=== PATIENT | male | born 1950 | race Caucasian/White ===

== ENCOUNTER 2021-08-22 14:20 | Outpatient (CLI) | payer MEDICARE, SELFPAY ==
--- NOTE | ~2021-08-22 | XR_ITS ---
EXAMINATION: XR shoulder RT min 2V INDICATION: Right shoulder pain TECHNIQUE: Two views of the right shoulder are submitted. COMPARISON: 11/28/2018 FINDINGS: Normal alignment. No fracture. There is advanced osteoarthritis of the glenohumeral and acr omioclavicular joints with interval worsening. Median sternotomy wires and mediastinal surgical clips are seen, likely from prior coronary artery bypass grafting. IMPRESSION: 1. Advanced osteoarthritis of the glenohumeral and acromioclavicular joints with interval worsening. Reviewed, dictated and finalized at location A. IMPRESSION: 1. Advanced osteoarthritis of the glenohumeral and acromioclavicular joints wit h interval worsening.
--- NOTE | ~2021-08-22 | XR_ITS ---
EXAMINATION: XR shoulder LT min 2V INDICATION: Left shoulder pain TECHNIQUE: Two views of the left shoulder are submitted. COMPARISON: 11/28/2018 FINDINGS: Normal alignment. No fracture. There is advanced osteoarthritis of the glenohumeral and acr omioclavicular joints with interval worsening. Soft tissues are unremarkable. IMPRESSION: 1. Advanced osteoarthritis of the glenohumeral and acromioclavicular joints with interval worsening. Reviewed, dictated and finalized at location A. IMPRESSION: 1. Advanced osteoarthritis of the glenohumeral and acromioclavicular joints wit h interval worsening.
== END 2021-08-22 14:21 | disposition home or self-care (01) ==
LOC: ANHIMG 14:31
PROVIDERS: PCP Nurse Practitioner Family; Visit Provider Internal Medicine Rheumatology
DX: M19.012 Primary osteoarthritis, left shoulder (principal)
CPT/HCPCS: 73030

== ENCOUNTER 2021-10-25 16:14 | Inpatient (IN) | payer MEDICARE, SELFPAY ==
--- NOTE | ~2021-10-25 | XR_ITS ---
EXAMINATION: XR chest 1V portable DATE: 10/25/2021 17:34 INDICATION: Chest pain. TECHNIQUE: A single frontal view of the chest was obtained. COMPARISON: Chest 2 views 12/09/2018 FINDINGS: There are interstitial opacities and hazy airspace opacities throughout the lungs bilateral ly. No pleural effusion or pneumothorax. The heart size is normal. Median sternotomy wires are noted. IMPRESSION: 1. Diffuse lung disease, consistent with mild pulmonary edema versus atypical pneumonia. Reviewed, dictated and finalized at location A. OPERATOR IMPRESSION: 1. Diffuse lung disease, consistent with mild pulmonary edema versus atypical p neumonia.
--- NOTE | ~2021-10-25 | CT_ITS ---
EXAMINATION:CT diagnostic chest wo con DATE: 10/25/2021 19:35 INDICATION: Shortness of breath. TECHNIQUE: Computed tomography (CT) of the chest was performed without intravenous contrast. Automate d exposure control and iterative reconstruction technique were employed. The dose-length product (DLP ) was 803.94 mGy-cm. COMPARISON: Chest single view 10/25/2021 FINDINGS: There are groundglass opacities throughout the lungs bilaterally. There is septal thickenin g in the mid and lower lung zones bilaterally. There are airspace opacities in lingula, medial segmen t right middle lobe, and anterobasal segment right lower lobe. There are a few nodules in left lower lobe measuring up to 8 mm. There is a 5 mm nodule in right upper lobe. No pleural effusion. The heart size is normal. There are coronary artery calcifications. No pericardial effusion. There are changes of coronary artery bypass grafting. There are gallstones in the gallbladder which is normal in size. There is a 4.1 cm fusiform infrarenal aortic aneurysm. There is severe osteoarthritis of the glenohu meral joints. There is mild thoracic spondylosis. IMPRESSION: 1. Diffuse lung disease, consistent with pulmonary edema versus atypical pneumonia. 2. Pulmonary nodules measuring up to 8 mm, which may be granulomatous disease or less likely malignan cy. Noncontrast low-dose chest CT is recommended in 3 months. 2. Partially visualized 4.1 cm fusiform infrarenal aortic aneurysm. Reviewed, dictated and finalized at location A. TY NET MAKER IMPRESSION: 1. Diffuse lung disease, consistent with pulmonary edema versus atypical pneumo kya. 2. Pulmonary nodules measuring up to 8 mm, which may be granulomatous disease o r less likely malignancy. Noncontrast low-dose chest CT is recommended in 3 mon ths. 2. Partially visualized 4.1 cm fusiform infrarenal aortic aneurysm.
[2021-10-25 16:20] VITALS: BP 140/77; PULSE 89; TEMP 37; O2SAT 87
--- NOTE | 2021-10-25 16:21 | ECG_ITS ---
Measurements Intervals [place] Rate: 71 P: 25 LA: 175 QRS: -20 QRSD: 109 T: 29 QT: 361 QTc: 395 Interpretive Statements SINUS RHYTHM FREQUENT ATRIAL PREMATURE COMPLEXES DELAYED PRECORDIAL R/S TRANSITION VOLTAGE CRITERIA FOR LVH BASELINE ARTIFACT- II, III, AVF, V3-V6 ABNORMAL ECG Electronically Signed On 10-25-2021 20:11:53 COST AND RISK ANALYSIS MANAGER by Alcides Gant D.O.
[2021-10-25 16:29] VITALS: O2SAT 91
--- NOTE | 2021-10-25 16:29 | PC.NURSE ---
Pt placed on 2L, 91%
[2021-10-25 16:40] VITALS: BP 142/84; PULSE 78; RESP 21; O2SAT 94
--- NOTE | 2021-10-25 16:47 | ED.ARRPALP ---
HPI - Arrhythmia/Palpitations General Chief Complaint: Arrhythmia/Palpitations Stated Complaint: AFib problems Time Seen by Provider: 10/25/21 16:38 Source: patient Mode of arrival: ambulatory Limitations: no limitations History of Present Illness HPI narrative: Patient is a 70-year-old male complaining of flutter, I know it is my a fib accompanied by weakness, decreased energy for the past 2 days. Patient states that he has a history of A. fib and on Xarelto for it. Patient also states that when he has A. fib or flutter his oxygen saturation usually drops. Patient denies any chest pain, shortness of breath, abdominal pain, nausea, vomiting, diaphoresis, fever or chills. Related Data Home Medications Medication Instructions Recorded Confirmed cholecalciferol (vitamin D3) 25 1,000 unit PO BID cap 10/26/19 06/02/21 mcg (1,000 unit) capsule clopidogrel 75 mg tablet 75 mg PO DAILY 10/26/19 06/02/21 folic acid 1 mg tablet 1 mg PO DAILY 10/26/19 06/02/21 leflunomide 20 mg tablet 20 mg PO DAILY 10/26/19 06/02/21 meloxicam 15 mg tablet 15 mg PO DAILY PRN 10/26/19 06/02/21 methotrexate sodium 2.5 mg tablet 2.5 mg PO .COMPLEX 10/26/19 06/02/21 metoprolol tartrate 50 mg tablet 50 mg PO DAILY 10/26/19 06/02/21 rivaroxaban 20 mg tablet 20 mg PO DAILY 10/26/19 06/02/21 rosuvastatin 5 mg tablet 5 mg PO DAILY 10/26/19 06/02/21 potassium chloride 10 mEq 10 meq PO BID tablet 06/02/21 06/02/21 tablet,extended release Allergies Allergy/AdvReac Type Severity Reaction Status Date / Time No Known Allergies Allergy Verified 06/02/21 08:45 Review of Systems Review of Systems: All systems reviewed & are unremarkable except as noted in HPI and below Constitutional: Constitutional: Denies body ache(s), Denies chills, Denies excessive sweating, Denies fatigue, Denies fever(s), Denies headache(s), Denies lethargy, Denies malaise, Denies weakness and Denies weight loss Eyes: Eyes: Denies blurry vision, Denies change in vision and Denies loss of vision ENT: Denies dizziness, Denies ear discharge, Denies headache(s), Denies lip swelling, Denies epistaxis, Denies nasal congestion, Denies neck pain, Denies throat swelling and Denies tongue swelling Cardiovascular: Cardiovascular: Denies chest pain, Denies chest pain at rest, Denies chest pain with activity, Denies diaphoresis, Denies edema, Denies irregular heart rhythm, Denies lightheadedness, Denies dyspnea and Denies dyspnea on exertion Respiratory: Respiratory: Denies chest congestion, Denies cough, Denies hemoptysis, Denies dyspnea and Denies dyspnea on exertion Gastrointestinal: Gastrointestinal: Denies abdominal pain, Denies melena, Denies hematochezia, Denies diarrhea, Denies nausea, Denies vomiting and Denies hematemesis Musculoskeletal: Musculoskeletal: Denies abnormal gait, Denies deformity, Denies joint swelling, Denies limited range of motion, Denies neck pain and Denies numbness Neurologic: Denies Abnormal speech present, Denies abnormal gait, Denies confusion, Denies dizziness, Denies headache(s), Denies focal weakness, Denies loss of vision, Denies numbness, Denies Other visual disturbances, Denies Sensory deficit (Neuro) and Denies weakness Psychiatric: Psychiatric: Denies confusion, Denies depression, Denies auditory hallucinations, Denies homicidal ideation and Denies suicidal ideation Endocrine: Endocrine: Denies cold intolerance, Denies excessive sweating, Denies fatigue, Denies heat intolerance and Denies palpitations Hematologic/Lymphatic: Hematologic/Lymphatic: Denies easy bleeding and Denies easy bruising Allergic/Immunologic: Allergic/Immunologic: Denies lip swelling, Denies throat swelling and Denies tongue swelling PMFSH Past Medical History Medical History Atrial fibrillation CAD (coronary artery disease) Essential (primary) hypertension Hyperlipidemia Hypothyroid Prediabetes Rheumatoid arthritis Surgical His
[2021-10-25 16:57] LABS: Basophils Absolute Auto 0.1 K/mm3 (0.0-0.1); Basophils Percent Auto 0.8 % (0.2-1.2); Eosinophils Percent Auto 0.2 % (0-4.4); Hematocrit 32.8 % (42.0-52.0); Hemoglobin 11.1 g/dL (14.0-18.0); Immature Granulocyte Absolute 0.09 K/mm3 (0.00-0.031); Lymphocytes Absolute Auto 2.33 K/mm3 (0.9-3.2); Lymphocytes Percent Auto 26.1 % (18.3-44.2); Mean Corpuscular HGB Conc 33.8 g/dl (32-36); Mean Corpuscular Hemoglobin 32.3 pg (26-34); Mean Corpuscular Volume 95.3 fl (80-100); Mean Platelet Volume 9.7 fl (7.4-10.4); Monocytes Absolute Auto 0.5 K/mm3 (0.1-0.6); Monocytes Percent Auto 5.8 % (2.6-8.5); Neutrophils Absolute Auto 5.9 K/mm3 (1.3-6.7); Neutrophils Percent Auto 66.1 % (45.5-73.1); Platelet Count Result 257 k/mm3 (150-375); Red Blood Count 3.44 M/mm3 (4.6-6.20); Red Cell Distribution Width 15.2 % (11.5-14.5); White Blood Count 8.9 K/mm3 (4.5-10.0)
[2021-10-25 17:04] LABS: Prothrombin Time 13.5 Seconds (11.1-14.7)
[2021-10-25 17:07] LABS: Alanine Aminotransferase 19 U/L (4-50); Albumin Level 3.9 g/dL (3.5-5.1); Alkaline Phosphatase 66 U/L (38-126); Anion Gap 10 mmol/L (8-16); Aspartate Amino Transferase 44 U/L (17-59); Bilirubin,Total 0.7 mg/dL (0.2-1.3); Blood Urea Nitrogen 41 mg/dL (9-20); Calcium 9.3 mg/dL (8.4-10.2); Carbon Dioxide 23 mmol/L (22-30); Chloride 98 mmol/L (98-107); Estimated CRCL calculation 49 ml/min; Estimated Glomerular Filt Rate 50; Glucose 109 mg/dL (65-110); Sodium 131 mmol/L (137-145)
[2021-10-25 17:21] LABS: NT Pro B Type Natriuretic Pept 754 pg/mL (5-100); Troponin I 0.087 ng/mL (0.000-0.034)
[2021-10-25] MEDS: ASPIRIN 81 MG CHEWABLE TABLET 324 MG PO (18:08)
[2021-10-25 18:10] VITALS: BP 144/68; PULSE 78; RESP 16; O2SAT 98
--- NOTE | 2021-10-25 20:38 | PM.IMHP ---
H&P: HPI History of Present Illness Date/Time: 10/25/21 20:38 Chief Complaint: Palpitation Narrative: The patient is a 70-year-old male who presents to the ED with feeling of palpitations in the past couple of weeks. It was intermittent in the beginning but within the past 3 days it has been more persistent and hence came to the ED for evaluation. He also reports increasing shortness of breath and also decreased energy and weakness with a past 3 days. He thinks that he had atrial fibrillation but he did not check his rate at home as he had similar symptoms in the past whenever she had problems with atrial fibrillation. He denies any chest pain or abdominal pain or nausea vomiting or fever chills. He has been feeling a little more congested over the past few weeks and has been noted increasing shortness of breath with exertion. He denies any leg swelling and in fact has been noticed the leg swelling has been much better. He is using compression stockings of very released yesterday at home. In the ER he was noted to be in sinus rhythm with nonspecific ST-T changes. He remains sinus rhythm on telemetry. Chest x-ray noted diffuse lung disease consistent with mild pulmonary edema versus atypical pneumonia. CT scan of the chest was also done which showed diffuse lung disease consistent with pulmonary edema versus atypical pneumonia along with pulmonary nodules measuring up to 8 mm which may be granulomatous disease or less likely malignancy. Noncontrast low-dose CT chest is recommended in 3 months. Partially visualized 4.1 cm fusiform infrarenal aortic aneurysm. Laboratory evaluation revealed normal WBC count mildly anemia normal platelet count mild hyponatremia and renal insufficiency with creatinine of 1.4. His baseline creatinine is noted to be at 0.9 at least from 2019. He also was noted to have troponin elevation 0.087 and a BNP of 754. He has been given of 40 mg of IV Lasix in the ER and was placed on oxygen as his oxygen level was low at 84 86% on room air on arrival. He is vaccinated for COVID. He also received a dose of dexamethasone 10 mg IV x1 he is getting tested for COVID and getting admitted for further evaluation and management. Review of Systems Review of Systems: - CONSTITUTIONAL: Denies weight loss, fever and chills. - HEENT: Denies changes in vision and hearing - RESPIRATORY: Reports SOB and cough. - CV: Reports palpitations and denies CP. - GI: Denies abdominal pain, nausea, vomiting and diarrhea. - : Denies dysuria and urinary frequency. - MSK: Denies myalgia and joint pain. - SKIN: Denies rash and pruritus. - NEUROLOGICAL: Denies headache and syncope. - PSYCHIATRIC: Denies recent changes in mood. Denies anxiety and depression. All systems reviewed & are unremarkable except as noted in HPI and below Constitutional: Constitutional: Reports fatigue and Reports weakness Neurologic: Reports weakness Endocrine: Endocrine: Reports fatigue PMFSH Past Medical History Medical History Atrial fibrillation CAD (coronary artery disease) Essential (primary) hypertension Hyperlipidemia Hypothyroid Prediabetes Rheumatoid arthritis Surgical History Surgical History Hx of heart artery stent 11/2018 Family History Family History Father Family history of thyroid disease Family history of lung cancer Grandparent Carcinoma of colon Family history of heart disease in male family member before age 55 Mother Family history of primary malignant neoplasm of liver Other Family history of malignant neoplasm Social History Social History Smoking status: Former smoker Smoking end date: 11/25/98 Alcohol intake: current Meds Home Medications and Allergies Home Medications
[2021-10-25 20:50] LABS: Alveolar/Arterial O2 Gradient 173.7 mmHg; Base Excess ABG 0.2 mEq/l (+/-2.0); Carboxyhemoglobin 1.4 % THb (0-2.0); Fractional Inspired Oxygen 40 %; HCO3 ABG 23.5 mEq/l (22.0-26.0); Methemoglobin ABG 0.3 %THb (0-1.5); Oxygen Content ABG 14.7 %vol (16.0-22.0); Oxygen Saturation ABG 95.6 % (95.0-100.0); Oxyhemoglobin 91.4 % THb (90.0-100.0); PCO2 ABG 33.5 mmHg (35.0-45.0); PO2 FiO2 Ratio Arterial Blood 1.83 %; Reduced Hemoglobin 6.9 %THb (0-5.0); Total Hemoglobin 11.4 g/dL (12.0-18.0); pH ABG 7.464 (7.350-7.450)
[2021-10-25 20:51] LABS: Device NASAL CANNULA; Modified Allen's Test Pass; Site Drawn RIGHT RADIAL
[2021-10-25] MEDS: FUROSEMIDE INJ 40 MG/4 ML VIAL IV PUSH (20:59)
[2021-10-25] MEDS: DEXAMETHASONE SOD PHOS INJ 4 MG/ML VIAL 10 MG IV PUSH (20:59)
[2021-10-25 22:06] VITALS: BP 118/55; PULSE 52; RESP 16; O2SAT 95
[2021-10-25 22:58] VITALS: BP 108/61; PULSE 65; RESP 20; O2SAT 94
[2021-10-26] VITALS (17 sets, daily range): BP systolic 105–170; BP diastolic 55–103; PULSE 45–93; RESP 11–20; O2SAT 88–99
--- NOTE | 2021-10-26 01:19 | ECG_ITS ---
Measurements Intervals [place] Rate: 47 P: 25 CO: 177 QRS: -19 QRSD: 114 T: 16 QT: 447 QTc: 397 Interpretive Statements SINUS BRADYCARDIA INTRAVENTRICULAR CONDUCTION DELAY LEFT VENTRICULAR HYPERTROPHY BASELINE ARTIFACT- I, II, AVR, AVF, V3-V6 BORDERLINE ECG Electronically Signed On 10-26-2021 6:35:45 ROLLER CHECKER by Alcides Gant D.O.
--- NOTE | 2021-10-26 07:00 | PC.NURSE ---
Pt. was on 5L via nasal cannula prior to RN arrival.
[2021-10-26] MEDS: LEVOTHYROXINE SODIUM 100 MCG TABLET 200 MCG PO (07:30)
[2021-10-26] MEDS: POTASSIUM CHLORIDE 10 MEQ TABLET.ER PO ×2 (07:30→18:14)
--- NOTE | 2021-10-26 07:55 | PC.NURSE ---
breakfast tray ordered @ 07:55
[2021-10-26 08:42] LABS: Troponin I 0.038 ng/mL (0.000-0.034)
[2021-10-26] MEDS: LEFLUNOMIDE 20 MG TABLET PO (08:43)
[2021-10-26] MEDS: CLOPIDOGREL BISULFATE 75 MG TABLET PO (08:43)
[2021-10-26] MEDS: CHOLECALCIFEROL 1,000 UNITS TABLET 1000 UNITS PO (08:43)
[2021-10-26] MEDS: FUROSEMIDE INJ 40 MG/4 ML VIAL IV PUSH ×2 (08:43→18:14)
[2021-10-26] MEDS: FOLIC ACID 1 MG TABLET PO (08:43)
[2021-10-26] MEDS: DOXYCYCLINE HYCLATE 100 MG TABLET PO ×2 (08:43→22:16)
[2021-10-26] MEDS: ROSUVASTATIN 2.5 MG TABLET PO (08:43)
--- NOTE | 2021-10-26 12:16 | PM.IMPN ---
Progress Note: A&P Assessment and Plan (1) Acute respiratory failure with hypoxemia: Code(s): J96.01 - Acute respiratory failure with hypoxia Status: Acute Assessment and Plan: Night likely secondary to pulmonary congestion in the setting of congestive heart failure. Currently patient is improving with diuresis. Monitor daily intake output, daily chemistry. Currently requiring 3 L oxygen. Chest x-ray confirms pulmonary edema. Chest CT suggestive of the same diagnosis. Continue IV diuresis while closely monitoring kidney function. Chest x-ray also suggests possible pneumonia. Patient carries a diagnosis of rheumatoid arthritis, previously on immunosuppression with leflunomide. Patient was started on p.o. doxycycline to cover for possible community-acquired pneumonia. (2) Elevated troponin: Code(s): R77.8 - Other specified abnormalities of plasma proteins Status: Acute Assessment and Plan: Patient modest elevation of troponin. Troponin are downtrending. On today's labs troponin normal at 0.03. Perform echocardiogram. (3) Prediabetes: Code(s): R73.03 - Prediabetes Status: Acute Assessment and Plan: Diet and exercise. Monitor Accu-Chek a.c. and HS. (4) Bilateral lower extremity edema: Code(s): R60.0 - Localized edema Status: Acute Assessment and Plan: Modest and well tolerated. Patient on chronic dose of Lasix at home. Low-salt diet is advised. (5) Atrial fibrillation: Qualifiers: Atrial fibrillation type: unspecified Qualified Code(s): I48.91 - Unspecified atrial fibrillation Code(s): I48.91 - Unspecified atrial fibrillation Status: Chronic Assessment and Plan: Likely paroxysmal atrial fibrillation. On latest EKG patient was in normal sinus rhythm. Currently rate/rythm controlled with some episode of bradycardia. Continue to monitor (6) Rheumatoid arthritis: Qualifiers: Rheumatoid arthritis location: multiple sites Rheumatoid factor presence: unspecified presence Qualified Code(s): M06.9 - Rheumatoid arthritis, unspecified Code(s): M06.9 - Rheumatoid arthritis, unspecified Status: Chronic Assessment and Plan: Resume home medications. (7) Hx of heart artery stent: Code(s): Z95.5 - Presence of coronary angioplasty implant and graft Status: Chronic Assessment and Plan: Currently patient is asymptomatic. No chest pain. Perform echocardiogram. (8) CAD (coronary artery disease): Qualifiers: Coronary Disease-Associated Artery/Lesion type: unspecified vessel or lesion type [place] vs. transplanted heart: [place] heart Associated angina: without angina Qualified Code(s): I25.10 - Atherosclerotic heart disease of [place] coronary artery without angina pectoris Code(s): I25.10 - Atherosclerotic heart disease of [place] coronary artery without angina pectoris Status: Chronic Assessment and Plan: Currently patient is symptomatic; home stable hemodynamically without chest pain. Troponin downtrending. Perform echocardiogram. (9) Hyperlipidemia: Qualifiers: Hyperlipidemia type: unspecified Qualified Code(s): E78.5 - Hyperlipidemia, unspecified Code(s): E78.5 - Hyperlipidemia, unspecified Status: Chronic Assessment and Plan: Resume statin (10) Hypothyroid: Qualifiers: Hypothyroidism type: acquired Qualified Code(s): E03.9 - Hypothyroidism, unspecified Code(s): E03.9 - Hypothyroidism, unspecified Status: Chronic (11) Essential (primary) hypertension: Code(s): I10 - Essential (primary) hypertension Status: Chronic Assessment and Plan: Blood pressure currently under control resume home medication. (12) Pulmonary nodule: Code(s): R91.1 - Solitary pulmonary nodule Status: Acute Assessment and Plan: Follow-up CT scan as an outpatient on a [facility]
--- NOTE | 2021-10-26 12:24 | PC.NURSE ---
lunch tray ordered @ [id number]
--- NOTE | 2021-10-26 12:44 | PC.NURSE ---
Pt. titrated down to 3L via nasal cannula. Pt. oxygen saturation is 99%.
[2021-10-26 17:37] LABS: SARS-CoV-2 RNA PCR Negative
--- NOTE | 2021-10-26 17:40 | PM.CNCAR ---
Assessment and Plan Assessment and plan (1) CHF (congestive heart failure): Code(s): I50.9 - Heart failure, unspecified Status: Acute Assessment and Plan: Presented with complaints of progressive shortness of breath over the past couple of weeks. Chest x-ray with evidence of pulmonary edema, possible pneumonia. Patient has experienced clinical improvement since receiving several doses of IV diuretic. Breathing comfortably on 2 L of oxygen. He does have chronic bilateral lower extremity edema that is well managed with consistent use of compression stockings, on 40 mg Lasix b.i.d. at home. Does not have any significant lower extremity edema on exam today. Agree with 40 mg IV furosemide for now, likely switch to oral tomorrow Close monitoring of renal function. BMP in the morning. Echocardiogram has been ordered Further recommendations to follow review of echocardiogram. (2) Atrial fibrillation: Qualifiers: Atrial fibrillation type: unspecified Qualified Code(s): I48.91 - Unspecified atrial fibrillation Code(s): I48.91 - Unspecified atrial fibrillation Status: Chronic Assessment and Plan: History of paroxysmal atrial fibrillation. Patient says that he was experiencing some palpitations earlier this morning but they have since resolved. EKG from the emergency department shows sinus bradycardia. He is in sinus rhythm at the time of exam. He is on Xarelto for anticoagulation. (3) CAD (coronary artery disease): Qualifiers: Associated angina: without angina Coronary Disease-Associated Artery/Lesion type: unspecified vessel or lesion type [place] vs. transplanted heart: [place] heart Qualified Code(s): I25.10 - Atherosclerotic heart disease of [place] coronary artery without angina pectoris Code(s): I25.10 - Atherosclerotic heart disease of [place] coronary artery without angina pectoris Status: Chronic Assessment and Plan: History of coronary artery disease with multiple stents and CABG in 2006. He is not having any chest pain. His coronary disease is stable. Continue aspirin, statin. He also has Plavix on his medication list-I do not see an indication for this as his most recent intervention was more than 1 year ago. (4) Acute respiratory failure with hypoxemia: Code(s): J96.01 - Acute respiratory failure with hypoxia Status: Acute Assessment and Plan: Presented with respiratory distress and initially had O2 saturations in the 80s. Has improved with diuresis and is now saturating well on 2 L of oxygen. Possibly secondary to acute congestive heart failure. Also possible pneumonia. He has been started on doxycycline for possible CAP. (5) Elevated troponin: Code(s): R77.8 - Other specified abnormalities of plasma proteins Status: Acute Assessment and Plan: Mild, flat elevation. Probably secondary to CHF exacerbation. He does not have any anginal symptoms. No need for further workup in this regard. History of Present Illness History of Present Illness Consult date/time: 10/26/21 17:40 Requesting physician: Black Oden MD Consult reason: congestive heart failure Reason For Visit: Acute Respiratory Failure,Atrial Fib,Elevated Trop Narrative: Mr. Lawton is a 70-year-old male with a past medical history of coronary artery disease with stenting in 1998 and 2018 and CABG x2 in 2006,and paroxysmal atrial fibrillation. This is a patient who is followed in our office by Dr. Blount. He presented to the emergency department with complaints of shortness of breath. He has been experiencing worsening shortness of breath over the past couple of weeks. He also tells me that he has been having night sweats intermittently for 2-3 weeks. He did also have a fever on Saturday night of 100.8? according to the patient. He called his primary care doctor today to tell him about the symptoms and he was advised to proceed to the e
[2021-10-26] MEDS: RIVAROXABAN 20 MG TABLET PO (18:15)
--- NOTE | 2021-10-26 23:34 | PC.NURSE ---
Pt desat to 88% on 2L, pt moved to 4L O2. O2 sat at 92% at this time.
[2021-10-27] VITALS (53 sets, daily range): BP systolic 129–157; BP diastolic 57–93; PULSE 69–130; RESP 16–33; O2SAT 86–100
--- NOTE | 2021-10-27 | ECHO_ITS ---
Patient Info Name: Augusto Lawton Age: 70 years : 1950 Gender: Male Ht: 66 in Wt: 215 lbs BSA: 2.17 m2 HR: 75 bpm BP: 143 / 63 mmHg Heart Rhythm: Sinus Rhythm Technical Quality: Fair Exam Date: 10/27/2021 10:32 AM Exam Location: [facility] Pulmonary Exam Room: ED10 Patient Status: Inpatient Admit Date: 10/26/2021 Staff Ordering Physician: Petros Alvarez MD Metal Cut Off Saw Tender: Maria Isabel Guardado RDCS Attending Provider: Ele Miles MD Exam Type: CA echo dop color flow w con Study Info Indications - CAD CABG CHF Complete two-dimensional, color flow and Doppler transthoracic echocardiogram is performed with contrast to opacify the left ventricle and to improve the deliniation of the left ventricle endocardial borders. Contrast/Agitated Saline Contrast/Ag. Saline: Definity Amount: --- ml Administered By: Madeline Trotter RN Existing IV Access: Yes Summary 1. Definity contrast used to improve visualization. 2. There is mild concentric increased left ventricular wall thickness. 3. Left ventricular systolic function is normal, estimated at 65-70%. 4. Right ventricular chamber dimension is normal. 5. Left atrial chamber dimension is moderately enlarged. 6. Mildly sclerotic aortic valve otherwise no significant valve pathology. 7. Technically difficult examination. Left Ventricle Left ventricular chamber dimension is normal. Left ventricular systolic function is normal, estimated at 65-70%. There is mild concentric increased left ventricular wall thickness. The left ventricular diastolic function is grade I diastolic dysfunction. Definity contrast used to improve visualization. Right Ventricle Right ventricular chamber dimension is normal. Left Atria Left atrial chamber dimension is moderately enlarged. Right Atria Right atrial chamber dimension is normal. Aortic Valve The aortic valve is trileaflet. There is mild aortic valve sclerosis. Pulmonic Valve The pulmonic valve is not well visualized. Mitral Valve The mitral valve has normal leaflets. Tricuspid Valve The tricuspid valve leaflets are not well visualized. Pericardium/Pleural The pericardium appears normal. Aorta The aortic root size at the sinus of Valsalva is normal. Left Ventricular Outflow Tract Name Value Normal LVOT 2D LVOT Diameter 2.14 cm LVOT Doppler LVOT Peak Gradient 6 mmHg LVOT Mean Gradient 4 mmHg LVOT VTI 19.96 cm LVOT VTI/AV VTI Ratio 1.11 LVOT Stroke Volume 71.95 ml LVOT CO 22.24 l/min LVOT CI 10.25 L/min/m2 Pulmonic Valve Name Value Normal PV Doppler PV Peak Gradient 4 mmH
--- NOTE | 2021-10-27 08:04 | PC.NURSE ---
ordered breakfast tray for pt
[2021-10-27] MEDS: POTASSIUM CHLORIDE 10 MEQ TABLET.ER PO (08:08)
[2021-10-27] MEDS: LEVOTHYROXINE SODIUM 100 MCG TABLET 200 MCG PO (08:08)
--- NOTE | 2021-10-27 08:10 | PC.NURSE ---
Pt sitting up in chair. Pt states I am leaving today, no matter what. I can't take this anymore, im so uncomfortable
[2021-10-27 08:48] LABS: Anion Gap 13 mmol/L (8-16); Blood Urea Nitrogen 33 mg/dL (9-20); Calcium 9.5 mg/dL (8.4-10.2); Carbon Dioxide 24 mmol/L (22-30); Chloride 96 mmol/L (98-107); Estimated CRCL calculation 67 ml/min; Estimated Glomerular Filt Rate > 60; Glucose 84 mg/dL (65-110); Potassium 3.8 mmol/L (3.4-5.0); Sodium 133 mmol/L (137-145)
[2021-10-27] MEDS: RIVAROXABAN 20 MG TABLET PO (09:42)
[2021-10-27] MEDS: CHOLECALCIFEROL 1,000 UNITS TABLET 1000 UNITS PO (09:43)
[2021-10-27] MEDS: LEFLUNOMIDE 20 MG TABLET PO (09:43)
[2021-10-27] MEDS: DOXYCYCLINE HYCLATE 100 MG TABLET PO (09:43)
[2021-10-27] MEDS: ROSUVASTATIN 2.5 MG TABLET PO (09:44)
[2021-10-27] MEDS: FUROSEMIDE INJ 40 MG/4 ML VIAL IV PUSH ×2 (09:44→15:49)
[2021-10-27] MEDS: FOLIC ACID 1 MG TABLET PO (09:44)
[2021-10-27] MEDS: PERFLUTREN LIPID MICROSPHERES 1.5 ML VIAL DILUTED TO 10 ML TOTAL VOLUME (11:01)
--- NOTE | 2021-10-27 11:07 | PM.IMPN ---
Progress Note: A&P Assessment and Plan (1) Acute respiratory failure with hypoxemia: Code(s): J96.01 - Acute respiratory failure with hypoxia Status: Acute Assessment and Plan: This is likely secondary to pulmonary congestion in the setting of congestive heart failure. Currently patient is improving with diuresis. Monitor daily intake output, daily chemistry. Currently requiring 3 L oxygen. Chest x-ray confirms pulmonary edema. Chest CT suggestive of the same diagnosis. Continue IV diuresis while closely monitoring kidney function. Chest x-ray also suggests possible pneumonia. Patient carries a diagnosis of rheumatoid arthritis, previously on immunosuppression with leflunomide. Patient was started on p.o. doxycycline to cover for possible community-acquired pneumonia. (2) Atypical pneumonia: Code(s): J18.9 - Pneumonia, unspecified organism Status: Acute Assessment and Plan: Based on x-ray appearance on the. No leukocytosis. No fever. Patient started on doxycycline empirically. Blood cultures are pending. Patient decided to sign out AMA. (3) Elevated troponin: Code(s): R77.8 - Other specified abnormalities of plasma proteins Status: Acute Assessment and Plan: Patient modest elevation of troponin. Troponin are downtrending. On today's labs troponin normal at 0.03. Perform echocardiogram. (4) Prediabetes: Code(s): R73.03 - Prediabetes Status: Acute Assessment and Plan: Diet and exercise. Monitor Accu-Chek a.c. and HS. (5) Bilateral lower extremity edema: Code(s): R60.0 - Localized edema Status: Acute Assessment and Plan: Modest and well tolerated. Patient on chronic dose of Lasix at home. Low-salt diet is advised. (6) Atrial fibrillation: Qualifiers: Atrial fibrillation type: unspecified Qualified Code(s): I48.91 - Unspecified atrial fibrillation Code(s): I48.91 - Unspecified atrial fibrillation Status: Chronic Assessment and Plan: Likely paroxysmal atrial fibrillation. On latest EKG patient was in normal sinus rhythm. Currently rate/rythm controlled with some episode of bradycardia. Continue to monitor (7) Rheumatoid arthritis: Qualifiers: Rheumatoid arthritis location: multiple sites Rheumatoid factor presence: unspecified presence Qualified Code(s): M06.9 - Rheumatoid arthritis, unspecified Code(s): M06.9 - Rheumatoid arthritis, unspecified Status: Chronic Assessment and Plan: Resume home medications. (8) Hx of heart artery stent: Code(s): Z95.5 - Presence of coronary angioplasty implant and graft Status: Chronic Assessment and Plan: Currently patient is asymptomatic. No chest pain. Perform echocardiogram. (9) CAD (coronary artery disease): Qualifiers: Associated angina: without angina Coronary Disease-Associated Artery/Lesion type: unspecified vessel or lesion type [place] vs. transplanted heart: [place] heart Qualified Code(s): I25.10 - Atherosclerotic heart disease of [place] coronary artery without angina pectoris Code(s): I25.10 - Atherosclerotic heart disease of [place] coronary artery without angina pectoris Status: Chronic Assessment and Plan: Currently patient is symptomatic; home stable hemodynamically without chest pain. Troponin downtrending. Perform echocardiogram. (10) Hyperlipidemia: Qualifiers: Hyperlipidemia type: unspecified Qualified Code(s): E78.5 - Hyperlipidemia, unspecified Code(s): E78.5 - Hyperlipidemia, unspecified Status: Chronic Assessment and Plan: Resume statin (11) Hypothyroid: Qualifiers: Hypothyroidism type: acquired Qualified Code(s): E03.9 - Hypothyroidism, unspecified Code(s): E03.9 - Hypothyroidism, unspecified Status: Chronic (12) Essential (primary) hypertension: Code(s): I10 - Essential (p
--- NOTE | 2021-10-27 11:30 | PC.NURSE ---
Lunch tray ordered for pt
--- NOTE | 2021-10-27 12:19 | PM.DS ---
DS: Admitting Diagnosis Discharge Date 10/27/2021 Admitting Diagnosis #Palpitation #atypical community-acquired pneumonia # PAM mild creatinine 1.4 baseline creatinine 0.9 monitor renal function with diuresis # elevated troponin EKG # acute congestive heart failure # pulmonary nodules # infrarenal abdominal aortic aneurysm 4.1 cm # atrial fibrillation currently sinus rhythm # coronary artery disease status post CABG in 2006 and stent placement 2019 # chronic lower extremity edema uses lower extremity compression stockings currently no swelling noted # hypertension # hyperlipidemia # hypothyroidism # rheumatoid arthritis # borderline diabetes monitor # DVT prophylaxis: On Xarelto which will be resumed # Full code status DS: Discharge Diagnosis Discharge Diagnosis (1) Acute respiratory failure with hypoxemia: Code(s): J96.01 - Acute respiratory failure with hypoxia Status: Acute Assessment and Plan: Acute respiratory failure presenting with tachycardia and hypoxia; likely secondary to pulmonary congestion in the setting of congestive heart failure. Echocardiogram reveals normal ejection fraction 60-65% and only grade 1 diastolic dysfunction. Currently patient is clinically improving with diuresis. Monitor daily intake output, daily chemistry. Currently requiring 3 L oxygen. Chest x-ray confirms pulmonary edema. Chest CT suggestive of the same diagnosis. Continue IV diuresis while closely monitoring kidney function. Chest x-ray also suggests possible pneumonia. Patient carries a diagnosis of rheumatoid arthritis, previously on immunosuppression with leflunomide. Patient was started on p.o. doxycycline to cover for possible community-acquired pneumonia. (2) Elevated troponin: Code(s): R77.8 - Other specified abnormalities of plasma proteins Status: Acute Assessment and Plan: Patient modest elevation of troponin. Troponin are downtrending. On today's labs troponin normal at 0.03. Perform echocardiogram. (3) Prediabetes: Code(s): R73.03 - Prediabetes Status: Acute Assessment and Plan: Diet and exercise. Monitor Accu-Chek a.c. and HS. (4) Bilateral lower extremity edema: Code(s): R60.0 - Localized edema Status: Acute Assessment and Plan: Modest and well tolerated. Patient on chronic dose of Lasix at home. Low-salt diet, daily weight measurements are advised. . (5) Atrial fibrillation: Qualifiers: Atrial fibrillation type: unspecified Qualified Code(s): I48.91 - Unspecified atrial fibrillation Code(s): I48.91 - Unspecified atrial fibrillation Status: Chronic Assessment and Plan: Likely paroxysmal atrial fibrillation. On latest EKG patient was in normal sinus rhythm. Currently rate/rythm controlled with some episode of bradycardia. Continue to monitor (6) Rheumatoid arthritis: Qualifiers: Rheumatoid arthritis location: multiple sites Rheumatoid factor presence: unspecified presence Qualified Code(s): M06.9 - Rheumatoid arthritis, unspecified Code(s): M06.9 - Rheumatoid arthritis, unspecified Status: Chronic Assessment and Plan: Resume home medications. (7) Hx of heart artery stent: Code(s): Z95.5 - Presence of coronary angioplasty implant and graft Status: Chronic Assessment and Plan: Currently patient is asymptomatic. No chest pain. Bedside echocardiogram reveals left ventricular systolic function is normal, estimated at 65-70%. Right ventricular chamber dimension is normal. Left atrial chamber dimension is moderately enlarged. Mildly sclerotic aortic valve otherwise no significant valve pathology. Technically difficult examination. . (8) CAD (coronary artery disease): Qualifiers: Associated angina: without angina Coronary Disease-Associated Artery/Lesion type: unspecified vessel or lesion type [place] vs. transplanted heart:
--- NOTE | 2021-10-27 12:42 | PC.NURSE ---
special education secretary delivered room tray to pt. pt declined stating he was not hungry and just wanted to the tea. [id number]
--- NOTE | 2021-10-27 14:51 | HOMEO2EVAL ---
Evaluation was performed at [facility] Home Oxygen Evaluation RC: Home Oxygen (O2) Evaluation Start: 10/27/21 12:18 Freq: ONCE Status: Active Protocol: RPE Activity Type Activity Date Activity User E-Sign Co-Sign Detail Recorded Client Recorded Date Recorded By Document 10/27/21 14:15 [email or web address] [email or web address] 10/27/21 14:51 SCOOBY Document 10/27/21 14:16 [email or web address] [email or web address] 10/27/21 14:51 SCOOYB Document 10/27/21 14:17 [email or web address] [email or web address] 10/27/21 14:51 SCOOBY Document 10/27/21 14:18 [email or web address] [email or web address] 10/27/21 14:51 SCOOBY Document 10/27/21 14:20 [email or web address] [email or web address] 10/27/21 14:51 SCOOBY Document 10/27/21 14:21 [email or web address] [email or web address] 10/27/21 14:51 SCOOBY Document 10/27/21 14:25 [email or web address] [email or web address] 10/27/21 14:51 SCOOBY 10/27/21 10/27/21 10/27/21 14:15 14:16 14:17 Home O2 Evaluation Test Phase Resting Resting Resting Oxygen Delivery Room Air Nasal Cannula Nasal Cannula Oxygen Flow Rate (L/min) 1 2 Pulse Oximetry (90-100 %) 87 L 87 L 87 L Pulse Rate (60-100 beats/min) 102 H Home Oxygen Evaluation Comments Treatment Charges O2 Evaluation - Inpatient 10/27/21 10/27/21 10/27/21 14:18 14:20 14:21 Home O2 Evaluation Test Phase Resting Exercise Exercise Oxygen Delivery Nasal Cannula Nasal Cannula Nasal Cannula Oxygen Flow Rate (L/min) 3 3 4 Pulse Oximetry (90-100 %) 90 87 L 91 Pulse Rate (60-100 beats/min) 125 H 126 H Home Oxygen Evaluation Comments Pt requires 3 L resting and 4 L with exertion Treatment Charges 10/27/21 14:25 Home O2 Evaluation Test Phase Resting Oxygen Delivery Nasal Cannula Oxygen Flow Rate (L/min) 3 Pulse Oximetry (90-100 %) 90 Pulse Rate (60-100 beats/min) 111 H Home Oxygen Evaluation Comments Treatment Charges
--- NOTE | 2021-10-27 14:53 | PC.NURSE ---
Pt placed in recliner for comfort
--- NOTE | 2021-10-27 15:12 | PCRCNOTE ---
Home O2 eval done, Requires 3 l rest and 4 l with exertion. Will deliver tank to room for transport home. Set up with [facility].
== END 2021-10-27 16:13 | disposition left against medical advice (07) | DRG 291 ==
LOC: ANHED 19:56 → ANHIMU 10-26 08:54 → ANH3MEDSUR 11-06 11:09
PROVIDERS: Internal Medicine; Nurse Practitioner; Admitting Provider Internal Medicine; Emergency Provider Emergency Medicine; PCP Nurse Practitioner Family; Visit Provider Internal Medicine
DX: I11.0 Hypertensive heart disease with heart failure (principal); J96.01 Acute respiratory failure with hypoxia; J18.9 Pneumonia, unspecified organism; I50.9 Heart failure, unspecified; Z20.822 Contact with and (suspected) exposure to COVID-19; I48.91 Unspecified atrial fibrillation; R77.8 Other specified abnormalities of plasma proteins; I25.10 Atherosclerotic heart disease of native coronary artery without angina pectoris; E78.5 Hyperlipidemia, unspecified; E03.9 Hypothyroidism, unspecified; M06.9 Rheumatoid arthritis, unspecified; R73.03 Prediabetes; I71.4 Abdominal aortic aneurysm, without rupture; R91.1 Solitary pulmonary nodule; Z87.891 Personal history of nicotine dependence; Z79.01 Long term (current) use of anticoagulants; Z79.899 Other long term (current) drug therapy; Z95.5 Presence of coronary angioplasty implant and graft; Z95.1 Presence of aortocoronary bypass graft
CPT/HCPCS: 36415; 36600; 71045; 71250; 80048; 80053; 82375; 82805; 83050; 83880; 84484; 85025; 85610; 85730; 93005; 94618; 96374; 96375; 99291; A9270; C8929; C9803; G0378; J1100; J1940; Q9957; U0003; U0005

== ENCOUNTER 2022-06-08 09:50 | Outpatient (CLI) | payer MEDICARE, SELFPAY ==
[2022-06-08 18:55] LABS: Basophils Absolute Auto 0.1 K/mm3 (0.0-0.1); Basophils Percent Auto 0.9 % (0.2-1.2); Eosinophils Percent Auto 0.5 % (0-4.4); Hematocrit 34.6 % (42.0-52.0); Hemoglobin 11.3 g/dL (14.0-18.0); Immature Granulocyte Absolute 0.07 K/mm3 (0.00-0.031); Immature Granulocyte Percent A 0.9 % (0-0.5); Mean Corpuscular HGB Conc 32.7 g/dl (32-36); Mean Corpuscular Volume 101.2 fl (80-100); Mean Platelet Volume 10.3 fl (7.4-10.4); Monocytes Absolute Auto 0.4 K/mm3 (0.1-0.6); Monocytes Percent Auto 4.6 % (2.6-8.5); Neutrophils Absolute Auto 6.3 K/mm3 (1.3-6.7); Neutrophils Percent Auto 78.1 % (45.5-73.1); Platelet Count Result 257 k/mm3 (150-375); Red Blood Count 3.42 M/mm3 (4.6-6.20); Red Cell Distribution Width 15.6 % (11.5-14.5)
[2022-06-08 19:33] LABS: Vitamin D 25 Hydroxy 57.9 ng/mL
[2022-06-08 19:36] LABS: Alanine Aminotransferase 22 U/L (6-50); Albumin Level 4.1 g/dL (3.5-5.1); Alkaline Phosphatase 54 U/L (38-126); Anion Gap 8 mmol/L (8-16); Aspartate Amino Transferase 24 U/L (17-59); Bilirubin,Total 0.6 mg/dL (0.2-1.3); Blood Urea Nitrogen 25 mg/dL (9-20); Calcium 8.7 mg/dL (8.4-10.2); Carbon Dioxide 24 mmol/L (22-30); Chloride 105 mmol/L (98-107); Cholesterol 153 mg/dL (0-200); Estimated Glomerular Filt Rate 60; Glucose 91 mg/dL (65-110); HDL Direct 71 mg/dL; Potassium 3.9 mmol/L (3.4-5.0); Sodium 137 mmol/L (137-145); Triglycerides 146 mg/dL (<150)
[2022-06-08 19:47] LABS: LDL Cholesterol Direct 43 mg/dL
[2022-06-08 20:04] LABS: Thyroid Stimulating Hormone 0.169 uIU/mL (0.465-4.680)
[2022-06-08 20:05] LABS: Hemoglobin A1C 5.3 % (<5.7)
== END 2022-06-08 09:51 | disposition home or self-care (01) ==
LOC: ANHGOSHLAB 09:57
PROVIDERS: PCP Family Medicine; Visit Provider Nurse Practitioner Family
DX: Z12.5 Encounter for screening for malignant neoplasm of prostate (principal); E03.9 Hypothyroidism, unspecified; I10 Essential (primary) hypertension; R73.03 Prediabetes; E55.9 Vitamin D deficiency, unspecified; E78.5 Hyperlipidemia, unspecified
CPT/HCPCS: 36415; 80053; 80061; 82306; 83036; 84153; 84443; 85025; G0103

== ENCOUNTER 2022-06-15 08:49 | Outpatient (CLI) | payer MEDICARE, SELFPAY ==
--- NOTE | ~2022-06-15 | CT_ITS ---
EXAMINATION: CT lung screening DATE: 06/15/2022 09:02 INDICATION: Screening for lung cancer. History of tobacco dependence. TECHNIQUE: Computed tomography (CT) of the chest was performed without intravenous contrast. The dose -length product was 560.38 mGy-cm. Automated exposure control and iterative reconstruction technique were employed. COMPARISON: CT dated 10/25/2021 FINDINGS: Heart size is normal. No significant pleural or pericardial effusion. Status post median st ernotomy for CABG. Heart size is normal. No significant lymphadenopathy. No gallstones. There is foca l right lower lobe airspace disease with associated interstitial changes which may be infectious or i nflammatory. There is a 2 mm right lower lobe nodule. There are a few small 2-3 mm nodules in the lef t lower lobe and left upper lobe. There is a 6 mm left lower lobe nodule, image 103, decreased in siz e compared with prior study.. There are gallstones. There is left perinephric stranding, nonspecific. IMPRESSION: 1. Lung-RADS category 2: Benign appearance or behavior. Continue annual screening with noncontrast lo w-dose chest CT in 12 months. Reviewed, dictated and finalized at location A. IMPRESSION: 1. Lung-RADS category 2: Benign appearance or behavior. Continue annual screeni ng with noncontrast low-dose chest CT in 12 months.
== END 2022-06-15 08:50 | disposition home or self-care (01) ==
LOC: ANHIMG 08:50
PROVIDERS: PCP Family Medicine; Visit Provider Nurse Practitioner Family
DX: Z12.2 Encounter for screening for malignant neoplasm of respiratory organs (principal); Z87.891 Personal history of nicotine dependence
CPT/HCPCS: 71271

== ENCOUNTER 2022-07-17 08:47 | Emergency (ER) | payer MEDICARE, OTHER, SELFPAY ==
--- NOTE | ~2022-07-17 | XR_ITS ---
EXAMINATION: XR pelvis 1-2V, XR femur LT min 2V DATE: 07/17/2022 09:43 INDICATION: Left hip and leg pain TECHNIQUE: 1. An anteroposterior view of the pelvis was obtained. 2. AP and lateral views of the left femur were obtained on overlapping proximal and distal images. COMPARISON: Left hip radiographs dated 11/28/2018 FINDINGS: Bone alignment is normal. Mild osteoarthritis at the bilateral hip and sacroiliac joints. Tricompartm ental osteoarthritis at the left knee, severe at the medial and patellofemoral compartments and mild to moderate severity at the lateral compartment. No left knee joint effusion. Heterotopic ossificatio ns near the left ischial tuberosity at the expected location of the proximal hamstring tendon origin most likely either enthesopathic or sequela of old trauma. Moderate to severe lumbar spondylosis. Sca ttered atherosclerotic calcifications in the pelvis and bilateral thighs, also extending into the vis ualized left calf. IMPRESSION: 1. Polyarticular osteoarthritis, severe at the medial and patellofemoral compartments of the left kne e and mild at the bilateral hip and sacroiliac joints. 2. Moderate to severe lumbar spondylosis. 3. Heterotopic ossification at the proximal left hamstring tendon origins which could be either enthe sopathic or sequela of chronic trauma. Reviewed, dictated and finalized at location A. IMPRESSION: 1. Polyarticular osteoarthritis, severe at the medial and patellofemoral compar tments of the left knee and mild at the bilateral hip and sacroiliac joints. 2. Moderate to severe lumbar spondylosis. 3. Heterotopic ossification at the proximal left hamstring tendon origins which could be either enthesopathic or sequela of chronic trauma.
[2022-07-17 09:01] VITALS: BP 193/93; PULSE 64; RESP 16; TEMP 36.8; O2SAT 99
--- NOTE | 2022-07-17 09:15 | ED.EXTPRO ---
HPI - Extremity Problem General Chief complaint: Extremity Problem,Nontraumatic Stated complaint: L sided pelvic pain Time Seen by Provider: 07/17/22 08:58 History of Present Illness HPI Narrative: This is a 71-year-old male past medical history of coronary disease, and complaining of left hip and low back pain, described as dull, 8 out of 10, radiating to the left thigh, not associate with fevers or chills. 3 days ago, he says he was working in the yard, weeding plants, but denies heavy lifting. He denies other trauma to the leg or back. He denies loss of bowel or bladder control or loss of sensation in the groin. Related Data Home Medications Medication Instructions Recorded Confirmed clopidogrel 75 mg tablet 75 mg PO DAILY 10/26/19 06/08/22 folic acid 1 mg tablet 1 mg PO DAILY 10/26/19 06/08/22 methotrexate sodium 2.5 mg tablet 2.5 mg PO .COMPLEX 10/26/19 06/08/22 metoprolol tartrate 50 mg tablet 50 mg PO DAILY 10/26/19 06/08/22 rivaroxaban 20 mg tablet (Xarelto) 20 mg PO DAILY 10/26/19 06/08/22 potassium chloride 10 mEq 10 meq PO BID 06/02/21 06/08/22 tablet,extended release (Klor-Con) cholecalciferol (vitamin D3) 25 25 mcg PO DAILY 10/27/21 06/08/22 mcg (1,000 unit) capsule rosuvastatin 10 mg tablet 10 mg PO DAILY 10/27/21 06/08/22 aspirin 81 mg capsule 81 mg PO DAILY 06/08/22 06/08/22 Allergies Allergy/AdvReac Type Severity Reaction Status Date / Time No Known Allergies Allergy Verified 06/08/22 08:59 Review of Systems Review of Systems: CONSTITUTIONAL: Denies fever, chills, or sweats. EYES: Denies visual changes, redness, or discharge. ENT: Denies rhinorrhea, congestion, sore throat, or otalgia. CARDIOVASCULAR: Denies chest pain, palpitations, or edema. RESPIRATORY: Denies cough or dyspnea. GASTROINTESTINAL: Denies abdominal pain, nausea, vomiting, or diarrhea. GENITOURINARY: Denies dysuria or hematuria. SKIN: Denies rash or itching. MUSCULOSKELETAL: Left hip and leg pain, denies back pain, or myalgia. NEUROLOGIC: Denies headache, numbness, dizziness, or weakness. PSYCHIATRIC: Denies anxiety or depression. [facility] Past Medical History Medical History (Updated 07/18/22 @ 00:00 by Kit Daemon) Atrial fibrillation CAD (coronary artery disease) Essential (primary) hypertension Hyperlipidemia Hypothyroid Prediabetes Rheumatoid arthritis Vitamin D deficiency Surgical History Surgical History Hx of heart artery stent 11/2018 Family History Family History Father Family history of thyroid disease Family history of lung cancer Grandparent Carcinoma of colon Family history of heart disease in male family member before age 55 Mother Family history of primary malignant neoplasm of liver Other Family history of malignant neoplasm Social History Social History Smoking status: Former smoker Smoking end date: 11/24/99 Alcohol intake: former Substance use: never Additional living arrangements comments: Gender identity (if verbalized by the patient): Male Sexual Orientation (if Verbalized by the Patient): Straight or Heterosexual Spiritual care concerns: No Exam Narrative: GENERAL: Well-appearing, well-nourished, and in no acute distress. HEAD: Normocephalic, atraumatic. EYES: PERRLA and EOMI. ENT: Nares clear, no rhinorrhea or epistaxis. Mucous membranes moist. Oropharynx without tonsillar hypertrophy exudate or other lesions. NECK: Supple. No adenopathy or masses. No carotid bruits or JVD CHEST: Clear to auscultation. No respiratory distress. No wheezes rales or rhonchi HEART: Regular rate and rhythm. No murmur heard. Normal peripheral pulses. ABDOMEN: Soft, nontender, nondistended, normal active bowel sounds. BACK: No midline spine tenderness to palpation. No step-off or crepitus. No paraspinal muscle tendern
--- NOTE | 2022-07-17 09:20 | PC.NURSE ---
Patient to radiology
[2022-07-17] MEDS: LIDOCAINE 5% PATCH 1 PATCH TRANSDERM (09:47)
--- NOTE | 2022-07-17 09:59 | PC.NURSE ---
PAtient states he is unable to urinate at this time
[2022-07-17 10:33] LABS: Appearance Urine Clear (Clear); Bilirubin Urine Negative (Negative); Blood Urine Negative (Negative); Color Urine Yellow (Yellow); Glucose Urine UA Negative (Negative); Ketones Urine Negative (Negative); Leukocyte Esterase Ur Negative LEU/UL (Negative); Nitrate Urine Negative (Negative); Protein Urine Negative (Negative); Specific Grav Ur <= 1.005 (1.001-1.035); Urobilinogen Urine 0.2 mg/dL (<2.0)
[2022-07-17 10:37] LABS: Add Urine Microscopic? NO
[2022-07-17 11:09] VITALS: BP 181/84; PULSE 86; RESP 18; O2SAT 98
== END 2022-07-17 11:11 | disposition home or self-care (01) ==
PROVIDERS: Emergency Provider Preventive Medicine Aerospace Medicine; PCP Nurse Practitioner Family
DX: M25.552 Pain in left hip (principal); M16.0 Bilateral primary osteoarthritis of hip; I25.10 Atherosclerotic heart disease of native coronary artery without angina pectoris; I48.91 Unspecified atrial fibrillation; I10 Essential (primary) hypertension; E78.5 Hyperlipidemia, unspecified; E03.9 Hypothyroidism, unspecified; E55.9 Vitamin D deficiency, unspecified; R73.03 Prediabetes; M06.9 Rheumatoid arthritis, unspecified; Z95.5 Presence of coronary angioplasty implant and graft; Z79.82 Long term (current) use of aspirin; Z79.01 Long term (current) use of anticoagulants; Z87.891 Personal history of nicotine dependence; M17.12 Unilateral primary osteoarthritis, left knee; M47.816 Spondylosis without myelopathy or radiculopathy, lumbar region
CPT/HCPCS: 72170; 73552; 81003; 99284; A9270

== ENCOUNTER 2022-09-28 15:55 | Outpatient (CLI) | payer MEDICARE, OTHER, SELFPAY ==
--- NOTE | ~2022-09-28 | MR_ITS ---
EXAMINATION: MR lumbar spine wo con DATE: 09/28/2022 16:55 INDICATION: Lumbar spine pain. TECHNIQUE: Magnetic resonance imaging (MRI) of the lumbar spine was performed without intravenous con trast. Sequences included sagittal T2-weighted FSE, sagittal T2-weighted FS FSE, sagittal T1-weighted FSE, and axial T2-weighted FSE. COMPARISON: None FINDINGS: There is 3 mm retrolisthesis of L1 on L2 and 4 mm anterolisthesis of L3 on L4 and L4-L5. Ve rtebral body heights are normal. There is moderately decreased disc height at L1-L2, severely decreas ed disc height at L2-L3, moderately decreased disc height at L3-L4, mildly decreased disc height at L 4-L5, and moderately decreased disc height at L5-S1. There is ligamentum flavum hypertrophy at the di sc levels from L1-L2 through L4-L5. The distal spinal cord signal intensity is normal. The conus medu llaris is at L1. There is a 4.7 cm fusiform aneurysm of infrarenal aorta. The following disc levels a re specifically discussed: L1-L2: The disc is bulging and has an annular fissure. There is severe bilateral facet joint osteoart hritis. There is mild right and moderate left neural foraminal stenosis. There is mild central canal stenosis. L2-L3: The disc is bulging and has an annular fissure. There is severe bilateral facet joint osteoart hritis. There is moderate bilateral neural foraminal stenosis. There is mild central canal stenosis. L3-L4: The disc is bulging and has an annular fissure. There is severe bilateral facet joint osteoart hritis. There is moderate bilateral neural foraminal stenosis. There is severe central canal stenosis . L4-L5: The disc is bulging and has an annular fissure. There is severe bilateral facet joint osteoart hritis. There is moderate bilateral neural foraminal stenosis. There is mild central canal stenosis. There is severe stenosis of left lateral recess. L5-S1: The disc is bulging and has an annular fissure. There is severe bilateral facet joint osteoart hritis. There is mild bilateral neural foraminal stenosis. There is mild central canal stenosis. IMPRESSION: 1. Severe lumbar spondylosis. 2. 4.7 cm fusiform aneurysm of infrarenal aorta. Reviewed, dictated and finalized at location A. [employer]LE[employer]PER[employer]
== END 2022-09-28 15:56 | disposition home or self-care (01) ==
PROVIDERS: PCP Nurse Practitioner Family; Visit Provider Orthopaedic Surgery
DX: M47.896 Other spondylosis, lumbar region (principal); I71.40 Abdominal aortic aneurysm, without rupture, unspecified
CPT/HCPCS: 72148

== ENCOUNTER 2023-06-25 09:27 | Outpatient (CLI) | payer MEDICARE, OTHER, SELFPAY ==
[2023-06-25 18:38] LABS: Basophils Absolute Auto 0.1 K/mm3 (0.0-0.1); Basophils Percent Auto 0.8 % (0.2-1.2); Eosinophils Absolute Auto 0.4 K/mm3 (0-0.3); Eosinophils Percent Auto 5.1 % (0-4.4); Hematocrit 32.7 % (42.0-52.0); Hemoglobin 10.4 g/dL (14.0-18.0); Immature Granulocyte Absolute 0.02 K/mm3 (0.00-0.031); Immature Granulocyte Percent A 0.3 % (0-0.5); Lymphocytes Absolute Auto 1.39 K/mm3 (0.9-3.2); Lymphocytes Percent Auto 18.1 % (18.3-44.2); Mean Corpuscular HGB Conc 31.8 g/dl (32-36); Mean Corpuscular Hemoglobin 31.9 pg (26-34); Mean Corpuscular Volume 100.3 fl (80-100); Mean Platelet Volume 10.4 fl (7.4-10.4); Monocytes Absolute Auto 0.3 K/mm3 (0.1-0.6); Monocytes Percent Auto 4.4 % (2.6-8.5); Neutrophils Absolute Auto 5.5 K/mm3 (1.3-6.7); Neutrophils Percent Auto 71.3 % (45.5-73.1); Platelet Count Result 312 k/mm3 (150-375); Red Blood Count 3.26 M/mm3 (4.6-6.20); Red Cell Distribution Width 14.6 % (11.5-14.5); White Blood Count 7.7 K/mm3 (4.5-10.0)
[2023-06-25 18:44] LABS: Alanine Aminotransferase 25 U/L (6-50); Albumin Level 4.4 g/dL (3.5-5.1); Alkaline Phosphatase 60 U/L (38-126); Anion Gap 11 mmol/L (8-16); Aspartate Amino Transferase 46 U/L (17-59); Bilirubin,Total 0.7 mg/dL (0.2-1.3); Blood Urea Nitrogen 46 mg/dL (9-20); Calcium 9.4 mg/dL (8.4-10.2); Carbon Dioxide 22 mmol/L (22-30); Chloride 98 mmol/L (98-107); Cholesterol 143 mg/dL (0-200); Estimated Glomerular Filt Rate 54; Glucose 85 mg/dL (65-110); HDL Direct 35 mg/dL; Potassium 4.4 mmol/L (3.4-5.0); Sodium 131 mmol/L (137-145); Triglycerides 214 mg/dL (<150)
[2023-06-25 18:55] LABS: LDL Cholesterol Direct 48 mg/dL
[2023-06-25 20:12] LABS: Hemoglobin A1C 5.5 % (<5.7)
[2023-06-27 23:02] LABS: PSA, Free 0.18 ng/mL; PSA, Total 0.5 ng/mL (<=4.0)
[2023-06-28 12:10] LABS: Vitamin D 1,25 (OH)2 Total 39 pg/mL (18-72); Vitamin D2 1,25 (OH)2 <8 pg/mL; Vitamin D3 1,25 (OH)2 39 pg/mL
== END 2023-06-25 09:28 | disposition home or self-care (01) ==
LOC: ANHGOSHLAB 09:29
PROVIDERS: PCP Family Medicine; Visit Provider Nurse Practitioner Family
DX: E10.65 Type 1 diabetes mellitus with hyperglycemia (principal); I10 Essential (primary) hypertension; E55.9 Vitamin D deficiency, unspecified; Z12.5 Encounter for screening for malignant neoplasm of prostate
CPT/HCPCS: 36415; 80053; 80061; 82652; 83036; 84153; 84154; 85025

== ENCOUNTER 2023-07-12 11:09 | Outpatient (CLI) | payer MEDICARE, SELFPAY ==
--- NOTE | ~2023-07-12 | CT_ITS ---
EXAMINATION:CT lung screening DATE: 07/12/2023 11:24 INDICATION: Personal history of nicotine dependence. Current smoker with 90 pack year history. TECHNIQUE: Computed tomography (CT) of the chest was performed without intravenous contrast. Automate d exposure control and iterative reconstruction technique were employed. The dose-length product (DLP ) was 505.00 mGy-cm. COMPARISON: Chest CT 06/15/2022, 10/25/21 FINDINGS: In the lower lobes and lingula, there are groundglass opacities and septal thickening. Ther e is a 4 mm nodule in right lower lobe. There is a 9 mm nodule in left lower lobe. There is a 6 mm no dule in left lower lobe. There is a 6 mm nodule left lower lobe. These nodules are stable from 021, likely benign. There are peripheral airspace opacities in left lower lobe. No pleural effusion. The heart size is normal. There are coronary artery calcifications. There are changes of coronary byp ass grafting. No pericardial effusion. There are gallstones in the gallbladder, which is normal in si ze. There is severe thoracic spondylosis. IMPRESSION: 1. Lung-RADS category 2S: Benign appearance or behavior. Continue annual screening with noncontrast l ow-dose chest CT in 12 months. 2. Worsened disease in the lower lobes and lingula, consistent with pulmonary edema versus pneumonia. Reviewed, dictated and finalized at location A. IMPRESSION: 1. Lung-RADS category 2S: Benign appearance or behavior. Continue annual screen ing with noncontrast low-dose chest CT in 12 months. 2. Worsened disease in the lower lobes and lingula, consistent with pulmonary e carlotta versus pneumonia.
== END 2023-07-12 11:10 | disposition home or self-care (01) ==
LOC: ANHIMG 11:13
PROVIDERS: PCP Family Medicine; Visit Provider Nurse Practitioner Family
DX: Z12.2 Encounter for screening for malignant neoplasm of respiratory organs (principal); Z87.891 Personal history of nicotine dependence
CPT/HCPCS: 71271

== ENCOUNTER 2023-07-26 12:32 | Outpatient (CLI) | payer MEDICARE, SELFPAY ==
[2023-07-26 19:06] LABS: Thyroid Stimulating Hormone 0.814 uIU/mL (0.465-4.680)
== END 2023-07-26 12:33 | disposition home or self-care (01) ==
PROVIDERS: PCP Family Medicine; Visit Provider Nurse Practitioner Family
DX: E10.65 Type 1 diabetes mellitus with hyperglycemia (principal)
CPT/HCPCS: 36415; 84443

== ENCOUNTER 2023-10-04 13:52 | Outpatient (CLI) | payer MEDICARE, SELFPAY ==
--- NOTE | ~2023-10-04 | DEXA_ITS ---
Bone Density Report Name: RAE ALVARADO Age: 72 Sex: Male Ethnicity: White Date of : 1950 Indication: screening for osteoporosis; height loss; rheumatoid arthritis; Referring Provider: SAM ROME Study: Bone densitometry was performed. Exam Date: October 04, 2023 Accession number: [id number] Bone Density: Region BMD T-score Z-score Classification AP Spine(L1-L4) 1.292 1.8 2.8 Normal Femoral Neck (Left) 0.777 -1.1 0.1 Osteopenia Total Hip (Left) 0.891 -0.9 -0.2 Normal Femoral Neck (Right) 0.730 -1.5 -0.2 Osteopenia Total Hip (Right) 0.942 -0.6 0.1 Normal Total Hip Mean 0.917 -0.8 -0.1 Normal World Health Organization criteria for BMD impression classify patients as: Normal (T-score at or above -1.0), Osteopenia (T-score between -1.0 and -2.5), or Osteoporosis (T-score at or below -2.5). 10-year Fracture Risk(1): Major Osteoporotic Fracture 7.2% Hip Fracture 1.6% Reported Risk Factors: [place] (), Neck BMD=0.730, BMI=41.3, rheumatoid arthritis (1) FRAX(R) Version 3.08. Fracture probability calculated for an untreated patient. Fracture probability may be lower if the patient has received treatment. Previous Exams: Region Exam Age BMD T-score BMD Change BMD Change Date g/cm2 vs Baseline vs Previous AP Spine (L1-L4) 10/04/2023 72 1.292 1.8 0.026 (2.1%)* 0.026 (2.1%)* 12/09/2018 67 1.266 1.6 Total Hip(Left) 10/04/2023 72 0.891 -0.9 -0.164 (-15.5% -0.164 (-15.5% 12/09/2018 67 1.055 0.1 Total Hip(Right) 10/04/2023 72 0.942 -0.6 -0.061 (-6.1%) -0.061 (-6.1%) 12/09/2018 67 1.003 -0.2 *Denotes significance at 95% confidence level, LSC for AP Spine = 0.022 g/cm2, LSC for Total Hip = 0.027 g/cm2 Clinical Information Provided by Patient: Has rheumatoid arthritis Has used the following medications: Vitamin D Patient maximum height was 66 No regular weight bearing exercise Does not regularly consume dairy products Drinks caffeinated beverages Impression: The patient has low bone mass, based on the Right Femoral Neck T-score. The patient has an estimated ten-year risk of hip fracture of 1.6% and an estimated ten-year risk of major fracture of 7.2%, based on the WHO FRAX algorithm. The BMD for the Total Hip(Left) decreased, changing by -15.5% since the last DXA exam. The BMD for the Total Hip(Right) decreased, changing by -6.1% since the last DXA exam. Discussion: BONE DENS
== END 2023-10-04 13:53 | disposition home or self-care (01) ==
LOC: ANHIMG 13:53
PROVIDERS: PCP Family Medicine; Visit Provider Nurse Practitioner Family
DX: M81.0 Age-related osteoporosis without current pathological fracture (principal); M85.852 Other specified disorders of bone density and structure, left thigh; M85.851 Other specified disorders of bone density and structure, right thigh
CPT/HCPCS: 77080

== ENCOUNTER 2023-11-12 13:00 | Outpatient (CLI) | payer MEDICARE, SELFPAY ==
--- NOTE | ~2023-11-12 | CT_ITS ---
Noncontrast CT scan of the right shoulder CLINICAL HISTORY: Preoperative planning TECHNIQUE: Axial noncontrast imaging of the right shoulder was performed. Sagittal and coronal reform atted images were constructed. Dose reduction technique was used on this scan by utilizing automated exposure control and iterative reconstruction technique. The dose-length product (DLP) was 483.93 mGy -cm. Findings: No acute fracture or dislocation is seen. There is minimal degenerative changes AC joint. T here is severe degenerative change of the glenohumeral joint, with marked joint space narrowing, subc hondral cystic change in the glenoid and humeral head, and extensive osteophyte formation. There is e xtensive debris and/or small loose bodies in the glenohumeral joint. There is suggestion of chronic i nferior glenoid fracture, nonunited. Small joint effusion present. Visualized musculature is grossly unremarkable. No soft tissue mass evident. IMPRESSION: Severe glenohumeral joint osteoarthritis, as detailed above, with intra-articular debris and/or loose bodies. Possible chronic, nonunited fracture of the inferior glenoid. Reviewed, dictated and finalized at location M. IMILE OPERATOR IMPRESSION: Severe glenohumeral joint osteoarthritis, as detailed above, with intra-articul ar debris and/or loose bodies. Possible chronic, nonunited fracture of the inferior glenoid.
== END 2023-11-12 13:01 | disposition home or self-care (01) ==
PROVIDERS: PCP Family Medicine; Visit Provider Orthopaedic Surgery
DX: M19.011 Primary osteoarthritis, right shoulder (principal)
CPT/HCPCS: 73200

== ENCOUNTER 2024-01-10 11:46 | Outpatient (CLI) | payer MEDICARE, OTHER, SELFPAY ==
[2024-01-10 13:08] LABS: Basophils Absolute Auto 0.1 K/mm3 (0.0-0.1); Eosinophils Absolute Auto 0.4 K/mm3 (0-0.3); Eosinophils Percent Auto 3.9 % (0-4.4); Hematocrit 36.8 % (42.0-52.0); Hemoglobin 11.8 g/dL (14.0-18.0); Immature Granulocyte Absolute 0.02 K/mm3 (0.00-0.031); Immature Granulocyte Percent A 0.2 % (0-0.5); Lymphocytes Absolute Auto 2.23 K/mm3 (0.9-3.2); Lymphocytes Percent Auto 23.3 % (18.3-44.2); Mean Corpuscular HGB Conc 32.1 g/dl (32-36); Mean Corpuscular Hemoglobin 29.4 pg (26-34); Mean Corpuscular Volume 91.5 fl (80-100); Mean Platelet Volume 10.1 fl (7.4-10.4); Monocytes Absolute Auto 0.8 K/mm3 (0.1-0.6); Monocytes Percent Auto 8.8 % (2.6-8.5); Neutrophils Percent Auto 62.8 % (45.5-73.1); Platelet Count Result 265 k/mm3 (150-375); Red Blood Count 4.02 M/mm3 (4.6-6.20); Red Cell Distribution Width 14.9 % (11.5-14.5); White Blood Count 9.6 K/mm3 (4.5-10.0)
[2024-01-10 13:20] LABS: Anion Gap 7 mmol/L (8-16); Blood Urea Nitrogen 36 mg/dL (9-20); Calcium 9.6 mg/dL (8.4-10.2); Carbon Dioxide 27 mmol/L (22-30); Chloride 100 mmol/L (98-107); Estimated Glomerular Filt Rate > 60; Glucose 91 mg/dL (65-110); Potassium 4.5 mmol/L (3.4-5.0); Sodium 134 mmol/L (137-145)
[2024-01-10 14:59] LABS: MRSA (PCR) NOT DETECTED (NOT DETECTE)
== END 2024-01-10 11:47 | disposition home or self-care (01) ==
LOC: ANHSURGERY 11:51
PROVIDERS: Anesthesiology; PCP Family Medicine; Visit Provider Orthopaedic Surgery
DX: M19.011 Primary osteoarthritis, right shoulder (principal); Z51.81 Encounter for therapeutic drug level monitoring; Z01.818 Encounter for other preprocedural examination
CPT/HCPCS: 36415; 80048; 85025; 87641

== ENCOUNTER → 2024-01-30 01:48 | Day surgery (SDC) | payer MEDICARE, SELFPAY ==
[2024-01-10 12:07] VITALS: BMI 43.2
[2024-01-10 12:20] VITALS: BP 151/68; PULSE 59; RESP 16; TEMP 37.3; O2SAT 96
--- NOTE | 2024-01-10 12:36 | PC.NURSE ---
Report to the Outpatient Waiting Room, entrance under the green pavilion located off [facility], at time __10:00AM on date __01/30/24 . Planned Procedure Time: __12:00PM . Time changes happen often and if your time is changed the preop area will call you the afternoon before. - You and your visitor will be asked to self-screen and do not enter if you have any COVID symptoms. - A mask is optional within the hospital at this time. Patients may have clear liquids (water, carbonated beverages, clear teas, apple juice) until 3 hours prior to surgery with a maximum of 20 ounces. - No food from midnight until time of surgery. Take the following medications with a SIP of water the morning of surgery: ___LEVOTHYROXINE, METOPROLOL DO NOT STOP ANY OF YOUR OTHER PRESCRIPTION MEDICATIONS PRIOR TO SURGERY ?EXCEPT THE FOLLOWING Medications to discontinue per physician ___HOLD ASPIRIN, ALEVE & VITAMINS/SUPPLEMENTS 7 DAYS PRE-OP PER DR CAMPOS Date to take last dose 01/22/24 Please no make-up, nail luxembourgish, hairspray, perfume, deodorant, or body powder the day of surgery. No jewelry (including any body piercings) or valuables the day of surgery, leave them at home. Please take a shower or bath the night before, or the morning of, surgery with an antibacterial soap. Wear comfortable, loose fitting clothing. - Jewelry must be removed prior to entering the operating room. Rings and piercings that are not removed may be cut off. - The hospital will not accept responsibility for valuables. - Please leave all valuables, including medications, at home the day of surgery. If you are going home after surgery, a licensed xm1 tank driver must drive you home. - NO public transportation without another adult if you receive anesthesia. - We recommend that an adult stay with you for 24 hours following discharge. - We also recommend that you do not drive, make important decision, drink alcoholic beverages, or take any drugs that were not prescribed by your health care provider for at least 24 hours after your discharge time. Follow any additional instructions given to you from your surgeon. If you or anyone in your household have experienced Covid symptoms in the past week, please notify your surgeon or the nurse liaison at the phone number below for possible testing. Telephone instructions given to ___PATIENT & DAUGHTER and asked if any additional questions and then verbalized understanding. Patient advised to call surgeon office or pre surgery nurse liaison [phone] if any additional questions.
--- NOTE | 2024-01-29 13:05 | WPDANESEPPF ---
Anes - Initial Pre Proc Eval Procedure: Operation Date: 01/30/24 11:00 Proposed Procedures p Right Reverse Total Shoulder Arthroplasty - Shlomo Soto MD Date/Time: 01/29/24 13:05 Surgeon: Shlomo Soto MD Pre Op Diagnosis: Prim O A Right Shoulder Patient Data Age: 73 Gender: M Height: 1.61 m Weight: 112.6 kg Last Vital Signs Temp 37.3 C 01/10/24 12:20 Pulse 59 L 01/10/24 12:20 Resp 16 01/10/24 12:20 BP 151/68 H 01/10/24 12:20 Pulse Ox 96 01/10/24 12:20 O2 Del Method Room Air 01/10/24 12:20 Allergies Allergy/AdvReac Type Severity Reaction Status Date / Time No Known Allergies Allergy Verified 01/28/24 08:32 Home Medications Medication Instructions Recorded Confirmed Type folic acid 1 mg tablet 1 mg PO DAILY 10/26/19 01/28/24 History potassium chloride 10 mEq 10 meq PO BID 06/02/21 01/28/24 History tablet,extended release (Klor-Con) furosemide 40 mg tablet 40 mg PO BID #180 tabs 08/31/21 01/28/24 Rx cholecalciferol (vitamin D3) 25 25 mcg PO DAILY 10/27/21 01/28/24 History mcg (1,000 unit) capsule rosuvastatin 10 mg tablet 10 mg PO DAILY 10/27/21 01/28/24 History aspirin 81 mg capsule 81 mg PO DAILY 06/08/22 01/28/24 History metoprolol tartrate 50 mg tablet 50 mg PO BID 06/25/23 01/28/24 History acetaminophen 500 mg tablet 1,000 mg PO Q6H PRN Pain 01/10/24 01/28/24 History (Tylenol Extra Strength) levothyroxine 200 mcg tablet 200 mcg PO QAM 01/10/24 01/28/24 History naproxen sodium 220 mg capsule 440 mg PO Q12H PRN Pain 01/10/24 01/28/24 History (Aleve) rivaroxaban 20 mg tablet (Xarelto) 20 mg PO DAILY 01/28/24 01/28/24 History aspirin 81 mg tablet,delayed 81 mg PO BID 14 days #28 tabs 01/30/24 Rx release oxycodone-acetaminophen 5 mg-325 1 - 2 tablet PO Q4-6H PRN pain #30 01/30/24 Rx mg tablet tabs Patient hx anesthesia problems: none Family hx anesthesia problems: none Results Review: All pre-operative results and documents have been reviewed as part of the pre-operative evaluation. [facility] Past Medical History Medical History (Updated 01/30/24 @ 09:52 by ALEX Beltran) Atrial fibrillation CAD (coronary artery disease) CHF (congestive heart failure) EF 65-70% DJD of right shoulder Essential (primary) hypertension History of bruising easily History of stress test (~1998) Hyperlipidemia Hypothyroid Lumbar spondylosis Osteoarthritis Prediabetes Rheumatoid arthritis Vitamin D deficiency Surgical History Surgical History (Updated 01/30/24 @ 09:52 by ALEX Beltran) History of heart bypass surgery (~11/2006) x2 2006 Hx of heart artery stent 1998 Family History Family History Father Family history of thyroid disease Family history of lung cancer Grandparent Carcinoma of colon Family history of heart disease in male family member before age 55 Mother Family history of primary malignant neoplasm of liver Other Family history of malignant neoplasm Social History Social History Smoking packs per day: 3 Smoking cigarettes per day: 60.0 Years smoked: 30 Smoking pack-years: 90.00 Smoking status: Former smoker Tobacco type: cigarettes Smoking end date: 05/25/99 Alcohol intake: former Substance use: never Lack of Transportation: No Lack of Food: Never True Current Housing: I Have Housing Concerned About Future Housing: No Difficulty Paying Gas/Electric Bills: No Difficulty Paying for Meds: No Currently Unemployed: No Education: Trade/Vocational Certificate Difficulty w/ Childcare or Family Care: No Living arrangements: with family Additional living arrangements comments: Occupation/Education: retired Gender identity (if verbalized by the patient): Male Sexual Orientation (if Verbalized by the Patient): Straight or Heterosexual Spi
--- NOTE | 2024-01-30 07:13 | WPDHPUPDATE1 ---
History and Physical Update Update Date/Time: 01/30/24 07:13 History and Physical has been reviewed, including an updated exam of the patient. There are NO changes in the patient's condition. Risks, benefits, and alternatives have been discussed and questions answered. Patient agrees to proceed with procedure.
[2024-01-30 09:05] VITALS: BP 142/61; PULSE 31; RESP 18; TEMP 36.4; O2SAT 100
--- NOTE | 2024-01-30 09:20 | ECG_ITS ---
Measurements Intervals [place] Rate: 43 P: 0 OH: 180 QRS: -21 QRSD: 113 T: 9 QT: 432 QTc: 369 Interpretive Statements SINUS BRADYCARDIA INTRAVENTRICULAR CONDUCTION DELAY DELAYED PRECORDIAL R/S TRANSITION LEFT VENTRICULAR HYPERTROPHY WITH ST-T CHANGE ABNORMAL ECG COMPARED TO ECG 10/26/2021 01:26:40 NO SIGNIFICANT CHANGES Electronically Signed On 01-30-2024 9:42:58 MEDICAL EXAMINER by Alcides Gant D.O.
[2024-01-30] MEDS: LACTATED RINGERS 1,000 ML 30 ML IV CONT (10:10)
[2024-01-30] MEDS: ACETAMINOPHEN 500 MG TABLET 1000 MG PO (10:16)
[2024-01-30] MEDS: TRANEXAMIC ACID 1,000MG/ISO100 1,000 MG/100 ML BAG 200 MG IVPB (10:16)
--- NOTE | 2024-01-30 11:00 | WPDANESPN ---
Anes - Prog Note Post-Op Date/Time: 01/30/24 11:00 Vital Signs: Last Vital Signs Temp 36.4 C 01/30/24 09:05 Pulse 31 L 01/30/24 09:05 Resp 18 01/30/24 09:05 BP 142/61 H 01/30/24 09:05 Pulse Ox 100 01/30/24 09:05 O2 Del Method Room Air 01/30/24 09:05 Pain Score (VAS): 0 Other Findings: When hooking patient up to vitals monitor to do nerve block, it was noted that HR was occasionally dipping into 30's. We added a 3 lead monitor and this was correlating even going as low as 29. Patient was asymptomatic. Patient was given Robinul 0.4 mg and atropine 0.2 mg in incremental doses. HR was staying in the low 40's and 50's however would still occasionally dip into the high 30's. Due to the beach chair position for surgery, the nature of a total shoulder surgery, as well as all of his other risk factors (hx CABG, AAA, stents, Morbid Obesity), the decision was made to cancel the surgery. We felt that if any of the anesthetic medications lowered his heart rate anymore, we would have no options left than to temporarily pace since he was not very responsive to our IV medications most likely due to his metoprolol this am. We felt this was an unnecessary risk for an elective surgery and that coming back after an adjustment to his metoprolol dose or even holding metoprolol morning of would be the safest option.
== END | disposition home or self-care (01) ==
PROVIDERS: PCP Family Medicine; Visit Provider Orthopaedic Surgery
PROC: (CPT 23472; principal; 2024-01-30 11:00)
DX: M19.011 Primary osteoarthritis, right shoulder (principal); R00.1 Bradycardia, unspecified; Z53.09 Procedure and treatment not carried out because of other contraindication; I11.0 Hypertensive heart disease with heart failure; I50.9 Heart failure, unspecified; E78.5 Hyperlipidemia, unspecified; E03.9 Hypothyroidism, unspecified; R73.03 Prediabetes; E55.9 Vitamin D deficiency, unspecified; E66.01 Morbid (severe) obesity due to excess calories; Z68.41 Body mass index [BMI] 40.0-44.9, adult; Z79.82 Long term (current) use of aspirin; Z79.01 Long term (current) use of anticoagulants; Z79.891 Long term (current) use of opiate analgesic; Z95.1 Presence of aortocoronary bypass graft; Z95.5 Presence of coronary angioplasty implant and graft; Z87.891 Personal history of nicotine dependence; Z86.79 Personal history of other diseases of the circulatory system; Z80.0 Family history of malignant neoplasm of digestive organs; Z80.1 Family history of malignant neoplasm of trachea, bronchus and lung; Z82.49 Family history of ischemic heart disease and other diseases of the circulatory system
CPT/HCPCS: 36415; 86850; 86900; 86901; 93005; 99215; A9270; G0463; J0171; J1885; J2270; J2795; J3010; J3370; J7120

== ENCOUNTER 2024-04-03 11:31 | Emergency (ER) | payer MEDICARE, SELFPAY ==
--- NOTE | ~2024-04-03 | XR_ITS ---
EXAMINATION: 1. XR scapula LT 2. XR shoulder LT min 2V DATE: 04/03/2024 12:30 INDICATION: Left shoulder pain. TECHNIQUE: 2 views of left scapula and 4 views of left shoulder were obtained. COMPARISON: Left shoulder radiographs 08/22/2021 FINDINGS: LEFT SHOULDER: There is superior subluxation of the humeral head with narrowing of the subacromial sp karla and remodeling of the undersurface of the acromion, consistent with chronic rotator cuff tear wit h cuff arthropathy. No fracture. There is severe osteoarthritis of glenohumeral joint and acromioclav icular joint. There is bone volume loss of the glenoid. There are loose bodies in the glenohumeral tito int. Median sternotomy wires and mediastinal surgical clips are seen, likely from prior coronary ambrocio ry bypass grafting. LEFT SCAPULA: Again seen are the left shoulder findings. There is no fracture. IMPRESSION: 1. Severe polyarticular osteoarthritis. 2. Chronic left rotator cuff tear with cuff arthropathy. 3. Left glenohumeral joint loose bodies. Reviewed, dictated and finalized at location A. IMPRESSION: 1. Severe polyarticular osteoarthritis. 2. Chronic left rotator cuff tear with cuff arthropathy. 3. Left glenohumeral joint loose bodies.
[2024-04-03 11:32] VITALS: BP 167/59; PULSE 61; RESP 16; TEMP 36.5; O2SAT 100
[2024-04-03] MEDS: KETOROLAC 30 MG/ML VIAL (*BKC) IM (12:36)
--- NOTE | 2024-04-03 13:25 | ED.UPPEXIN ---
HPI - Extremity Injury (Upper) General Chief Complaint: Extremity Injury, Upper Stated Complaint: left shoulder pain Time Seen by Provider: 04/03/24 12:03 History of Present Illness HPI narrative: Patient is a 73-year-old male who presents ER left shoulder pain. He had been taking up the trash and through his trash. Short while area he began to have sharp pain left shoulder. He now has limited range of motion with both internal and external rotation as well as abduction. No numbness or tingling. He has lidocaine patch over his scapula where he is experiencing the majority of his pain. Injury occurred this morning. Related Data Home Medications Medication Instructions Recorded Confirmed folic acid 1 mg tablet 1 mg PO DAILY 10/26/19 01/30/24 potassium chloride 10 mEq 10 meq PO BID 06/02/21 01/30/24 tablet,extended release (Klor-Con) cholecalciferol (vitamin D3) 25 25 mcg PO DAILY 10/27/21 01/30/24 mcg (1,000 unit) capsule rosuvastatin 10 mg tablet 10 mg PO DAILY 10/27/21 01/30/24 aspirin 81 mg capsule 81 mg PO DAILY 06/08/22 01/30/24 metoprolol tartrate 50 mg tablet 50 mg PO BID 06/25/23 01/30/24 acetaminophen 500 mg tablet 1,000 mg PO Q6H PRN Pain 01/10/24 01/30/24 (Tylenol Extra Strength) levothyroxine 200 mcg tablet 200 mcg PO QAM 01/10/24 01/30/24 naproxen sodium 220 mg capsule 440 mg PO Q12H PRN Pain 01/10/24 01/30/24 (Aleve) rivaroxaban 20 mg tablet (Xarelto) 20 mg PO DAILY 01/28/24 01/28/24 clopidogrel 75 mg tablet mg 01/30/24 Allergies Allergy/AdvReac Type Severity Reaction Status Date / Time No Known Allergies Allergy Verified 04/03/24 11:36 Review of Systems Constitutional: Constitutional: Reports no additional constitutional complaints Cardiovascular: Cardiovascular: Reports no additional cardiovascular complaints Respiratory: Respiratory: Reports no additional respiratory complaints Musculoskeletal: Musculoskeletal: Reports arthralgias, Denies joint swelling and Reports muscle cramps Neurologic: Reports system reviewed and no additional complaints, except as documented PMFSH Past Medical History Medical History (Updated 04/03/24 @ 13:26 by Chun Holloway MD) Atrial fibrillation CAD (coronary artery disease) CHF (congestive heart failure) EF 65-70% DJD of right shoulder Essential (primary) hypertension History of bruising easily History of stress test (~1998) Hyperlipidemia Hypothyroid Lumbar spondylosis Osteoarthritis Prediabetes Rheumatoid arthritis Vitamin D deficiency Surgical History Surgical History (Updated 02/18/24 @ 14:44 by ALEX Beltran) History of heart bypass surgery (~11/2006) x2 2007 Hx of heart artery stent 11/2018, 1998 Family History Family History Father Family history of thyroid disease Family history of lung cancer Grandparent Carcinoma of colon Family history of heart disease in male family member before age 55 Mother Family history of primary malignant neoplasm of liver Other Family history of malignant neoplasm Social History Social History Smoking packs per day: 3 Smoking cigarettes per day: 60.0 Years smoked: 30 Smoking pack-years: 90.00 Smoking status: Former smoker Tobacco type: cigarettes Smoking end date: 05/25/99 Alcohol intake: former Substance use: never Lack of Transportation: No Lack of Food: Never True Current Housing: I Have Housing Concerned About Future Housing: No Difficulty Paying Gas/Electric Bills: No Difficulty Paying for Meds: No Currently Unemployed: No Education: Trade/Vocational Certificate Difficulty w/ Childcare or Family Care: No Living arrangements: with family Additional living arrangements comments: Occupation/Education: retired Gender identity (if verbalized by the patient): Male Sexual Orientation (if Verbalized by the Patie
[2024-04-03 15:03] VITALS: BP 147/82; PULSE 87; RESP 19; TEMP 36.6; O2SAT 100
== END 2024-04-03 13:45 | disposition home or self-care (01) ==
PROVIDERS: Emergency Provider Emergency Medicine; PCP Family Medicine
DX: S46.912A Strain of unspecified muscle, fascia and tendon at shoulder and upper arm level, left arm, initial encounter (principal); I48.91 Unspecified atrial fibrillation; I25.10 Atherosclerotic heart disease of native coronary artery without angina pectoris; I50.9 Heart failure, unspecified; I11.0 Hypertensive heart disease with heart failure; E78.5 Hyperlipidemia, unspecified; E03.9 Hypothyroidism, unspecified; E55.9 Vitamin D deficiency, unspecified; M19.012 Primary osteoarthritis, left shoulder; M47.816 Spondylosis without myelopathy or radiculopathy, lumbar region; M06.9 Rheumatoid arthritis, unspecified; Z95.5 Presence of coronary angioplasty implant and graft; Z95.1 Presence of aortocoronary bypass graft; Z87.891 Personal history of nicotine dependence; Z79.01 Long term (current) use of anticoagulants; Z79.82 Long term (current) use of aspirin; M75.102 Unspecified rotator cuff tear or rupture of left shoulder, not specified as traumatic; X50.9XXA Other and unspecified overexertion or strenuous movements or postures, initial encounter
CPT/HCPCS: 73010; 73030; 96372; 99283; A4565; J1885

== ENCOUNTER 2024-06-25 10:22 | Outpatient (CLI) | payer MEDICARE, OTHER, SELFPAY ==
[2024-06-25 19:39] LABS: Alanine Aminotransferase 18 U/L (6-50); Albumin Level 4.5 g/dL (3.5-5.1); Alkaline Phosphatase 70 U/L (38-126); Anion Gap 11 mmol/L (4-12); Aspartate Amino Transferase 43 U/L (17-59); Basophils Absolute Auto 0.1 K/mm3 (0.0-0.1); Basophils Percent Auto 1.2 % (0.2-1.2); Bilirubin,Total 0.6 mg/dL (0.2-1.3); Blood Urea Nitrogen 42 mg/dL (9-20); Calcium 9.2 mg/dL (8.4-10.2); Carbon Dioxide 26 mmol/L (22-30); Chloride 98 mmol/L (98-107); Cholesterol 208 mg/dL (0-200); Eosinophils Absolute Auto 0.3 K/mm3 (0-0.3); Eosinophils Percent Auto 3.4 % (0-4.4); Estimated Glomerular Filt Rate 60; Glucose 83 mg/dL (65-110); HDL Direct 30 mg/dL; Hematocrit 39.2 % (42.0-52.0); Hemoglobin 12.7 g/dL (14.0-18.0); Immature Granulocyte Absolute 0.03 K/mm3 (0.00-0.031); Immature Granulocyte Percent A 0.4 % (0-0.5); Lymphocytes Absolute Auto 1.94 K/mm3 (0.9-3.2); Magnesium 2.3 mg/dL (1.6-2.3); Mean Corpuscular HGB Conc 32.4 g/dl (32-36); Mean Corpuscular Hemoglobin 30.5 pg (26-34); Mean Corpuscular Volume 94.2 fl (80-100); Mean Platelet Volume 10.9 fl (7.4-10.4); Monocytes Absolute Auto 0.7 K/mm3 (0.1-0.6); Monocytes Percent Auto 8.1 % (2.6-8.5); Neutrophils Absolute Auto 5.4 K/mm3 (1.3-6.7); Neutrophils Percent Auto 63.9 % (45.5-73.1); Platelet Count Result 289 k/mm3 (150-375); Potassium 4.5 mmol/L (3.4-5.0); Red Blood Count 4.16 M/mm3 (4.6-6.20); Sodium 135 mmol/L (137-145); Triglycerides 280 mg/dL (<150); White Blood Count 8.4 K/mm3 (4.5-10.0)
[2024-06-25 19:55] LABS: LDL Cholesterol Direct 108 mg/dL
[2024-06-25 20:03] LABS: Prostate Specific Antigen 0.6 ng/mL (< OR = 4.0)
[2024-06-25 20:07] LABS: Hemoglobin A1C 5.4 % (<5.7)
[2024-06-26 23:29] LABS: Vitamin D 25 Hydroxy 61.5 ng/mL
== END 2024-06-25 10:23 | disposition home or self-care (01) ==
PROVIDERS: PCP Family Medicine; Visit Provider Family Medicine
DX: E03.9 Hypothyroidism, unspecified (principal); Z00.00 Encounter for general adult medical examination without abnormal findings; I10 Essential (primary) hypertension; I48.91 Unspecified atrial fibrillation; I50.9 Heart failure, unspecified; M06.9 Rheumatoid arthritis, unspecified; R73.03 Prediabetes; E78.5 Hyperlipidemia, unspecified; Z12.5 Encounter for screening for malignant neoplasm of prostate; E53.8 Deficiency of other specified B group vitamins; E55.9 Vitamin D deficiency, unspecified
CPT/HCPCS: 36415; 80053; 80061; 82306; 82607; 83036; 83735; 84153; 84443; 85025; G0103

== ENCOUNTER 2024-07-10 08:04 | Outpatient (CLI) | payer MEDICARE, OTHER, SELFPAY ==
--- NOTE | ~2024-07-10 | US_ITS ---
EXAMINATION: US aorta DATE: 07/10/2024 08:40 CDT INDICATION: Fusiform aneurysm seen on MRI. TECHNIQUE: Grayscale, color Doppler, and pulsed Doppler images of the aorta and common iliac arteries were obtained. COMPARISON: None. FINDINGS: Study limited due to patient body habitus. The proximal aorta is not visualized due to patient body h abitus and bowel gas. There is an infrarenal abdominal aortic aneurysm measuring 4.7 cm greatest sagi ttal dimension. Distal abdominal aorta measures 2.5 cm greatest sagittal dimension. The iliac arterie s are not visualized. IMPRESSION: 1. Infrarenal abdominal aortic aneurysm measuring 4.7 cm. Limited study due to patient body habitus a nd bowel gas. Reviewed, dictated and finalized at location B. IMPRESSION: 1. Infrarenal abdominal aortic aneurysm measuring 4.7 cm. Limited study due to patient body habitus and bowel gas.
== END 2024-07-10 08:05 | disposition home or self-care (01) ==
PROVIDERS: PCP Family Medicine; Visit Provider Family Medicine
DX: I71.40 Abdominal aortic aneurysm, without rupture, unspecified (principal)
CPT/HCPCS: 76775

== ENCOUNTER 2025-01-07 15:45 | Outpatient (CLI) | payer MEDICARE, OTHER, SELFPAY ==
--- OUTSIDE RECORDS SUMMARY | 2025-01-07 15:50 | XMS_ITS | Clinical Summary ---
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 Gender Identity Not on file Sexual Orientation Not on file Plan of Treatment Health Maintenance Due Date Last Done Comments DTAP/TDAP/TD VACCINES (1 - Tdap) 1970 COLORECTAL SCREENING 1996 Colorectal Cancer Screening 1996 FIT-DNA Q 3 years 1996 FIT/FOBT Q 1 year 1996 Flex Sig/CT Colonography Q 5 years 1996 PNEUMOCOCCAL VACCINE 65+ YEARS (1 of 1 - PCV) 12/14/19 02 ZOSTER VACCINE (1 of 2) 2001 INFLUENZA VACCINE (#1) 2024 RSV VACCINE (60+ or ) (1 - 1-dose 75+ series) 2026 Care Teams Quantometer Operator Relationship Specialty Start Date End Date Danish Ramírez MD [address] [place] [address] PCP - General 12/10/06
--- OUTSIDE RECORDS SUMMARY | 2025-01-07 15:50 | XMS_ITS | Referral Summary ---
Author Organization [facility] [place] [address] [facility] [address] Address [address] [place] [address] Care Team Providers Care Sliver Cutter Name Role Phone Sandy Bragg MD Unavailable [phone] Walker Breen MD Primary Care Provider Encounters Date Type Department Care Team Description 12/29/2024 5:54 AM EASTERN PHILOSOPHY PROFESSOR - 12/30/2024 2:00 PM EASTERN PHILOSOPHY PROFESSOR Hospital Encounter [address] [address] Moreno Lam MD Coronary artery disease involving [place] coronary artery of [place] heart without angina pectoris; Chest pain, unspecified type Discharge Disposition: Discharge to home or self care 12/29/2024 8:00 AM EASTERN PHILOSOPHY PROFESSOR - 12/29/2024 9:30 AM EASTERN PHILOSOPHY PROFESSOR Surgery [facility] [address] [place] [id number] Moreno Lam MD LEFT HEART CATHETERIZATION WITH CORONARY ANGIOGRAPHY GRAFT AND WITH OR WITHOUT LEFT VENTRICULOGRAM [id number] 12/29/2024 8:27 AM EASTERN PHILOSOPHY PROFESSOR Anesthesia Event [facility] [address] [place] [id number] Hermilo Alanis MD Eldin, Ali S., MD 2024 Telephone [facility] [address] [facility] 162 [address] [place] [address] Moreno Lam MD 2024 8:30 AM EASTERN PHILOSOPHY PROFESSOR Office Visit [facility] [address] [facility] [address] [place] [phone] Moreno Lam MD Paroxysmal atrial fibrillation (CMS/HCC) (HCC) (Primary Dx); Essential hypertension; Coronary artery disease involving [place] coronary artery of [place] heart without angina pectoris; Infrarenal abdominal aortic aneurysm (AAA) without rupture (HCC); Localized edema 11/16/2024 10:15 AM EASTERN PHILOSOPHY PROFESSOR Ancillary Procedure [facility] Cardiology [address] [place] [address] [address] [place] [phone] Coronary artery disease involving [place] coronary artery of [place] heart without angina pectoris; Paroxysmal atrial fibrillation (CMS/HCC) (HCC); Essential hypertension 11/09/2024 9:00 AM EASTERN PHILOSOPHY PROFESSOR Office Visit [facility] [address] [place] [address] [address] [place] [phone] Moreno Lam MD Coronary artery disease involving [place] coronary artery of [place] heart without angina pectoris (Primary Dx); Paroxysmal atrial fibrillation (CMS/HCC) (HCC); Essential hypertension; Localized edema; Infrarenal abdominal aortic aneurysm (AAA) without rupture (HCC); Severe obesity (HCC) from Last 3 Months Allergies No known active allergies Medications rivaroxaban (XARELTO) 20 mg tablet Take 1 tablet (20 mg total) by mouth daily Active aspirin 81 mg enteric coated tablet Take 1 tablet (81 mg total) by mouth daily Active levothyroxine (SYNTHROID) 200 mcg tablet Take 1 tablet (200 mcg total) by mouth daily 08/31/20 21 Active rosuvastatin (CRESTOR) 20 mg tabletIndicatio ns:Coronary artery disease involving [place] coronary artery of [place] heart without angina pectoris Take 1 tablet (20 mg total) by mouth daily 90 tablet 2 10/03/20 23 Active Klor-Con M10 10 mEq CR tablet TAKE 1 TABLET BY MOUTH TWICE A DAY 180 tablet 3 03/25/20 24 Active Additional Information Patient taking differently: 10 mEq oral 2 times daily, Reported on 12/29/2024 metoprolol tartrate (LOPRESSOR) 50 mg immediate release tabletIndicatio ns:Paroxysmal atrial fibrillation (CMS/HCC) (HCC),Essential hypertension TAKE 1 TABLET BY MOUTH TWICE A DAY 180 tablet 3 12/09/19 25 Active HYDROcodone-karla taminophen (NORCO) 5-325 mg per tablet Take 1 tablet by mouth 2 (two) times a day 11/26/19 25 Active furosemide (LASIX) 40 mg tablet TAKE 1 TABLET BY MOUTH TWICE A DAY 180 tablet 3 12/21/19 25 Active Additional Information Patient taking differently: 40 mg oral 2 times daily, Reported on 12/29/2024 clopidogreL (PLAVIX) 75 mg tablet Take 1 tablet (75 mg total) by mouth daily 30 tablet 12/30/19 25 Active methotrexate 2.5 mg tabletIndicatio ns:take on Fridays Take 3 tablets (7.5 mg total) by mouth once a week 2024 Discontinued(T herapy completed) meloxicam (MOBIC) 15 mg tablet Take 15 mg by mouth daily 2024 Discontinued(T herapy completed) leflunomide (ARAVA) 20 mg tabletIndicatio ns:Rheumatoid Arthritis Take 20 mg by mouth daily 2024 Discontinued(T herapy completed) predniSONE (DELTASONE) 5 mg tablet 1 mg/kg 08/22/20 21 2024 Discontinued(T herapy completed) alendronate (FOSAMAX) 70 mg tablet TAKE 1 TABLET BY MOUTH ONCE WEEKLY 06/12/20 22 2024 Discontinued(T herapy completed) adalimumab (Humira,CF, Pen) 80 mg/0.8 mL pen injector kit Inject 0.8 mL (80 mg total) under the skin every 14 (fourteen) days 2024 Discontinued(T herapy completed) metoprolol tartrate (LOPRESSOR) 50 mg immediate release tabletIndicatio ns:Paroxysmal atrial fibrillation (CMS/HCC) (HCC),Essential hypertension Take 1 tablet (50 mg total) by mouth 2 (two) times a day 180 tablet 09/11/20 24 2024 Discontinued furosemide (LASIX) 40 mg tablet TAKE 1 TABLET BY MOUTH TWICE A DAY 180 tablet 09/21/20 24 2024 Discontinued Active Problems Problem Noted Date Diagnosed Date S/P cardiac cath 12/29/2024 Chest pain 2024 Severe obesity 11/09/2024 Aneurysm of infrarenal abdominal aorta 1 Paroxysmal atrial fibrillation (CMS/HCC) 018 Essential hypertension 07/01/2018 Assessment & Plan (08/17/2020 9:14 AM CDT): Per patient blood pressure is well controlled continue current medical therapy and exercise. Assessment & Plan (05/18/2020 12:50 PM CDT): Impression: Stable hypertension. Plan: Continue current antihypertensive regimen as directed by PCP. Assessment & Plan (08/18/2018 2:50 PM CDT): Blood pressure is controlled. However I will switch patient from Norvasc to losartan given bilateral lower limb edema. Assessment & Plan (07/01/2018 12:08 PM CDT): Blood pressure is well controlled. Continue current treatment Coronary artery disease 07/01/2018 Assessment & Plan (08/18/2018 2:52 PM CDT): Continue aspirin. Patient currently not on statins because of severe cramping in the upper and lower extremities. He will be evaluated by rheumatology this week. Reassess for statin next visit. Assessment & Plan (07/01/2018 12:09 PM CDT): Patient denies chest pain. He does have some dyspnea on exertion however he is morbidly obese. Continue aspirin. Localized edema 06/30/2018 Assessment & Plan (08/17/2020 9:14 AM CDT): With recent weight loss and daily compression therapy patient swelling is well controlled. Continue current conservative measures Assessment & Plan (05/18/2020 12:50 PM CDT): Impression: Chronic bilateral lower extremity edema which is likely multifactorial and secondary to his significant cardiac history, morbid obesity or possible lower extremity venous insufficiency. He is not utilize any formal compression regimen on a consistent basis. Plan: Recommend daily medical grade knee-high compression stockings 20-30 mm mercury in strength with leg elevation p.r.n. for edema control. I also recommended patient obtaining a lower extremity venous reflux study and follow-up in 3 months for discussion of his test results and re-evaluation. Assessment & Plan (08/18/2018 2:49 PM CDT): Echocardiogram shows no systolic heart failure. I will recommend that we discontinue Norvasc because Norvasc can cause lower limb edema. Will start losartan 25 mg daily. Doppler ultrasound shows no DVT. Assessment & Plan (07/01/2018 12:08 PM CDT): Patient has bilateral lower limb edema. Will order the Doppler ultrasound to rule out DVT. Also I will order a limited echocardiogram with IV contrast to evaluate his LV systolic function and exclude systolic heart failure as possible etiology for bilateral lower limb edema. Patient takes Norvasc 5 mg daily . Next visit I will switch Norvasc to losartan 25 mg daily. Norvasc can cause bilateral lower limb edema. Resolved Problems Problem Noted Date Diagnosed Date Resolved Date Acute respiratory failure wi th hypoxia ([facility]) 12/16/2018 05/02/2020 Angina pectoris, unstable ([facility]) 12/11/2018 05/02/2020 Overview (12/11/2018): Added automatically from request for surgery [id number] PAC (premature atrial contraction) 08/18/2018 03/19/2022 Assessment & Plan (08/18/2018 2:50 PM CDT): At this time I will order 48 hr Holter monitor to rule out atrial fibrillation. Patient has frequent premature atrial contractions on previous EKG and on physical exam today. Also there is evidence of moderate left atrial enlargement on echocardiogram and therefore I will rule out atrial fibrillation. Morbid obesity with BMI of 45.0-49.9, adult 07/01/2018 03/06/2021 Assessment & Plan (08/17/2020 9:14 AM CDT): Patient has lost approximately 75 lb states he feels markedly improved overall and swelling has essentially resolved with help compression therapy. Continue exercise and low-fat diet Assessment & Plan (08/18/2018 2:53 PM CDT): Advised patient regarding diet modification and regular exercise to help him lose weight. Assessment & Plan (07/01/2018 11:51 AM CDT): Advised about diet modification to help him lose weight. Advised about regular exercising as well to help him lose weight. Social History Tobacco Use Types Packs/Day Years Used Date Smoking Tobacco: Former Cigarettes Q uit: 1998 Smokeless Tobacco: Never Tobacco Cessation:Counseling Given: Not Answered Alcohol Use Standard Drinks/Week Comments Yes 0 (1 standard drink = 0.6 oz pure alcohol) 2-3 X's week 2-3 beers each time AUDIT-C Answer Date Recorded Q1: How often do you have a drink containing alcohol? Never 12/29/2024 Q2: How many drinks containi ng alcohol do you have on a typical day when you are drinking? Patient does not drink Q3: How often do you have si x or more drinks on one occasion? Never 12/29/2024 Personal Safety Answer Date Recorded Have you ever been in or are you currently in a harmful physical or emotional relationship or is someone making you feel afraid or unsafe? Denies 12/29/2024 Sex and Gender Information Value Date Recorded Sex Assigned at Not on file Legal Sex Male 6:48 PM EASTERN PHILOSOPHY PROFESSOR Gender Identity Not on file Sexual Orientation Not on file Last Filed Vital Signs Vital Sign Reading Time Taken Comments Blood Pressure 139/57 12/30/2024 8:17 AM EASTERN PHILOSOPHY PROFESSOR Pulse 65 12/30/2024 9:29 AM EASTERN PHILOSOPHY PROFESSOR Temperature 36.7 C (98 F) 12/30/2024 8:17 AM EASTERN PHILOSOPHY PROFESSOR Respiratory Rate 16 12/30/2024 8:17 AM EASTERN PHILOSOPHY PROFESSOR Oxygen Saturation 100% 12/30/2024 8:17 AM EASTERN PHILOSOPHY PROFESSOR Inhaled Oxygen Concentration - - Weight 116.8 kg (257 lb 8 oz) 12/29/2024 6:55 AM EASTERN PHILOSOPHY PROFESSOR Height 165.1 cm (5' 5 ) 12/29/2024 6:55 AM EASTERN PHILOSOPHY PROFESSOR Body Mass Index 42.85 12/29/2024 6:55 AM EASTERN PHILOSOPHY PROFESSOR Plan of Treatment Not on file Medical Devices Implanted Type Area Winch Truck Operator Device Identifier Shelf Expiration Date Model / Serial / Lot [employer] [id number] Xience Alpine 3.25mm 23mm 145cm Rapid Exchange Radiopaque 1 - [id number] Implanted:Qty: 1 on 12/16/2018 by Moreno Lam MD at [facility] [employer] 03/09/2021 1 [id number] / / [id number] [employer] [id number] Angio-Seal Vip Bondek-Plus 6fr .035in 70cm Hemostatic Latex Free - [id number] Implanted:Qty: 1 on 12/16/2018 by Moreno Lam MD at [facility] [employer] 08/24/2019 [id number] / / [id number] [employer] Device Vascular Closure Femoral Artery Bioabsorbable Dual Method Vascade 6-7fr Collagen [id number] - [id number] Implanted:Qty: 1 on 12/29/2024 by Moreno Lam MD at [facility] [employer] 05/26/2026 [id number] / / [id number] Procedures Procedure Name Priority Date/Time Associated Diagnosis Comments EGFR Routine 12/30/2024 12:25 PM EASTERN PHILOSOPHY PROFESSOR BASIC METABOLIC PANEL Routine 12/30/2024 12:25 PM EASTERN PHILOSOPHY PROFESSOR EGFR Routine 12/30/2024 11:44 AM EASTERN PHILOSOPHY PROFESSOR DIFFERENTIAL AUTO Routine 12/30/2024 11: 44 AM EASTERN PHILOSOPHY PROFESSOR CBC WITH AUTO DIFFERENTIAL Routine 12/30/2024 11:44 AM EASTERN PHILOSOPHY PROFESSOR BASIC METABOLIC PANEL Routine 12/30/2024 11:44 AM EASTERN PHILOSOPHY PROFESSOR ANGIOPLASTY BALLOON PERCUTANEOUS Routine 12/29/2024 10:26 AM EASTERN PHILOSOPHY PROFESSOR Coronary artery disease involving [place] coronary artery of [place] heart without angina pectoris Chest pain, unspecified type CORONARY OCT, 1ST VESSEL Routine 12/29/2024 10:26 AM EASTERN PHILOSOPHY PROFESSOR Coronary artery disease involving [place] coronary artery of [place] heart without angina pectoris Chest pain, unspecified type LEFT HEART CATHETERIZATION WITH CORONARY ANGIOGRAPHY GRAFT AND LEFT VENTRICULOGRAM Routine 12/29/2024 10:26 AM EASTERN PHILOSOPHY PROFESSOR Coronary artery disease involving [place] coronary artery of [place] heart without angina pectoris Chest pain, unspecified type POCT ACTIVATED CLOTTING TIME, HIGH RANGE Routine 12/29/2024 10:07 AM EASTERN PHILOSOPHY PROFESSOR POCT ACTIVATED CLOTTING TIME, HIGH RANGE Routine 12/29/2024 9:40 AM EASTERN PHILOSOPHY PROFESSOR EGFR Routine 12/29/2024 6:45 AM EASTERN PHILOSOPHY PROFESSOR DIFFERENTIAL AUTO Routine 12/29/2024 6:4 5 AM EASTERN PHILOSOPHY PROFESSOR CBC WITH AUTO DIFFERENTIAL Routine 12/29/2024 6:45 AM EASTERN PHILOSOPHY PROFESSOR BASIC METABOLIC PANEL Routine 12/29/2024 6:45 AM EASTERN PHILOSOPHY PROFESSOR ECG 12-LEAD Routine 2024 3:34 PM EASTERN PHILOSOPHY PROFESSOR Paroxysmal atrial fibrillation (CMS/HCC) (HCC) POCT LIPID PANEL Routine 2024 9:39 AM EASTERN PHILOSOPHY PROFESSOR Essential hypertension TRANSTHORACIC ECHO (TTE) COMPLETE W DOPPLER/CF WO CONTRAST Routine 11/16/2024 11:06 AM EASTERN PHILOSOPHY PROFESSOR Coronary artery disease involving [place] coronary artery of [place] heart without angina pectoris Paroxysmal atrial fibrillation (CMS/HCC) (HCC) Essential hypertension POCT LIPID PANEL Routine 11/09/2024 9:44 AM EASTERN PHILOSOPHY PROFESSOR Essential hypertension from Last 3 Months Results * eGFR (12/30/2024 12:25 PM EASTERN PHILOSOPHY PROFESSOR) eGFR 90 >=60 mL/min/1. 73 m2 Comment: Interpretive Data Reference Interval Normal >/= 90 mL/min/1.73m2 Mildly decreased* 60 - 89 mL/min/1.73m2 Mildly to moderately decreased 45 - 59 mL/min/1.73m2 Moderately to severely decreased 30 - 44 mL/min/1.73m2 Severely decreased 15 - 29 mL/min/1.73m2 Kidney Failure < 15 mL/min/1.73m2 *Relative to young adult level Estimated glomerular filtration rate is determined by the 2020 CKD-EPI equation recommended by the National Kidney Foundation (A Unifying Approach to GFR Estimation: Recommendations of the NKF-ASK Task Force on Reassessing the Inclusion of Race in Diagnosing Kidney Disease, JASN 202). The CKD-EPI equation should not be used for patients with unstable renal function and has not been validated in children and those over 70. Current interpretive data was last reviewed 2021. Blood 12/30/2024 12:2 5 PM EASTERN PHILOSOPHY PROFESSOR 12/30/2024 12:25 PM EASTERN PHILOSOPHY PROFESSOR us Moreno Lam MD LAB BLOOD ORDERABLES Final Result [facility] [address] Department [place] [address] * Basic metabolic panel (12/30/2024 12:25 PM EASTERN PHILOSOPHY PROFESSOR) Sodium 140 135 - 145 mmol/L Potassium, pl 4.5 3.3 - 4.9 mmol/L [facility] Chloride 105 97 - 110 mmol/L [facility] CH CO2 25 22 - 32 mmol/L [facility] CH Anion gap 10 2 - 15 mmol/L [facility] CH BUN 25 6 - 25 mg/dL [facility] Creatinine 0.90 0.80 - 1.30 mg/dL [facility] Glucose 92 70 - 199 mg/dL [facility] Comment: Interpretive Data Fasting glucose >/= 126 mg/dl is diagnostic for diabetes. Fasting is defined as no caloric intake for at least 8 hours. Fasting glucose between 100 mg/dl to 125 mg/dl is diagnostic of prediabetes. In a patient with classic symptoms of hyperglycemia or hyperglycemic crisis, a random glucose >/= 200 mg/dl is diagnostic for diabetes. In the absence of unequivocal hyperglycemia, results should be confirmed by repeat testing. The classification and Diagnosis of Diabetes Diabetes Care 202; 46: S19-S40. Current interpretive data was last revised 2022. Calcium 9.2 8.5 - 10.3 mg/dL [facility] Blood 12/30/2024 12:2 5 PM EASTERN PHILOSOPHY PROFESSOR 12/30/2024 12:25 PM EASTERN PHILOSOPHY PROFESSOR Moreno Lam MD LAB BLOOD ORDERABLES Final Result Performing Organization Address City/[facility] Co de Phone Number DANA PENA [address] Department of Laboratories [place], [place] [phone] * eGFR (12/30/2024 11:44 AM EASTERN PHILOSOPHY PROFESSOR) eGFR 88 >=60 mL/min/1. 73 m2 Comment: Interpretive Data Reference Interval Normal >/= 90 mL/min/1.73m2 Mildly decreased* 60 - 89 mL/min/1.73m2 Mildly to moderately decreased 45 - 59 mL/min/1.73m2 Moderately to severely decreased 30 - 44 mL/min/1.73m2 Severely decreased 15 - 29 mL/min/1.73m2 Kidney Failure < 15 mL/min/1.73m2 *Relative to young adult level Estimated glomerular filtration rate is determined by the 2020 CKD-EPI equation recommended by the National Kidney Foundation (A Unifying Approach to GFR Estimation: Recommendations of the NKF-ASK Task Force on Reassessing the Inclusion of Race in Diagnosing Kidney Disease, JASN 2020). The CKD-EPI equation should not be used for patients with unstable renal function and has not been validated in children and those over 70. Current interpretive data was last reviewed 2021. Blood 12/30/2024 11:4 4 AM EASTERN PHILOSOPHY PROFESSOR 12/30/2024 12:24 PM EASTERN PHILOSOPHY PROFESSOR Moreno Lam MD LAB BLOOD ORDERABLES Final Result Performing Organization Address City/[facility]/ZIP Co de Phone Number DANA PENA [address] Department [place] [address] * (ABNORMAL) Differential, auto (12/30/2024 11:44 AM EASTERN PHILOSOPHY PROFESSOR) Neutrophil abs 6.8(H) 1.5 - 6.5 K/cumm Imm gran abs 0.0 0.0 - 0.1 K/cumm [facility] Lymphocyte abs 1.6 0.8 - 3.3 K/cumm [facility] Monocyte abs 0.8 0.2 - 0.8 K/cumm [facility] Eosinophil abs 0.3 0.0 - 0.5 K/cumm [facility] Basophil abs 0.1 0.0 - 0.1 K/cumm [facility] Neutrophil pct 71.5 % [facility] Comment: Interpretive Data Percent cell count reference ranges are not reported, since discordance with absolute values may lead to misinterpretation of CBC data. Current Interpretive Data was last revised on 2018. Imm gran pct 0.4 % [facility] Comment: Interpretive Data Percent cell count reference ranges are not reported, since discordance with absolute values may lead to misinterpretation of CBC data. Current Interpretive Data was last revised on 2018. Lymphocyte pct 16.6 % [facility] Comment: Interpretive Data Percent cell count reference ranges are not reported, since discordance with absolute values may lead to misinterpretation of CBC data. Current Interpretive Data was last revised on 2018. Monocyte pct 8.2 % [facility] Comment: Interpretive Data Percent cell count reference ranges are not reported, since discordance with absolute values may lead to misinterpretation of CBC data. Current Interpretive Data was last revised on 2018. Eosinophil pct 2.6 % [facility] Comment: Interpretive Data Percent cell count reference ranges are not reported, since discordance with absolute values may lead to misinterpretation of CBC data. Current Interpretive Data was last revised on 2018. Basophil pct 0.7 % [facility] Comment: Interpretive Data Percent cell count reference ranges are not reported, since discordance with absolute values may lead to misinterpretation of CBC data. Current Interpretive Data was last revised on 2018. Blood 12/30/2024 11:4 4 AM EASTERN PHILOSOPHY PROFESSOR 12/30/2024 12:24 PM EASTERN PHILOSOPHY PROFESSOR us Moreno Lam MD LAB BLOOD ORDERABLES Final Result DANA BECKY [address] Department [place] [address] * (ABNORMAL) CBC with auto differential (12/30/2024 11:44 AM EASTERN PHILOSOPHY PROFESSOR) WBC 9.5 3.8 - 9.9 K/cumm Hgb 10.9(L) 13.0 - 17.5 g/dL [facility] Hct 33.5(L) 38.9 - 50.3 % [facility] Plt 253 150 - 400 K/cumm [facility] MPV 10.2 9.1 - 12.3 fL [facility] RBC 3.53(L) 4.30 - 5.80 M/cumm [facility] MCV 94.9 81.3 - 96.4 fL [facility] MCH 30.9 27.1 - 33.3 pg [facility] MCHC 32.5 32.3 - 35.7 g/dL [facility] RDW CV 13.2 11.1 - 14.9 % [facility] RDW SD 45.6 35.7 - 48.1 fL [facility] NRBC abs 0.00 0.00 - 0.01 K/cumm [facility] Blood 12/30/2024 11:4 4 AM EASTERN PHILOSOPHY PROFESSOR 12/30/2024 12:24 PM EASTERN PHILOSOPHY PROFESSOR Narrative [facility] - 12/30/2024 12:37 PM EASTERN PHILOSOPHY PROFESSOR If most recent labs were drawn prior to 4 AM, draw only prior to initiating procedure. us Moreno Lam MD LAB BLOOD ORDERABLES Final Result [facility] [address] Department [place] [address] * Basic metabolic panel (12/30/2024 11:44 AM EASTERN PHILOSOPHY PROFESSOR) Sodium 137 135 - 145 mmol/L Potassium, pl 4.4 3.3 - 4.9 mmol/L [facility] Chloride 104 97 - 110 mmol/L [facility] CO2 25 22 - 32 mmol/L [facility] Anion gap 8 2 - 15 mmol/L [facility] BUN 25 6 - 25 mg/dL [facility] Creatinine 0.92 0.80 - 1.30 mg/dL [facility] Glucose 94 70 - 199 mg/dL [facility] Comment: Interpretive Data Fasting glucose >/= 126 mg/dl is diagnostic for diabetes. Fasting is defined as no caloric intake for at least 8 hours. Fasting glucose between 100 mg/dl to 125 mg/dl is diagnostic of prediabetes. In a patient with classic symptoms of hyperglycemia or hyperglycemic crisis, a random glucose >/= 200 mg/dl is diagnostic for diabetes. In the absence of unequivocal hyperglycemia, results should be confirmed by repeat testing. The classification and Diagnosis of Diabetes Diabetes Care 2021; 46: S19-S40. Current interpretive data was last revised 2022. Calcium 9.2 8.5 - 10.3 mg/dL DANA PENA Blood 12/30/2024 11:4 4 AM EASTERN PHILOSOPHY PROFESSOR 12/30/2024 12:24 PM EASTERN PHILOSOPHY PROFESSOR us Moreno Lam MD LAB BLOOD ORDERABLES Final Result DANA PENA [address] Department [place] [address] * LEFT HEART CATHETERIZATION WITH CORONARY ANGIOGRAPHY GRAFT AND LEFT VENTRICULOGRAM, CORONARY OCT, 1ST VESSEL, ANGIOPLASTY BALLOON PERCUTANEOUS (12/29/2024 10:26 AM EASTERN PHILOSOPHY PROFESSOR) Anatomical Region Laterality Modality X-Ray Angiograph y Narrative 12/29/2024 10:53 AM EASTERN PHILOSOPHY PROFESSOR CARDIAC CATHETERIZATION REPORT Rae Alvarado IP ENCOUNTER: @CSN@ Date of Procedure: 12/29/2024 BIRTHDATE: 1950 COSTUME CUTTER: Moreno Lam MD PREPROCEDURE DIAGNOSES: This 74-year-old patient with history of hypertension, paroxysmal atrial fibrillation, morbid obesity, rheumatoid arthritis and history of CABG with REMY to LAD and ANTIONE to RCA and stenting to proximal and mid left circumflex artery 2019 using 3.25 x 23 drug-eluting stent was evaluated in the office for increasing dyspnea on exertion consistent with his symptoms of angina. PROCEDURES PERFORMED: Sedation was administered by Anesthesia. Selective left and right coronary angiogram. Selective REMY and ANTIONE angiogram. Left heart catheterization with measurement of LVEDP and measure gradient across aortic valve. Intravascular ultrasound of the left circumflex artery. Balloon angioplasty and expansion of the left circumflex artery stent using 3.5 noncompliant balloon under high pressure. Right common femoral arterial angiogram. Deployment 6 Angolan Vascade closure device. FINDINGS: Left main minimal irregularities.. Left anterior descending artery is totally occluded. Ramus intermedius with minimal irregularities. Left circumflex artery stent has InStent restenosis in the proximal portion of the stent. Right coronary artery is totally occluded in the mid segment.. Remy to LAD is widely patent. Distal to the REMY is like small with 40% lad stenosis. Patent ANTIONE to RCA with an ostial of the ANTIONE 50% unchanged from before. Intravascular ultrasound shows that the reference left circumflex artery distal to the stent is 3.25 mm. There are multiple areas and stent with under expansion. LVEDP was 15 mm Hg and no gradient across aortic valve. Right common femoral artery angiogram shows that there is haziness in the right common femoral artery. COMPLICATIONS: None ESTIMATED BLOOD LOSS: 5 mL PROCEDURAL DESCRIPTION: After informed consent patient was brought into the supervisor cytogenetic laboratory where she was draped and prepped in the usual manner. Moderate sedation was given and the right groin infiltrated using 1% lidocaine. Five Angolan sheath was obtained using micropuncture needle and modified Seldinger technique. Selective left coronary angiogram was done using JL4 catheter with the tip of the catheter placed in the left main coronary artery. Selective right coronary angiogram was done using JR4 catheter with the tip of the catheter placed in the right coronary artery. JR4 was entered in the right subclavian and ANTIONE angiogram was done. Then the JR4 was entered in the left subclavian and then using long exchange wire we used daily MAC catheter and selective REMY angiogram was done. After that 5 Angolan pigtail catheter was advanced across aortic valve into the left ventricular with measurement of LVEDP and measure gradient across aortic valve. Right common femoral arterial angiogram was done and deployed 6 Angolan Vascade closure device. INTERVENTION Left main was engaged using 6 Angolan guide catheter CLS 3.5. Heparin was administered. After that coronary minamo wire was advanced to distal left circumflex artery and then balloon angioplasty done using 3 x 15 regular balloon under nominal pressure for 15 seconds and then after that intravascular ultrasound was done shows that the reference artery of the distal left circumflex artery is about 3.25 mm however there are areas in the stent where the stent is under expanded. Therefore we initially took 3.25 x 15 noncompliant balloon and inflated it for couple times each time under 24 atmospheres for 20 seconds each time and then after that used a 3.5 x 12 noncompliant balloon and inflated it under 16 atmospheres for a couple times. Final result shows resolution of the InStent restenosis. Access site: Right common femoral artery. Hemostasis: 6 Angolan Vascade closure device. CONCLUSIONS InStent restenosis of the left circumflex artery stent with the mechanism thought to be related to under expansion. Re-expansion of the stent using 3.5 mm noncompliant balloon. Patent REMY to LAD and ANTIONE to RCA PLAN Will add Plavix to his aspirin and Xarelto. Plavix to be taken for a month. Moreno Lam MD CV CARDIAC CATH PROC EDURES Final Result * (ABNORMAL) POC Activated Clotting Time, High Range (12/29/2024 10:07 AM EASTERN PHILOSOPHY PROFESSOR) ACT 263(H) 87 - 138 sec Blood 12/29/2024 10:0 7 AM EASTERN PHILOSOPHY PROFESSOR 12/29/2024 10:07 AM EASTERN PHILOSOPHY PROFESSOR Moreno Lam MD LAB BLOOD ORDERABLES Final Result Performing Organization Address City/[facility]/ZIP Co de Phone Number DANA BECKY [phone] [address] [employer] [place], [place] [id number] * (ABNORMAL) POC Activated Clotting Time, High Range (12/29/2024 9:40 AM EASTERN PHILOSOPHY PROFESSOR) ACT 285(H) 87 - 138 sec Blood 12/29/2024 9:40 AM EASTERN PHILOSOPHY PROFESSOR 12/29/2024 9:40 AM EASTERN PHILOSOPHY PROFESSOR Moreno Lam MD LAB BLOOD ORDERABLES Final Result Performing Organization Address City/[facility]/ZIP Co de Phone Number LASHONDARUPERTO PENA [address] [address] [place] [address] * (ABNORMAL) eGFR (12/29/2024 6:45 AM EASTERN PHILOSOPHY PROFESSOR) [facility] eGFR 55(L) >=60 mL/min/1. 73 m2 Comment: Interpretive Data Reference Interval Normal >/= 90 mL/min/1.73m2 Mildly decreased* 60 - 89 mL/min/1.73m2 Mildly to moderately decreased 45 - 59 mL/min/1.73m2 Moderately to severely decreased 30 - 44 mL/min/1.73m2 Severely decreased 15 - 29 mL/min/1.73m2 Kidney Failure < 15 mL/min/1.73m2 *Relative to young adult level Estimated glomerular filtration rate is determined by the 2020 CKD-EPI equation recommended by the National Kid[employer] (A Unifying Approach to GFR Estimation: Recommendations of the NKF-ASK Task Force on Reassessing the Inclusion of Race in Diagnosing Kidney Disease, JASN 2020). The CKD-EPI equation should not be used for patients with unstable renal function and has not been validated in children and those over 70. Current interpretive data was last reviewed 2021. Blood 12/29/2024 6:45 AM EASTERN PHILOSOPHY PROFESSOR 12/29/2024 7:44 AM EASTERN PHILOSOPHY PROFESSOR Moreno Lam MD LAB BLOOD ORDERABLES Final Result [facility] [address] [address] Department of Laboratories [place] [phone] * Differential, auto (12/29/2024 6:45 AM EASTERN PHILOSOPHY PROFESSOR) Neutrophil abs 3.9 1.5 - 6.5 K/cumm Imm gran abs 0.0 0.0 - 0.1 K/cumm [facility] Lymphocyte abs 1.9 0.8 - 3.3 K/cumm [facility] Monocyte abs 0.7 0.2 - 0.8 K/cumm [facility] Eosinophil abs 0.4 0.0 - 0.5 K/cumm [facility] Basophil abs 0.1 0.0 - 0.1 K/cumm [facility] Neutrophil pct 56.2 % [facility] Comment: Interpretive Data Percent cell count reference ranges are not reported, since discordance with absolute values may lead to misinterpretation of CBC data. Current Interpretive Data was last revised on 2018. Imm gran pct 0.1 % DANA Comment: Interpretive Data Percent cell count reference ranges are not reported, since discordance with absolute values may lead to misinterpretation of CBC data. Current Interpretive Data was last revised on 2018. Lymphocyte pct 27.4 % [facility] Comment: Interpretive Data Percent cell count reference ranges are not reported, since discordance with absolute values may lead to misinterpretation of CBC data. Current Interpretive Data was last revised on 2018. Monocyte pct 10.0 % [facility] Comment: Interpretive Data Percent cell count reference ranges are not reported, since discordance with absolute values may lead to misinterpretation of CBC data. Current Interpretive Data was last revised on 2018. Eosinophil pct 5.1 % [facility] Comment: Interpretive Data Percent cell count reference ranges are not reported, since discordance with absolute values may lead to misinterpretation of CBC data. Current Interpretive Data was last revised on 2018. Basophil pct 1.2 % [facility] Comment: Interpretive Data Percent cell count reference ranges are not reported, since discordance with absolute values may lead to misinterpretation of CBC data. Current Interpretive Data was last revised on 2018. Blood 12/29/2024 6:45 AM EASTERN PHILOSOPHY PROFESSOR 12/29/2024 7:42 AM EASTERN PHILOSOPHY PROFESSOR us Moreno Lam MD LAB BLOOD ORDERABLES Final Result [facility] [address] [address] Department [place] [address] * (ABNORMAL) CBC with auto differential (12/29/2024 6:45 AM EASTERN PHILOSOPHY PROFESSOR) WBC 6.9 3.8 - 9.9 K/cumm Hgb 12.1(L) 13.0 - 17.5 g/dL [facility] Hct 37.8(L) 38.9 - 50.3 % [facility] Plt 269 150 - 400 K/cumm [facility] MPV 10.5 9.1 - 12.3 fL [facility] RBC 4.00(L) 4.30 - 5.80 M/cumm [facility] MCV 94.5 81.3 - 96.4 fL [facility] MCH 30.3 27.1 - 33.3 pg [facility] CH MCHC 32.0(L) 32.3 - 35.7 g/dL [facility] RDW CV 12.9 11.1 - 14.9 % [facility] RDW SD 44.2 35.7 - 48.1 fL [facility] NRBC abs 0.00 0.00 - 0.01 K/cumm [facility] CH Blood 12/29/2024 6:45 AM EASTERN PHILOSOPHY PROFESSOR 12/29/2024 7:42 AM EASTERN PHILOSOPHY PROFESSOR Moreno Lam MD LAB BLOOD ORDERABLES Final Result [facility] [address] [address] [place] [address] * (ABNORMAL) Basic metabolic panel (12/29/2024 6:45 AM EASTERN PHILOSOPHY PROFESSOR) Sodium 139 135 - 145 mmol/L Potassium, pl 5.1(H) 3.3 - 4.9 mmol/L [facility] Chloride 102 97 - 110 mmol/L [facility] CO2 25 22 - 32 mmol/L [facility] Anion gap 12 2 - 15 mmol/L [facility] BUN 42(H) 6 - 25 mg/dL [facility] Creatinine 1.36(H) 0.80 - 1.30 mg/dL [facility] Glucose 81 70 - 199 mg/dL [facility] Comment: Interpretive Data Fasting glucose >/= 126 mg/dl is diagnostic for diabetes. Fasting is defined as no caloric intake for at least 8 hours. Fasting glucose between 100 mg/dl to 125 mg/dl is diagnostic of prediabetes. In a patient with classic symptoms of hyperglycemia or hyperglycemic crisis, a random glucose >/= 200 mg/dl is diagnostic for diabetes. In the absence of unequivocal hyperglycemia, results should be confirmed by repeat testing. The classification and Diagnosis of Diabetes Diabetes Care 2021; 46: S19-S40. Current interpretive data was last revised 2022. Calcium 9.7 8.5 - 10.3 mg/dL [facility] Blood 12/29/2024 6:45 AM EASTERN PHILOSOPHY PROFESSOR 12/29/2024 7:42 AM EASTERN PHILOSOPHY PROFESSOR Moreno Lam MD LAB BLOOD ORDERABLES Final Result DANA PENA [address] [address] Department [place] [address] * ECG 12 lead (2024 3:34 PM EASTERN PHILOSOPHY PROFESSOR) Moreno Lam MD ECG ORDERABLES Sherri l Result * POCT lipid panel (2024 9:39 AM EASTERN PHILOSOPHY PROFESSOR) Cholesterol, POC 126 mg/dL Comment:GLU = 113 HDL, POC 22 mg/dL Triglycerides, POC 323 mg/dL LDL Cholesterol POC 40 mg/dL Chol/HDL Ratio, POC 1.8 Non-HDL Cholesterol, POC 104 mg/dL Cholesterol Total, POC 126 mg/dL Capillary blood 2024 9 :39 AM EASTERN PHILOSOPHY PROFESSOR Moreno Lam MD POINT OF CARE TEST O RDERABLES Final Result * TRANSTHORACIC ECHO (TTE) COMPLETE W DOPPLER/CF WO CONTRAST (11/16/2024 11:06 AM EASTERN PHILOSOPHY PROFESSOR) Anatomical Region Laterality Modality Ultrasound 11/16/2024 10:4 9 AM EASTERN PHILOSOPHY PROFESSOR Narrative 11/16/2024 12:28 PM EASTERN PHILOSOPHY PROFESSOR [facility] [address], [place] [address] [address] [facility] [address], [place] [address] P:[phone] P:[phone] Echocardiographic Report Patient Name: RAE ALVARADO W : 1950 Study Date: 11/16/2024 10:49:15 AM Gender: M Tech: GARCIA Location: [place] Ref Provider: MORENO LAM Height(Cm): 170 BSA: 2.31 Weight(Kg): 113.4 Heart Rate: 56 BP: 153 / 92 Quality: Good Order Provider: MORENO LAM PROCEDURES: Echocardiographic Report: Transthoracic echocardiogram with complete 2D, M-Mode, and color Doppler examination. INDICATIONS: I25.10 Atherosclerotic heart disease of [place] coronary artery without angina pectoris, I48.0 Paroxysmal atrial fibrillation, and I10 Essential (primary) hypertension. MEASUREMENTS: 2D/MM Value Range Doppler Value Range EF Mod BP 60 % [ 52 - 72 ] AV Mean PG 3 mmHg LVIDd 2D 5.31 cm [ 4.20 - 5.80 ] AV Peak Teodoro 1.19 m/s [ 1.00 - 1.70 ] LVIDs 2D 3.22 cm [ 2.50 - 4.00 ] AV Peak PG 6 mmHg LVPWd 2D 1.57 cm [ 0.60 - 1.00 ] AV VTI 27.98 cm IVSd 2D 1.64 cm [ 0.60 - 1.00 ] LVOT Diam 2.16 cm [ 1.70 - 2.10 ] LA Volume Index 40 cc/m2 [ 16 - 34 ] MV E Peak Teodoro 0.41 m/s [ 0.60 - 1.30 ] MV A Peak [place]ed[place] 0.79 m/s [ 1.00 - 1.20 ] MV Decel Time 585 msec [ 104 - 258 ] Lateral E` 0.06 m/s [ 0.10 - 0.15 ] E` 0.04 m/s E/E` 7 2D/MM Value Range Doppler Value Range - FINDINGS: Interpretation Site: Exam was interpreted at [facility]. Left Ventricle: Normal left ventricular size. Mild concentric left ventricular hypertrophy. Diastolic dysfunction is present. Ejection fraction is measured at 60 %. Right Ventricle: Normal right ventricular size. Normal right ventricular systolic function. Left Atrium: There is moderate enlargement of left atrium. Right Atrium: The right atrium is normal in size. Atrial Septum: Normal atrial septum. Mitral Valve: Normal appearance of the mitral valve. No mitral valve regurgitation is seen. There is no hemodynamically significant mitral stenosis by Doppler. Aortic Valve: Normal appearance of the aortic valve. No evidence of hemodynamically significant aortic stenosis by Doppler. Trileaflet aortic valve. No aortic regurgitation. Tricuspid Valve: Normal appearance of the tricuspid valve. No evidence of tricuspid regurgitation. Pulmonic Valve: Normal appearance of the pulmonic valve. No evidence of pulmonic regurgitation. Pericardium: Normal pericardium with no significant pericardial effusion. Aorta: Sinus of Valsalva is normal. IVC: The IVC is not well visualized. Pulmonary Artery: Normal pulmonary artery size. CONCLUSIONS: Normal left ventricular size. Mild concentric left ventricular hypertrophy. Diastolic dysfunction is present. Ejection fraction is measured at 60 %. There is moderate enlargement of left atrium. Technically difficult study with limited views. Electronically Signed By: Dr. Moreno Lam [facility] 11/16/2024 12:27:44 PM EASTERN PHILOSOPHY PROFESSOR Procedure Note Moreno Lam MD - 11/16/2024 [facility] [address] [facility] [address] [address] [address] [facility] [address], [place] [address] P:[phone] P:[phone] Echocardiographic Report Patient Name: RAE ALVARADO W : 1950 Study Date: 11/16/2024 10:49:15 AM Gender: M Tech: Location: [facility] Provider: MORENO LAM Height(Cm): 170 BSA: 2.31 Weight(Kg): 113.4 Heart Rate: 56 BP: 153 / 92 Quality: Good Order Provider: MORENO LAM PROCEDURES: Echocardiographic Report: Transthoracic echocardiogram with complete 2D, M-Mode, and color Dopplerexamination. INDICATIONS: I25.10 Atherosclerotic heart disease of [place] coronary artery withoutangina pectoris, I48.0 Paroxysmal atrial fibrillation, and I10 Essential (primary)hypertension. MEASUREMENTS: 2D/MM Value Range Doppler ValueRange EF Mod BP 60 % [ 52 - 72 ] AV Mean PG 3mmHg LVIDd 2D 5.31 cm [ 4.20 - 5.80 ] AV Peak Teodoro 1.19m/s [ 1.00 - 1.70 ] LVIDs 2D 3.22 cm [ 2.50 - 4.00 ] AV Peak PG 6mmHg LVPWd 2D 1.57 cm [ 0.60 - 1.00 ] AV VTI 27.98cm IVSd 2D 1.64 cm [ 0.60 - 1.00 ] LVOT Diam 2.16 cm[ 1.70 - 2.10 ] LA Volume Index 40 cc/m2 [ 16 - 34 ] MV E Peak Teodoro 0.41m/s [ 0.60 - 1.30 ] MV A Peak Teodoro 0.79 m/s [ 1.00 - 1.20 ] MV Decel Time 585 msec [ 104 - 258 ] Lateral E` 0.06 m/s [ 0.10 - 0.15 ] E` 0.04 m/s E/E` 7 2D/MM Value Range Doppler ValueRange - FINDINGS: Interpretation Site: Exam was interpreted at [facility]. Left Ventricle: Normal left ventricular size. Mild concentric left ventricularhypertrophy. Diastolic dysfunction is present. Ejection fraction is measured at 60 %. Right Ventricle: Normal right ventricular size. Normal right ventricular systolicfunction. Left Atrium: There is moderate enlargement of left atrium. Right Atrium: The right atrium is normal in size. Atrial Septum: Normal atrial septum. Mitral Valve: Normal appearance of the mitral valve. No mitral valve regurgitation isseen. There is no hemodynamically significant mitral stenosis by Doppler. Aortic Valve: Normal appearance of the aortic valve. No evidence of hemodynamicallysignificant aortic stenosis by Doppler. Trileaflet aortic valve. No aortic regurgitation. Tricuspid Valve: Normal appearance of the tricuspid valve. No evidence of tricuspidregurgitation. Pulmonic Valve: Normal appearance of the pulmonic valve. No evidence of pulmonicregurgitation. Pericardium: Normal pericardium with no significant pericardial effusion. Aorta: Sinus of Valsalva is normal. IVC: The IVC is not well visualized. Pulmonary Artery: Normal pulmonary artery size. CONCLUSIONS: Normal left ventricular size. Mild concentric left ventricularhypertrophy. Diastolic dysfunction is present. Ejection fraction is measured at 60 %. There is moderate enlargement of left atrium. Technically difficult study with limited views. Electronically Signed By: Dr. Moreno Lam [facility] 11/16/2024 12:27:44 PM EASTERN PHILOSOPHY PROFESSOR Moreno Lam MD CV ECHO PROCEDURES F inal Result * POCT lipid panel (11/09/2024 9:44 AM EASTERN PHILOSOPHY PROFESSOR) Cholesterol, POC 125 mg/dL Comment:GLU = 91 HDL, POC 22 mg/dL Triglycerides, POC 416 mg/dL LDL Cholesterol POC 23 mg/dL Chol/HDL Ratio, POC N/A Non-HDL Cholesterol, POC 103 mg/dL Cholesterol Total, POC 125 mg/dL Capillary blood 11/09/2024 9 :44 AM EASTERN PHILOSOPHY PROFESSOR Moreno Lam MD POINT OF CARE TEST O RDERABLES Final Result from Last 3 Months Insurance [facility]IC[facility] Member Subscriber Plan / Payer (Ef fective 2024-Present) Name:Jered Rae Nguyen Relation to Subscriber:Self Name:Rae Alvarado Payer ID:[id number] Group ID:[id number] Type:COMMERCIAL Address: [address] [address] [place] [address] Advance Directives For more information, please contact: [phone] * Full Code (Latest Code Status on File) Date Activated Date Inactivated Comments 12/29/2024 10:49 AM 12/30/2024 7:06 PM * Full Code Date Activated Date Inactivated Comments 12/16/2018 2:21 PM 12/17/2018 10:04 PM Care Teams Sliver Cutter Relationship Specialty Start Date End Date Walker Breen MD PCP - General Family Practice 03/06/21 Sandy Bragg MD Family Medicine 08/10/20
--- OUTSIDE RECORDS SUMMARY | 2025-01-07 15:51 | XMS_ITS | Encounter Summary ---
Author Organization [employer] Address [address] [place] [address] Care Team Providers Care [facility] Name Role Phone Danish Ramírez MD Primary Care Provider Encounter Details Date Type Department Care Team (Latest Contact Info) Description 12/10/2006 Inpatient Historical HIS PATIENT IN A BED Akash Lopez Jr., MD NO ADDRESS ON FILE Augusto Mckeon MD [address] [id number] Coronary Atherosclerosis of [place] Coronary Artery (Primary Dx) Social History Tobacco Use Types Packs/Day Years Used Date Smoking Tobacco: Never Assessed Sex and Gender Information Value Date Recorded Sex Assigned at Not on file Legal Sex Male 5:17 AM ZINC PLATE CUTTER Gender Identity Not on file Sexual Orientation Not on file documented as of this encounter Plan of Treatment Not on file documented as of this encounter Procedures Procedure Name Priority Date/Time Associated Diagnosis Comments POC GLUCOSE Routine 2006 8:51 AM ZINC PLATE CUTTER POC GLUCOSE Routine 12/13/2006 8:34 PM ZINC PLATE CUTTER POC GLUCOSE Routine 12/13/2006 4:32 PM ZINC PLATE CUTTER POC GLUCOSE Routine 12/13/2006 11:33 AM ZINC PLATE CUTTER POC GLUCOSE Routine 12/13/2006 7:06 AM ZINC PLATE CUTTER CBC WITH DIFFERENTIAL Routine 12/13/2006 6:27 AM ZINC PLATE CUTTER CBC WITH DIFFERENTIAL Routine 12/13/2006 6:27 AM ZINC PLATE CUTTER MAGNESIUM LEVEL Routine 12/13/2006 5:34 AM ZINC PLATE CUTTER BASIC METABOLIC PANEL Routine 12/13/2006 5:34 AM ZINC PLATE CUTTER POC GLUCOSE Routine 12/12/2006 9:50 PM ZINC PLATE CUTTER POC GLUCOSE Routine 12/12/2006 5:29 PM ZINC PLATE CUTTER CK TOTAL, RELATIVE INDEX Routine 12/12/2006 5:21 PM ZINC PLATE CUTTER CKMB W/REFLEX CK Routine 12/12/2006 5:21 PM ZINC PLATE CUTTER POC GLUCOSE Routine 12/12/2006 12:05 PM ZINC PLATE CUTTER CVR ONLY, CKMB/CK Routine 12/12/2006 10: 15 AM ZINC PLATE CUTTER POC GLUCOSE Routine 12/12/2006 6:59 AM ZINC PLATE CUTTER POC, BLOOD GASES Routine 12/12/2006 4:45 AM ZINC PLATE CUTTER PT AND APTT Routine 12/12/2006 4:00 AM ZINC PLATE CUTTER CBC WITH DIFFERENTIAL Routine 12/12/2006 4:00 AM ZINC PLATE CUTTER CBC WITH DIFFERENTIAL Routine 12/12/2006 4:00 AM ZINC PLATE CUTTER COMPREHENSIVE METABOLIC PANEL Routine 12/12/2006 4:00 AM ZINC PLATE CUTTER POTASSIUM LEVEL Routine 12/12/2006 1:08 AM ZINC PLATE CUTTER MAGNESIUM LEVEL Routine 12/12/2006 1:08 AM ZINC PLATE CUTTER POC GLUCOSE Routine 12/12/2006 1:02 AM ZINC PLATE CUTTER CVR ONLY, CKMB/CK Routine 12/12/2006 1:0 0 AM ZINC PLATE CUTTER POTASSIUM LEVEL Routine 12/11/2006 9:25 PM ZINC PLATE CUTTER MAGNESIUM LEVEL Routine 12/11/2006 9:25 PM ZINC PLATE CUTTER POC GLUCOSE Routine 12/11/2006 7:01 PM ZINC PLATE CUTTER POC, BLOOD GASES Routine 12/11/2006 5:21 PM ZINC PLATE CUTTER CVR ONLY, CKMB/CK Routine 12/11/2006 4:5 9 PM ZINC PLATE CUTTER PT AND APTT Routine 12/11/2006 4:59 PM ZINC PLATE CUTTER CBC WITH DIFFERENTIAL Routine 12/11/2006 4:59 PM ZINC PLATE CUTTER CBC WITH DIFFERENTIAL Routine 12/11/2006 4:59 PM ZINC PLATE CUTTER MAGNESIUM LEVEL Routine 12/11/2006 4:59 PM ZINC PLATE CUTTER BASIC METABOLIC PANEL Routine 12/11/2006 4:59 PM ZINC PLATE CUTTER POC, BLOOD GASES Routine 12/11/2006 3:23 PM ZINC PLATE CUTTER POC, BLOOD GASES Routine 12/11/2006 1:11 PM ZINC PLATE CUTTER URINALYSIS W/REFLEX MICROSCOPIC Routine 12/11/2006 1:50 AM ZINC PLATE CUTTER COMPREHENSIVE METABOLIC PANEL Routine 12/10/2006 8:00 PM ZINC PLATE CUTTER POC ACTIVATED CLOTTING TIME Routine 12/10/2006 7:56 PM ZINC PLATE CUTTER documented in this encounter Results * (ABNORMAL) POC GLUCOSE (2006 8:51 AM ZINC PLATE CUTTER) GLUCOSE POC 137(H) 65 - 99 mg/dL INTERFACE SYSTEM 2006 8:51 AM ZINC PLATE CUTTER us Augusto Mckeon MD POINT OF CARE TESTING Shravansaeed pierce INTERFACE SYSTEM Refer to clinic/hospital department * POC GLUCOSE (12/13/2006 8:34 PM ZINC PLATE CUTTER) GLUCOSE POC 77 65 - 99 mg/dL INTERFACE SYSTEM 12/13/2006 8:34 PM ZINC PLATE CUTTER Augusto Mckeon MD POINT OF CARE TESTING Shravan stan Performing Organization Address [facility] Phone Number INTERFACE SYSTEM Refer to clinic/hospital department * (ABNORMAL) POC GLUCOSE (12/13/2006 4:32 PM ZINC PLATE CUTTER) COMMENT, GLU POC Notified RN INTERFACE SYSTEM GLUCOSE POC 131(H) 65 - 99 mg/dL INTERFACE SYSTEM 12/13/2006 4:32 PM ZINC PLATE CUTTER Augusto Mckeon MD POINT OF CARE TESTING Shravan stan Performing Organization Address [facility] Phone Number INTERFACE SYSTEM Refer to clinic/hospital department * (ABNORMAL) POC GLUCOSE (12/13/2006 11:33 AM ZINC PLATE CUTTER) COMMENT, GLU POC Notified RN INTERFACE SYSTEM GLUCOSE POC 128(H) 65 - 99 mg/dL INTERFACE SYSTEM 12/13/2006 11:3 3 AM ZINC PLATE CUTTER Augusto Mckeon MD POINT OF CARE TESTING Shravan stan Performing Organization Address [facility] Phone Number INTERFACE SYSTEM Refer to clinic/hospital department * (ABNORMAL) POC GLUCOSE (12/13/2006 7:06 AM ZINC PLATE CUTTER) COMMENT, GLU POC Notified RN INTERFACE SYSTEM GLUCOSE POC 136(H) 65 - 99 mg/dL INTERFACE SYSTEM 12/13/2006 7:06 AM ZINC PLATE CUTTER Augusto Mckeon MD POINT OF CARE TESTING Shravan stan Performing Organization Address [facility] de Phone Number INTERFACE SYSTEM Refer to clinic/hospital department * (ABNORMAL) CBC WITH DIFFERENTIAL (12/13/2006 6:27 AM ZINC PLATE CUTTER) NEUTROPHILS 76(H) 45 - 70 % INTERFAC E SYSTEM LYMPHOCYTES 12(L) 16 - 45 % INTERFAC E SYSTEM MONOCYTES 10 3 - 13 % INTERFACE SYSTEM EOSINOPHILS 2 0 - 7 % INTERFAC E SYSTEM BASOPHILS 0 0 - 2 % INTERFACE SYSTEM NEUTROPHIL ABSOLUTE 8.46(H) 1.90 - 7.00 K/uL INTERFACE SYSTEM LYMPHOCYTE ABSOLUTE 1.28 0.70 - 4.50 K/uL INTERFACE SYSTEM MONOCYTE ABSOLUTE 1.15 0.10 - 1.30 K/uL INTERFACE SYSTEM EOSINOPHIL ABSOLUTE 0.25 0.00 - 0.70 K/uL INTERFACE SYSTEM BASOPHILS ABSOLUTE 0.03 0.00 - 0.20 K/uL INTERFACE SYSTEM 12/13/2006 6:27 AM ZINC PLATE CUTTER Berenice JOHNSON HEMATOLOGY ORDERABLES Edited Performing Organization Address City/[facility] de Phone Number INTERFACE SYSTEM Refer to clinic/hospital department * (ABNORMAL) CBC WITH DIFFERENTIAL (12/13/2006 6:27 AM ZINC PLATE CUTTER) WBC 11.2(H) 4.0 - 9.8 K/uL INTERFACE SYSTEM RBC 3.27(L) 4.50 - 5.40 M/uL INTERFACE SYSTEM HEMOGLOBIN 9.7(L) 13.6 - 16.5 g/dL INTERFACE SYSTEM HEMATOCRIT 28.9(L) 40.0 - 48.0 % INTERFACE SYSTEM MCV 88.4 82.0 - 99.0 fL INTERFACE SYSTEM MCH 29.7 27.2 - 32.6 pg INTERFACE SYSTEM MCHC 33.6 31.5 - 35.5 % INTERFACE SYSTEM RDW 13.3 11.5 - 14.5 % INTERFACE SYSTEM RDW-STDEV 42.8 37.1 - 48.7 fL INTERFACE SYSTEM PLATELETS 183 140 - 350 K/uL INTERFACE SYSTEM MPV 11.5 9.3 - 12.4 fL INTERFACE SYSTEM 12/13/2006 6:27 AM ZINC PLATE CUTTER Berenice JOHNSON HEMATOLOGY ORDERABLES Edited Performing Organization Address City/[facility] Co de Phone Number INTERFACE SYSTEM Refer to clinic/hospital department * MAGNESIUM LEVEL (12/13/2006 5:34 AM ZINC PLATE CUTTER) MAGNESIUM 2.4 1.5 - 2.5 mg/dL INTERFACE SYSTEM 12/13/2006 5:34 AM ZINC PLATE CUTTER Akash Lopez Jr., MD CHEMISTRY ORDERABLES Ed ited Performing Organization Address [facility] Phone Number INTERFACE SYSTEM Refer to clinic/hospital department * (ABNORMAL) BASIC METABOLIC PANEL (12/13/2006 5:34 AM ZINC PLATE CUTTER) GLUCOSE 109(H) 65 - 99 mg/dL INTERFACE SYSTEM CREATININE 0.77 0.67 - 1.17 mg/dL INTERFACE SYSTEM BUN 19 6 - 20 mg/dL INTERFACE SYSTEM SODIUM 136 135 - 145 mmol/L INTERFACE SYSTEM POTASSIUM 4.9 3.5 - 4.9 mmol/L INTERFACE SYSTEM Comment: Moderate hemolysis present. Can cause significant falsely elevated result. Clinical judgement necessary. Redraw if indicated. CHLORIDE 104 96 - 108 mmol/L INTERFACE SYSTEM CO2 25 22 - 30 mmol/L INTERFACE SYSTEM GFR, >60 >=60 mL/min/1. 7 sq meter INTERFACE SYSTEM GFR >60 >=60 mL/min/1. 7 sq meter INTERFACE SYSTEM Comment: Estimated GFR rate interpretative information for both Americans and non- Americans is available on the [facility] Intranet at: [email or web address] Select: Lab Policies and Procedures Select: Reference Ranges - GFR CALCIUM 8.3(L) 8.4 - 10.2 mg/dL INTERFACE SYSTEM Comment:Verified by repeat a nalysis. 12/13/2006 5:34 AM ZINC PLATE CUTTER us Akash Lopez Jr., MD CHEMISTRY ORDERABLES Ed ited Performing Organization Address [facility] Phone Number INTERFACE SYSTEM Refer to clinic/hospital department * (ABNORMAL) POC GLUCOSE (12/12/2006 9:50 PM ZINC PLATE CUTTER) GLUCOSE POC 126(H) 65 - 99 mg/dL INTERFACE SYSTEM 12/12/2006 9:50 PM ZINC PLATE CUTTER Augusto Mckeon MD POINT OF CARE TESTING Shravan stan Performing Organization Address [facility] Phone Number INTERFACE SYSTEM Refer to clinic/hospital department * (ABNORMAL) POC GLUCOSE (12/12/2006 5:29 PM ZINC PLATE CUTTER) GLUCOSE POC 124(H) 65 - 99 mg/dL INTERFACE SYSTEM 12/12/2006 5:29 PM ZINC PLATE CUTTER Augusto Mckeon MD POINT OF CARE TESTING Shravan stan Performing Organization Address [facility] Phone Number INTERFACE SYSTEM Refer to clinic/hospital department * (ABNORMAL) CK TOTAL, RELATIVE INDEX (12/12/2006 5:21 PM ZINC PLATE CUTTER) CK 1,354(H) 10 - 170 U/L INTERFACE SYSTEM CARDIAC RELATIVE INDEX 1.2 <=4.0 INTERFACE SYSTEM 12/12/2006 5:21 PM ZINC PLATE CUTTER Narrative INTERFACE SYSTEM - 12/12/2006 7:52 PM ZINC PLATE CUTTER Ordered by an unspecified provider. us Historical Provider CHEMISTRY ORDERABLES Edited Performing Organization Address [facility] Phone Number INTERFACE SYSTEM Refer to clinic/hospital department * (ABNORMAL) CKMB W/REFLEX CK (12/12/2006 5:21 PM ZINC PLATE CUTTER) CKMB 15.5(AA) <=6.7 ng/mL INTERFACE SYSTEM Comment:Persistent abnormal result CKMB INTERP See Below INTERFAC E SYSTEM Comment:Elevated CKMB,Consis tent with Myocardial Injury. 12/12/2006 5:21 PM ZINC PLATE CUTTER Narrative INTERFACE SYSTEM - 12/12/2006 7:30 PM ZINC PLATE CUTTER Ordered by an unspecified provider. Historical Provider CHEMISTRY ORDERABLES Edited Performing Organization Address [facility] Phone Number INTERFACE SYSTEM Refer to clinic/hospital department * (ABNORMAL) POC GLUCOSE (12/12/2006 12:05 PM ZINC PLATE CUTTER) GLUCOSE POC 128(H) 65 - 99 mg/dL INTERFACE SYSTEM 12/12/2006 12:0 5 PM ZINC PLATE CUTTER Augusto Mckeon MD POINT OF CARE TESTING Shravan stan Performing Organization Address [facility] Phone Number INTERFACE SYSTEM Refer to clinic/hospital department * (ABNORMAL) CVR ONLY, CKMB/CK (12/12/2006 10:15 AM ZINC PLATE CUTTER) CKMB 14.3(AA) <=6.7 ng/mL INTERFACE SYSTEM Comment:Persistent abnormal result CKMB INTERP See Below INTERFAC E SYSTEM Comment:Elevated CKMB,Consis tent with Myocardial Injury CK 1,002(H) 10 - 170 U/L INTERFACE SYSTEM CARDIAC RELATIVE INDEX 1.4 <=4.0 INTERFACE SYSTEM 12/12/2006 10:1 5 AM ZINC PLATE CUTTER Catalina Jaramillo PA-C CHEMISTRY ORDERABLES Edite d Performing Organization Address [facility] Phone Number INTERFACE SYSTEM Refer to clinic/hospital department * (ABNORMAL) POC GLUCOSE (12/12/2006 6:59 AM ZINC PLATE CUTTER) GLUCOSE POC 148(H) 65 - 99 mg/dL INTERFACE SYSTEM 12/12/2006 6:59 AM ZINC PLATE CUTTER Augusto Mckeon MD POINT OF CARE TESTING Shravan stan Performing Organization Address [facility] Phone Number INTERFACE SYSTEM Refer to clinic/hospital department * (ABNORMAL) POC RT, BLOOD GASES (12/12/2006 4:45 AM ZINC PLATE CUTTER) PH ARTERIAL 7.36 7.35 - 7.45 INTERFACE SYSTEM PCO2 ARTERIAL 43 35 - 48 mm Hg INTERFACE SYSTEM PO2 ARTERIAL 97 83 - 108 mm Hg INTERFACE SYSTEM O2 SAT EST ABG POC 97 95 - 99 % INTERFACE SYSTEM PATIENT'S TEMPERATURE 37.0 Degree C INTERFACE SYSTEM BASE EXCESS ABG -1.2 -2.0 - 3.0 mmol/L INTERFACE SYSTEM HCO3 ARTERIAL 24 22 - 26 mmol/L INTERFACE SYSTEM SODIUM POC 135 135 - 145 mmol/L INTERFACE SYSTEM POTASSIUM POC 4.9 3.5 - 4.9 mmol/L INTERFACE SYSTEM CALICUM IONIZED, WHOLE BLOOD 4.37(L) 4.76 - 5.16 mg/dL INTERFACE SYSTEM HEMATOCRIT POC 37.0(L) 40.0 - 48.0 % INTERFACE SYSTEM FIO2 35 INTERFACE SYSTEM OXYGEN MODE IMV INTERFAC E SYSTEM PEEP POC 5 INTERFACE SYSTEM COMMENT, GASES POC RESULTS GIVEN TO RN INTERFACE SYSTEM 12/12/2006 4:45 AM ZINC PLATE CUTTER Augusto Mckeon MD CHEMISTRY ORDERABLES Edit ed Performing Organization Address [facility] de Phone Number INTERFACE SYSTEM Refer to clinic/hospital department * (ABNORMAL) CBC WITH DIFFERENTIAL (12/12/2006 4:00 AM ZINC PLATE CUTTER) NEUTROPHILS 85(H) 45 - 70 % INTERFAC E SYSTEM LYMPHOCYTES 7(L) 16 - 45 % INTERFAC E SYSTEM MONOCYTES 7 3 - 13 % INTERFACE SYSTEM EOSINOPHILS 0 0 - 7 % INTERFAC E SYSTEM BASOPHILS 0 0 - 2 % INTERFACE SYSTEM NEUTROPHIL ABSOLUTE 11.79(H) 1.90 - 7.00 K/uL INTERFACE SYSTEM LYMPHOCYTE ABSOLUTE 1.00 0.70 - 4.50 K/uL INTERFACE SYSTEM MONOCYTE ABSOLUTE 0.98 0.10 - 1.30 K/uL INTERFACE SYSTEM EOSINOPHIL ABSOLUTE 0.02 0.00 - 0.70 K/uL INTERFACE SYSTEM BASOPHILS ABSOLUTE 0.03 0.00 - 0.20 K/uL INTERFACE SYSTEM 12/12/2006 4:00 AM ZINC PLATE CUTTER Catalina Jaramillo PA-C HEMATOLOGY ORDERABLES Edit ed Performing Organization Address [facility] de Phone Number INTERFACE SYSTEM Refer to clinic/hospital department * (ABNORMAL) CBC WITH DIFFERENTIAL (12/12/2006 4:00 AM ZINC PLATE CUTTER) WBC 13.8(H) 4.0 - 9.8 K/uL INTERFACE SYSTEM RBC 4.04(L) 4.50 - 5.40 M/uL INTERFACE SYSTEM HEMOGLOBIN 11.9(L) 13.6 - 16.5 g/dL INTERFACE SYSTEM HEMATOCRIT 35.0(L) 40.0 - 48.0 % INTERFACE SYSTEM MCV 86.6 82.0 - 99.0 fL INTERFACE SYSTEM MCH 29.5 27.2 - 32.6 pg INTERFACE SYSTEM MCHC 34.0 31.5 - 35.5 % INTERFACE SYSTEM RDW 13.2 11.5 - 14.5 % INTERFACE SYSTEM RDW-STDEV 42.0 37.1 - 48.7 fL INTERFACE SYSTEM PLATELETS 241 140 - 350 K/uL INTERFACE SYSTEM MPV 11.0 9.3 - 12.4 fL INTERFACE SYSTEM 12/12/2006 4:00 AM ZINC PLATE CUTTER Catalina Jaramillo PA-C HEMATOLOGY ORDERABLES Edit ed INTERFACE SYSTEM Refer to clinic/hospital department * (ABNORMAL) PT AND APTT (12/12/2006 4:00 AM ZINC PLATE CUTTER) PROTIME 15.1 12.7 - 15.1 Seconds INTERFACE SYSTEM INR 1.2(H) 0.9 - 1.1 INTERFACE SYSTEM Comment: INR Therapeutic Range: Adult: 2.0 - 3.0 for pulmonary embolism or prophylaxis against venous thrombosis or systemic embolization. 2.0 - 3.0 for patients with tissue heart valves. 2.5 - 3.5 for patients with mechanical heart valves or post HI. Pediatric (12 years and under): 1.5 - 3.0 Although the target range in children is not well established , INR values of 1.5 - 3.0 are recommended for most patients. Higher values have been used in children with prosthetic cardiac valves and hereditary clotting disorders. (<3 days) therapeutic ranges have not been established. PTT 29.2 24.4 - 36.4 Seconds INTERFACE SYSTEM Comment: PTT Therapeutic Range: Heparin Level PTT (seconds) <0.10 units/mL <53 0.10 - 0.30 units/mL 53 - 67 0.30 - 0.70 units/mL* 67 - 95* 0.70 - 1.00 units/mL 95 - 116 *corresponds to therapeutic range for unfractionated heparin 12/12/2006 4:00 AM ZINC PLATE CUTTER Catalina Jaramillo PA-C HEMATOLOGY ORDERABLES Edit ed INTERFACE SYSTEM Refer to clinic/hospital department * (ABNORMAL) COMPREHENSIVE METABOLIC PANEL (12/12/2006 4:00 AM ZINC PLATE CUTTER) GLUCOSE 142(H) 65 - 99 mg/dL INTERFACE SYSTEM CREATININE 0.74 0.67 - 1.17 mg/dL INTERFACE SYSTEM CALCIUM 7.7(L) 8.4 - 10.2 mg/dL INTERFACE SYSTEM ALKALINE PHOSPHATASE 75 40 - 129 U/L INTERFACE SYSTEM AST 46(H) 12 - 38 U/L INTERFACE SYSTEM ALT 51(H) 0 - 41 U/L INTERFACE SYSTEM TOTAL PROTEIN 6.2(L) 6.3 - 8.6 g/dL INTERFACE SYSTEM ALBUMIN 3.6 3.4 - 4.8 g/dL INTERFACE SYSTEM BILIRUBIN TOTAL 0.7 0.2 - 1.0 mg/dL INTERFACE SYSTEM BUN 17 6 - 20 mg/dL INTERFACE SYSTEM SODIUM 137 135 - 145 mmol/L INTERFACE SYSTEM POTASSIUM 4.6 3.5 - 4.9 mmol/L INTERFACE SYSTEM CHLORIDE 106 96 - 108 mmol/L INTERFACE SYSTEM CO2 23 22 - 30 mmol/L INTERFACE SYSTEM GFR, >60 >=60 mL/min/1. 7 sq meter INTERFACE SYSTEM GFR >60 >=60 mL/min/1. 7 sq meter INTERFACE SYSTEM Comment: Estimated GFR rate interpretative information for both Americans and non- Americans is available on the [facility] Intranet at: [email or web address] Select: Lab Policies and Procedures Select: Reference Ranges - GFR 12/12/2006 4:00 AM ZINC PLATE CUTTER Catalina Jaramillo PA-C CHEMISTRY ORDERABLES Edite d INTERFACE SYSTEM Refer to clinic/hospital department * MAGNESIUM LEVEL (12/12/2006 1:08 AM ZINC PLATE CUTTER) MAGNESIUM 2.2 1.5 - 2.5 mg/dL INTERFACE SYSTEM 12/12/2006 1:08 AM ZINC PLATE CUTTER Akash Lopez Jr., MD CHEMISTRY ORDERABLES Ed ited Performing Organization Address [facility] Phone Number INTERFACE SYSTEM Refer to clinic/hospital department * POTASSIUM LEVEL (12/12/2006 1:08 AM ZINC PLATE CUTTER) POTASSIUM 4.5 3.5 - 4.9 mmol/L INTERFACE SYSTEM 12/12/2006 1:08 AM ZINC PLATE CUTTER us Akash Lopez Jr., MD CHEMISTRY ORDERABLES Ed ited Performing Organization Address [facility] Phone Number INTERFACE SYSTEM Refer to clinic/hospital department * (ABNORMAL) POC GLUCOSE (12/12/2006 1:02 AM ZINC PLATE CUTTER) GLUCOSE POC 138(H) 65 - 99 mg/dL INTERFACE SYSTEM 12/12/2006 1:02 AM ZINC PLATE CUTTER us Augusto Mckeon MD POINT OF CARE TESTING Shravan stan Performing Organization Address [facility] Phone Number INTERFACE SYSTEM Refer to clinic/hospital department * (ABNORMAL) CVR ONLY, CKMB/CK (12/12/2006 1:00 AM ZINC PLATE CUTTER) CKMB 10.0(AA) <=6.7 ng/mL INTERFACE SYSTEM Comment:Results called to Eugene sanchez at 12/12/2006 1:53 AM and read back verified. CKMB INTERP See Below INTERFAC E SYSTEM Comment:Elevated CKMB,Consis tent with Myocardial Injury. CK 454(H) 10 - 170 U/L INTERFACE SYSTEM CARDIAC RELATIVE INDEX 2.2 <=4.0 INTERFACE SYSTEM 12/12/2006 1:00 AM ZINC PLATE CUTTER us Catalina Jaramillo PA-C CHEMISTRY ORDERABLES Edite d Performing Organization Address [facility] Phone Number INTERFACE SYSTEM Refer to clinic/hospital department * MAGNESIUM LEVEL (12/11/2006 9:25 PM ZINC PLATE CUTTER) MAGNESIUM 1.7 1.5 - 2.5 mg/dL INTERFACE SYSTEM 12/11/2006 9:25 PM ZINC PLATE CUTTER us Akash Lopez Jr., MD CHEMISTRY ORDERABLES Ed ited Performing Organization Address [facility] de Phone Number INTERFACE SYSTEM Refer to clinic/hospital department * POTASSIUM LEVEL (12/11/2006 9:25 PM ZINC PLATE CUTTER) POTASSIUM 3.9 3.5 - 4.9 mmol/L INTERFACE SYSTEM 12/11/2006 9:25 PM ZINC PLATE CUTTER us Akash Lopez Jr., MD CHEMISTRY ORDERABLES Ed ited Performing Organization Address [facility] Phone Number INTERFACE SYSTEM Refer to clinic/hospital department * (ABNORMAL) POC GLUCOSE (12/11/2006 7:01 PM ZINC PLATE CUTTER) GLUCOSE POC 141(H) 65 - 99 mg/dL INTERFACE SYSTEM 12/11/2006 7:01 PM ZINC PLATE CUTTER us Augusto Mckeon MD POINT OF CARE TESTING Shravan stan Performing Organization Address [facility] de Phone Number INTERFACE SYSTEM Refer to clinic/hospital department * (ABNORMAL) POC RT, BLOOD GASES (12/11/2006 5:21 PM ZINC PLATE CUTTER) PH ARTERIAL 7.39 7.35 - 7.45 INTERFACE SYSTEM PCO2 ARTERIAL 40 35 - 48 mm Hg INTERFACE SYSTEM PO2 ARTERIAL 336(H) 83 - 108 mm Hg INTERFACE SYSTEM O2 SAT EST ABG POC 100(H) 95 - 99 % INTERFACE SYSTEM PATIENT'S TEMPERATURE 37.0 Degree C INTERFACE SYSTEM BASE EXCESS ABG -0.7 -2.0 - 3.0 mmol/L INTERFACE SYSTEM HCO3 ARTERIAL 24 22 - 26 mmol/L INTERFACE SYSTEM SODIUM POC 136 135 - 145 mmol/L INTERFACE SYSTEM POTASSIUM POC 3.9 3.5 - 4.9 mmol/L INTERFACE SYSTEM CALICUM IONIZED, WHOLE BLOOD 4.45(L) 4.76 - 5.16 mg/dL INTERFACE SYSTEM HEMATOCRIT POC 39.0(L) 40.0 - 48.0 % INTERFACE SYSTEM FIO2 100 INTERFACE SYSTEM OXYGEN MODE SIMV/PSV8 INTERFAC E SYSTEM PEEP POC 5 INTERFACE SYSTEM COMMENT, GASES POC RN NOTIFIED INTERFACE SYSTEM 12/11/2006 5:21 PM ZINC PLATE CUTTER Augusto Mckeon MD CHEMISTRY ORDERABLES Edit ed Performing Organization Address [facility] de Phone Number INTERFACE SYSTEM Refer to clinic/hospital department * CVR ONLY, CKMB/CK (12/11/2006 4:59 PM ZINC PLATE CUTTER) CKMB 3.0 <=6.7 ng/mL INTERFACE SYSTEM CKMB INTERP Negative INTERFAC E SYSTEM CK 113 10 - 170 U/L INTERFACE SYSTEM CARDIAC RELATIVE INDEX N/A <=4.0 INTERFACE SYSTEM 12/11/2006 4:59 PM ZINC PLATE CUTTER Catalina Jaramillo PA-C CHEMISTRY ORDERABLES Edite d Performing Organization Address [facility] Phone Number INTERFACE SYSTEM Refer to clinic/hospital department * (ABNORMAL) CBC WITH DIFFERENTIAL (12/11/2006 4:59 PM ZINC PLATE CUTTER) NEUTROPHILS 76(H) 45 - 70 % INTERFAC E SYSTEM LYMPHOCYTES 16 16 - 45 % INTERFAC E SYSTEM MONOCYTES 5 3 - 13 % INTERFACE SYSTEM EOSINOPHILS 2 0 - 7 % INTERFAC E SYSTEM BASOPHILS 0 0 - 2 % INTERFACE SYSTEM NEUTROPHIL ABSOLUTE 17.82(H) 1.90 - 7.00 K/uL INTERFACE SYSTEM LYMPHOCYTE ABSOLUTE 3.63 0.70 - 4.50 K/uL INTERFACE SYSTEM MONOCYTE ABSOLUTE 1.27 0.10 - 1.30 K/uL INTERFACE SYSTEM EOSINOPHIL ABSOLUTE 0.56 0.00 - 0.70 K/uL INTERFACE SYSTEM BASOPHILS ABSOLUTE 0.04 0.00 - 0.20 K/uL INTERFACE SYSTEM 12/11/2006 4:59 PM ZINC PLATE CUTTER Result [facility] Catalina Jaramillo PA-C HEMATOLOGY ORDERABLES Edit ed Performing Organization Address [facility] de Phone Number INTERFACE SYSTEM Refer to clinic/hospital department * (ABNORMAL) CBC WITH DIFFERENTIAL (12/11/2006 4:59 PM ZINC PLATE CUTTER) WBC 23.3(H) 4.0 - 9.8 K/uL INTERFACE SYSTEM RBC 4.28(L) 4.50 - 5.40 M/uL INTERFACE SYSTEM HEMOGLOBIN 12.8(L) 13.6 - 16.5 g/dL INTERFACE SYSTEM HEMATOCRIT 36.8(L) 40.0 - 48.0 % INTERFACE SYSTEM MCV 86.0 82.0 - 99.0 fL INTERFACE SYSTEM MCH 29.9 27.2 - 32.6 pg INTERFACE SYSTEM MCHC 34.8 31.5 - 35.5 % INTERFACE SYSTEM RDW 13.0 11.5 - 14.5 % INTERFACE SYSTEM RDW-STDEV 40.7 37.1 - 48.7 fL INTERFACE SYSTEM PLATELETS 246 140 - 350 K/uL INTERFACE SYSTEM MPV 10.5 9.3 - 12.4 fL INTERFACE SYSTEM 12/11/2006 4:59 PM ZINC PLATE CUTTER Catalina Jaramillo PA-C HEMATOLOGY ORDERABLES Edit ed INTERFACE SYSTEM Refer to clinic/hospital department * (ABNORMAL) PT AND APTT (12/11/2006 4:59 PM ZINC PLATE CUTTER) PROTIME 15.1 12.7 - 15.1 Seconds INTERFACE SYSTEM INR 1.2(H) 0.9 - 1.1 INTERFACE SYSTEM Comment: INR Therapeutic Range: Adult: 2.0 - 3.0 for pulmonary embolism or prophylaxis against venous thrombosis or systemic embolization. 2.0 - 3.0 for patients with tissue heart valves. 2.5 - 3.5 for patients with mechanical heart valves or post HI. Pediatric (12 years and under): 1.5 - 3.0 Although the target range in children is not well established , INR values of 1.5 - 3.0 are recommended for most patients. Higher values have been used in children with prosthetic cardiac valves and hereditary clotting disorders. (<3 days) therapeutic ranges have not been established. PTT 29.3 24.4 - 36.4 Seconds INTERFACE SYSTEM Comment: PTT Therapeutic Range: Heparin Level PTT (seconds) <0.10 units/mL <53 0.10 - 0.30 units/mL 53 - 67 0.30 - 0.70 units/mL* 67 - 95* 0.70 - 1.00 units/mL 95 - 116 *corresponds to therapeutic range for unfractionated heparin 12/11/2006 4:59 PM ZINC PLATE CUTTER Catalina Jaramillo PA-C HEMATOLOGY ORDERABLES Edit ed Performing Organization Address [facility] Phone Number INTERFACE SYSTEM Refer to clinic/hospital department * MAGNESIUM LEVEL (12/11/2006 4:59 PM ZINC PLATE CUTTER) MAGNESIUM 1.9 1.5 - 2.5 mg/dL INTERFACE SYSTEM 12/11/2006 4:59 PM ZINC PLATE CUTTER Catalina Jaramillo PA-C CHEMISTRY ORDERABLES Edite d Performing Organization Address [facility] Phone Number INTERFACE SYSTEM Refer to clinic/hospital department * (ABNORMAL) BASIC METABOLIC PANEL (12/11/2006 4:59 PM ZINC PLATE CUTTER) GLUCOSE 122(H) 65 - 99 mg/dL INTERFACE SYSTEM CREATININE 0.67 0.67 - 1.17 mg/dL INTERFACE SYSTEM CALCIUM 8.6 8.4 - 10.2 mg/dL INTERFACE SYSTEM BUN 15 6 - 20 mg/dL INTERFACE SYSTEM SODIUM 141 135 - 145 mmol/L INTERFACE SYSTEM POTASSIUM 4.1 3.5 - 4.9 mmol/L INTERFACE SYSTEM CHLORIDE 108 96 - 108 mmol/L INTERFACE SYSTEM CO2 24 22 - 30 mmol/L INTERFACE SYSTEM GFR, >60 >=60 mL/min/1. 7 sq meter INTERFACE SYSTEM GFR >60 >=60 mL/min/1. 7 sq meter INTERFACE SYSTEM Comment: Estimated GFR rate interpretative information for both Americans and non- Americans is available on the [facility] Intranet at: [email or web address] Select: Lab Policies and Procedures Select: Reference Ranges - GFR 12/11/2006 4:59 PM ZINC PLATE CUTTER Catalina Jaramillo PA-C CHEMISTRY ORDERABLES Edite d Performing Organization Address [facility]/ZIP Co de Phone Number INTERFACE SYSTEM Refer to clinic/hospital department * (ABNORMAL) POC RT, BLOOD GASES (12/11/2006 3:23 PM ZINC PLATE CUTTER) PH ARTERIAL 7.42 7.35 - 7.45 INTERF WENDY SYSTEM PCO2 ARTERIAL 41 35 - 48 mm Hg INTERFACE SYSTEM PO2 ARTERIAL 269(H) 83 - 108 mm Hg INTERFACE SYSTEM O2 SAT EST ABG POC 100(H) 95 - 99 % INTERFACE SYSTEM PATIENT'S TEMPERATURE 37.0 Degree C INTERFACE SYSTEM BASE EXCESS ABG 1.9 -2.0 - 3.0 mmol/L INTERFACE SYSTEM HCO3 ARTERIAL 27(H) 22 - 26 mmol/L INTERFACE SYSTEM SODIUM POC 137 135 - 145 mmol/L INTERFACE SYSTEM POTASSIUM POC 4.1 3.5 - 4.9 mmol/L INTERFACE SYSTEM CALICUM IONIZED, WHOLE BLOOD 4.49(L) 4.76 - 5.16 mg/dL INTERFACE SYSTEM HEMATOCRIT POC 38.0(L) 40.0 - 48.0 % INTERFACE SYSTEM TCO2, ABG POC 28(H) 19 - 24 mmol/L INTERFACE SYSTEM LACTIC ACID 0.9 0.5 - 2.2 mmol/L INTERFACE SYSTEM GLUCOSE POC 104(H) 65 - 99 mg/dL INTERFACE SYSTEM 12/11/2006 3:23 PM ZINC PLATE CUTTER us Augusto Mckeon MD CHEMISTRY ORDERABLES Edit ed INTERFACE SYSTEM Refer to clinic/hospital department * (ABNORMAL) POC RT, BLOOD GASES (12/11/2006 1:11 PM ZINC PLATE CUTTER) PH ARTERIAL 7.41 7.35 - 7.45 INTERFACE SYSTEM PCO2 ARTERIAL 44 35 - 48 mm Hg INTERFACE SYSTEM PO2 ARTERIAL 359(H) 83 - 108 mm Hg INTERFACE SYSTEM O2 SAT EST ABG POC 100(H) 95 - 99 % INTERFACE SYSTEM PATIENT'S TEMPERATURE 37.0 Degree C INTERFACE SYSTEM BASE EXCESS ABG 2.8 -2.0 - 3.0 mmol/L INTERFACE SYSTEM HCO3 ARTERIAL 28(H) 22 - 26 mmol/L INTERFACE SYSTEM SODIUM POC 136 135 - 145 mmol/L INTERFACE SYSTEM POTASSIUM POC 3.9 3.5 - 4.9 mmol/L INTERFACE SYSTEM CALICUM IONIZED, WHOLE BLOOD 4.53(L) 4.76 - 5.16 mg/dL INTERFACE SYSTEM HEMATOCRIT POC 39.0(L) 40.0 - 48.0 % INTERFACE SYSTEM COMMENT, GASES POC POST INDUCTION INTERFACE SYSTEM TCO2, ABG POC 29(H) 19 - 24 mmol/L INTERFACE SYSTEM LACTIC ACID 0.7 0.5 - 2.2 mmol/L INTERFACE SYSTEM GLUCOSE POC 96 65 - 99 mg/dL INTERFACE SYSTEM 12/11/2006 1:11 PM ZINC PLATE CUTTER us Augusto Mckeon MD CHEMISTRY ORDERABLES Edit ed Performing Organization Address [facility] Phone Number INTERFACE SYSTEM Refer to clinic/hospital department * URINALYSIS (12/11/2006 1:50 AM ZINC PLATE CUTTER) COLOR UA Yellow INTERFACE SYSTEM CLARITY UA Clear Clear INTERFACE SYSTEM SPECIFIC GRAVITY UA 1.024 1.001 - 1.035 INTERFACE SYSTEM PH UA 6.5 5.0 - 8.0 INTERFACE SYSTEM LEUKOCYTE ESTERASE UA Negative Negative INTERFACE SYSTEM NITRITE UA Negative Negative INTERFACE SYSTEM PROTEIN UA Negative Negative INTERFACE SYSTEM GLUCOSE UA Negative Negative INTERFACE SYSTEM KETONES UA Negative Negative INTERFACE SYSTEM UROBILINOGEN UA <1 <=1 mg/dL INTE RFACE SYSTEM BILIRUBIN UA Negative Negative INTERFA CE SYSTEM BLOOD UA Negative Negative INTERFACE SYSTEM 12/11/2006 1:50 AM ZINC PLATE CUTTER us Akash Lopez Jr., MD URINE ORDERABLES Edited Performing Organization Address [facility] Phone Number INTERFACE SYSTEM Refer to clinic/hospital department * (ABNORMAL) COMPREHENSIVE METABOLIC PANEL (12/10/2006 8:00 PM ZINC PLATE CUTTER) GLUCOSE 99 65 - 99 mg/dL INTERFACE SYSTEM CREATININE 0.61(L) 0.67 - 1.17 mg/dL INTERFACE SYSTEM CALCIUM 8.9 8.4 - 10.2 mg/dL INTERFACE SYSTEM ALKALINE PHOSPHATASE 85 40 - 129 U/L INTERFACE SYSTEM AST 38 12 - 38 U/L INTERFACE SYSTEM ALT 58(H) 0 - 41 U/L INTERFACE SYSTEM TOTAL PROTEIN 7.1 6.3 - 8.6 g/dL INTERFACE SYSTEM ALBUMIN 4.2 3.4 - 4.8 g/dL INTERFACE SYSTEM BILIRUBIN TOTAL 0.8 0.2 - 1.0 mg/dL INTERFACE SYSTEM BUN 15 6 - 20 mg/dL INTERFACE SYSTEM SODIUM 140 135 - 145 mmol/L INTERFACE SYSTEM POTASSIUM 3.7 3.5 - 4.9 mmol/L INTERFACE SYSTEM CHLORIDE 104 96 - 108 mmol/L INTERFACE SYSTEM CO2 26 22 - 30 mmol/L INTERFACE SYSTEM GFR, >60 >=60 mL/min/1. 7 sq meter INTERFACE SYSTEM GFR >60 >=60 mL/min/1. 7 sq meter INTERFACE SYSTEM Comment: Estimated GFR rate interpretative information for both Americans and non- Americans is available on the [facility] Intranet at: [email or web address] Select: Lab Policies and Procedures Select: Reference Ranges - GFR 12/10/2006 8:00 PM ZINC PLATE CUTTER us Akash Lopez Jr., MD CHEMISTRY ORDERABLES Ed ited Performing Organization Address [facility] Co de Phone Number INTERFACE SYSTEM Refer to clinic/hospital department * POC ACTIVATED CLOTTING TIME (12/10/2006 7:56 PM ZINC PLATE CUTTER) ACT POC 119 Seconds INTERFACE SYSTEM Comment: Note sheath pull range change effective 05/17/2006. ACT value for sheath pull at [facility] has been established to be < or = to 1 40. (See also Nursing Procedures for sheath pull in related nursing areas) 12/10/2006 7:56 PM ZINC PLATE CUTTER us Augusto Mckeon MD POINT OF CARE TESTING Shravan stan Performing Organization Address [facility] de Phone Number INTERFACE SYSTEM Refer to clinic/hospital department documented in this encounter Visit Diagnoses Diagnosis Coronary atherosclerosis of [place] coronary artery- Primary documented in this encounter Care Teams Exceptional Children'S Teacher Relationship Specialty Start Date End Date Danish Ramírez MD [address] [place] [address] PCP - General 12/10/06 documented as of this encounter
--- OUTSIDE RECORDS SUMMARY | 2025-01-07 15:51 | XMS_ITS | Encounter Summary ---
Author Organization [facility] Address 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
--- OUTSIDE RECORDS SUMMARY | 2025-01-07 15:51 | XMS_ITS | Encounter Summary ---
Author Organization [facility] Address [address] [place] [address] Care Team Providers Care Track Laying Machine Operator Name Role Phone Danish Ramírez MD Primary Care Provider Encounter Details Date Type Department Care Team (Late st Contact Info) Description 12/11/2006 Outpatient Historical [facility] Support Serv. (Adt Cardiology-[facility]) [address] 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
--- OUTSIDE RECORDS SUMMARY | 2025-01-07 15:51 | XMS_ITS | Encounter Summary ---
Author Organization [facility] Address [address] [place] [address] Care Team Providers Care Journeyman Pipe Fitter Name Role Phone Danish Ramírez MD Primary Care Provider [phone] Encounter Details Date Type Department Care Team (Late st Contact Info) Description 2006 Outpatient Historical [facility] Support Serv. (Adt Cardiology-[facility]) [address] 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
--- OUTSIDE RECORDS SUMMARY | 2025-01-07 15:51 | XMS_ITS | Clinical Summary ---
Author Organization [facility] Address [facility] [place] [address] Care Team Providers Care Information Technology Specialist Name Role Phone None, Provider MD Primary Care Provider Unavaila ble Social History Tobacco Use Types Packs/Day Years Used Date Smoking Tobacco: Never Assessed Sex and Gender Information Value Date Recorded Sex Assigned at Not on file Legal Sex Male 7:32 AM CDT Gender Identity Not on file Sexual Orientation Not on file Plan of Treatment Health Maintenance Due Date Last Done Comments Colorectal Cancer Screening Colonoscopy (10 Years) 1950 Hepatitis C 1969 DTaP, Tdap and Td Vaccines ( 1 - Tdap) 1970 Zoster Vaccines (1 of 2) 2001 Annual Medicare Wellness Visit 2016 Pneumococcal Vaccine: 65+ Ye ars (1 of 1 - PCV) 2016 COVID-19 Vaccine ( - 2023-2 5 season) 2024 Influenza Adult (#1) 2024 RSV Immunization or 60+ Years (1 - 1-dose 75+ series) 2026 Meningococcal B Vaccine Aged Out No l onger eligible based on patient's age to complete this topic Meningococcal Vaccine Aged Out No gurwinder mary eligible based on patient's age to complete this topic RSV Immunizations Under 20 Months Aged Out No longer eligible based on patient's age to complete this topic Additional Health Concerns Infection Onset Date 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
--- OUTSIDE RECORDS SUMMARY | 2025-01-07 15:51 | XMS_ITS | Clinical Summary ---
Author Organization [facility] [address] Address [address] [place] [address] Care Team Providers Care Link Trainer Name Role Phone Sandy Bragg MD Unavailable [phone] Walker Breen MD Primary Care Provider Allergies No known active allergies Medications rivaroxaban (XARELTO) 20 mg tablet Take 1 tablet (20 mg total) by mouth daily Active aspirin 81 mg enteric coated tablet Take 1 tablet (81 mg total) by mouth daily Active levothyroxine (SYNTHROID) 200 mcg tablet Take 1 tablet (200 mcg total) by mouth daily 08/31/20 21 Active rosuvastatin (CRESTOR) 20 mg tabletIndicatio ns:Coronary artery disease involving chitimacha coronary artery of chitimacha heart without angina pectoris Take 1 tablet [...] obesity 11/09/2024 Aneurysm of infrarenal abdominal aorta Paroxysmal atrial fibrillation (CMS/HCC) 018 Essential hypertension [...] Date Acute respiratory failure wi th hypoxia ([facility]) 12/16/2018 05/02/2020 Angina pectoris, unstable ([facility]) 12/11/2018 05/02/2020 Overview (12/11/2018): Added automatically from request for surgery [id number] PAC (premature atrial contraction) 08/18/2018 03/19/2022 Assessment [...] as well to help him lose weight. Encounters Date Type Department Care Team Description 12/29/2024 8:27 AM PRESCHOOL PARAPROFESSIONAL Anesthesia Event [facility] Cardiac Catheterization Lab [address] [place] [address] Hermilo Alanis MD Eldin, Ali S., MD 12/29/2024 8:00 AM PRESCHOOL PARAPROFESSIONAL - 12/29/2024 9:30 AM PRESCHOOL PARAPROFESSIONAL Surgery [facility] Cardiac Catheterization Lab [address] [place] [address] Moreno Lam MD LEFT HEART CATHETERIZATION WITH CORONARY ANGIOGRAPHY GRAFT AND WITH OR WITHOUT LEFT VENTRICULOGRAM [id number] 12/29/2024 5:54 AM PRESCHOOL PARAPROFESSIONAL - 12/30/2024 2:00 PM PRESCHOOL PARAPROFESSIONAL Hospital Encounter [address] [address] Moreno Lam MD Coronary artery disease involving chitimacha coronary artery of chitimacha heart without angina pectoris; Chest pain, unspecified type Discharge Disposition: Discharge to home or self care 2024 8:30 AM PRESCHOOL PARAPROFESSIONAL Office Visit [facility] Cardiology [address] [facility] [address] [place] [phone] Moreno Lam MD Paroxysmal atrial fibrillation (CMS/HCC) (HCC) (Primary Dx); Essential hypertension; Coronary artery disease involving chitimacha coronary artery of chitimacha heart without angina pectoris; Infrarenal abdominal aortic aneurysm (AAA) without rupture (HCC); Localized edema 2024 Telephone [facility] [address] [facility] [address] [place] [phone] Moreno Lam MD 11/16/2024 10:15 AM PRESCHOOL PARAPROFESSIONAL Ancillary Procedure [facility] Cardiology [address] [place] [phone] Coronary artery disease involving chitimacha coronary artery of chitimacha heart without angina pectoris; Paroxysmal atrial fibrillation (CMS/HCC) (HCC); Essential hypertension 11/09/2024 9:00 AM PRESCHOOL PARAPROFESSIONAL Office Visit [facility] Cardiology [address] [place] [phone] Moreno Lam MD Coronary artery disease involving chitimacha coronary artery of chitimacha heart without angina pectoris (Primary Dx); Paroxysmal atrial fibrillation (CMS/HCC) (HCC); Essential hypertension; Localized edema; Infrarenal abdominal aortic aneurysm (AAA) without rupture (HCC); Severe obesity (HCC) from Last 3 Months Surgical History Surgery Date Site/Laterality Comments CORONARY ANGIOPLASTY CORONARY ARTERY BYPASS GRAFT 11/25/2006 - 11/24/2007 ESOPHAGOGASTRODUODENOSCOPY CARDIAC CATHETERIZATION CARDIAC CATHETERIZATION 12/29/2024 N/A Procedure: LEFT HEART CATHETERIZATION WITH CORONARY ANGIOGRAPHY GRAFT AND WITH OR WITHOUT LEFT VENTRICULOGRAM [id number]; Surgeon: Moreno Lam MD; Location: CARDIAC COLLISION WORKER; Service: Cardiovascular; Laterality: N/A; Medical devices from this surgery are in the Medical Devices section. CARDIAC CATHETERIZATION 12/29/2024 N/A Procedure: IVUS/OCT CORS OR GRAFTS, FIRST VESSEL (+) [id number]; Surgeon: Moreno Lam MD; Location: CARDIAC COLLISION WORKER; Service: Cardiovascular; Laterality: N/A; Medical devices from this surgery are in the Medical Devices section. Medical History Medical History Date Comments Adiposity Obesity Hx Other Medical DJD Hypertension Thyroid disease Coronary artery disease Atrial fibrillation (CMS/HCC) (HCC) Arthritis Dyspnea on exertion Chest tightness Hypothyroidism Family History Medical History Relation Name Comments Heart failure Father Liver cancer Mother No Known Problems Sister Relation Name Status Comments Father (Age 70) Mother (Age 59) Sister Alive Social History Tobacco Use Types Packs/Day Years [...] on file Legal Sex Male 6:48 PM PRESCHOOL PARAPROFESSIONAL Gender Identity Not on file Sexual Orientation Not on file Obstetrics History Last Filed Vital Signs Vital Sign Reading Time Taken Comments Blood Pressure 139/57 12/30/2024 8:17 AM PRESCHOOL PARAPROFESSIONAL Pulse 65 12/30/2024 9:29 AM PRESCHOOL PARAPROFESSIONAL Temperature 36.7 C (98 F) 12/30/2024 8:17 AM PRESCHOOL PARAPROFESSIONAL Respiratory Rate 16 12/30/2024 8:17 AM PRESCHOOL PARAPROFESSIONAL Oxygen Saturation 100% 12/30/2024 8:17 AM PRESCHOOL PARAPROFESSIONAL Inhaled Oxygen Concentration - - Weight 116.8 kg (257 lb 8 oz) 12/29/2024 6:55 AM PRESCHOOL PARAPROFESSIONAL Height 165.1 cm (5' 5 ) 12/29/2024 6:55 AM PRESCHOOL PARAPROFESSIONAL Body Mass Index 42.85 12/29/2024 6:55 AM PRESCHOOL PARAPROFESSIONAL Plan of Treatment Health Maintenance Due Date Last Done Comments Colon Cancer Screening-Colonoscopy 1950 Depression Screening 1950 Hepatitis C Screening 1950 DTaP/Tdap/Td Vaccine (1 - Tdap) 1962 Hepatitis B Screening 1969 Zoster Vaccine (1 of 2) 2001 Pneumococcal vaccine 65+ (1 of 1 - PCV) 2016 Well Visit 65+ 2016 Influenza Vaccine (#1) 2024 Fall Risk Assessment 12/30/2025 12/30/2024, 09/11/2021, 05/02/2020 Abdominal Aortic Aneurysm (A AA) Screen Completed 2024, 11/09/2024, 11/04/2023, Additional history exists Medical Devices Implanted Type Area Drill Operator Automatic Device Identifier Shelf Expiration Date Model / Serial / Lot [employer] [id number] Xience Alpine 3.25mm 23mm 145cm Rapid Exchange Radiopaque 1 - [id number] Implanted:Qty: 1 on 12/16/2018 by Moreno Lam MD at [facility] [employer] 03/09/2021 1 [id number] / / [id number] [employer] [id number] Angio-Seal Vip Bondek-Plus 6fr .035in 70cm Hemostatic Latex Free - [id number] Implanted:Qty: 1 on 12/16/2018 by Moreno Lam MD at [facility] 08/24/2019 [id number] / / [id number] [employer] Device Vascular Closure Femoral Artery Bioabsorbable Dual Method Vascade 6-7fr Collagen [id number] - [id number] Implanted:Qty: 1 on 12/29/2024 by Moreno Lam MD at [facility] [employer] 05/26/2026 [id number] / / [id number] Procedures Procedure Name Priority Date/Time Associated Diagnosis Comments EGFR Routine 12/30/2024 12:25 PM PRESCHOOL PARAPROFESSIONAL BASIC METABOLIC PANEL Routine 12/30/2024 12:25 PM PRESCHOOL PARAPROFESSIONAL EGFR Routine 12/30/2024 11:44 AM PRESCHOOL PARAPROFESSIONAL DIFFERENTIAL AUTO Routine 12/30/2024 11: 44 AM PRESCHOOL PARAPROFESSIONAL CBC WITH AUTO DIFFERENTIAL Routine 12/30/2024 11:44 AM PRESCHOOL PARAPROFESSIONAL BASIC METABOLIC PANEL Routine 12/30/2024 11:44 AM PRESCHOOL PARAPROFESSIONAL ANGIOPLASTY BALLOON PERCUTANEOUS Routine 12/29/2024 10:26 AM PRESCHOOL PARAPROFESSIONAL Coronary artery disease involving chitimacha coronary artery of chitimacha heart without angina pectoris Chest pain, unspecified type CORONARY OCT, 1ST VESSEL Routine 12/29/2024 10:26 AM PRESCHOOL PARAPROFESSIONAL Coronary artery disease involving chitimacha coronary artery of chitimacha heart without angina pectoris Chest pain, unspecified type LEFT HEART CATHETERIZATION WITH CORONARY ANGIOGRAPHY GRAFT AND LEFT VENTRICULOGRAM Routine 12/29/2024 10:26 AM PRESCHOOL PARAPROFESSIONAL Coronary artery disease involving chitimacha coronary artery of chitimacha heart without angina pectoris Chest pain, unspecified type POCT ACTIVATED CLOTTING TIME, HIGH RANGE Routine 12/29/2024 10:07 AM PRESCHOOL PARAPROFESSIONAL POCT ACTIVATED CLOTTING TIME, HIGH RANGE Routine 12/29/2024 9:40 AM PRESCHOOL PARAPROFESSIONAL EGFR Routine 12/29/2024 6:45 AM PRESCHOOL PARAPROFESSIONAL DIFFERENTIAL AUTO Routine 12/29/2024 6:4 5 AM PRESCHOOL PARAPROFESSIONAL CBC WITH AUTO DIFFERENTIAL Routine 12/29/2024 6:45 AM PRESCHOOL PARAPROFESSIONAL BASIC METABOLIC PANEL Routine 12/29/2024 6:45 AM PRESCHOOL PARAPROFESSIONAL ECG 12-LEAD Routine 2024 3:34 PM PRESCHOOL PARAPROFESSIONAL Paroxysmal atrial fibrillation (CMS/HCC) (HCC) POCT LIPID PANEL Routine 2024 9:39 AM PRESCHOOL PARAPROFESSIONAL Essential hypertension TRANSTHORACIC ECHO (TTE) COMPLETE W DOPPLER/CF WO CONTRAST Routine 11/16/2024 11:06 AM PRESCHOOL PARAPROFESSIONAL Coronary artery disease involving chitimacha coronary artery of chitimacha heart without angina pectoris Paroxysmal atrial fibrillation (CMS/HCC) (HCC) Essential hypertension POCT LIPID PANEL Routine 11/09/2024 9:44 AM PRESCHOOL PARAPROFESSIONAL Essential hypertension from Last 3 Months Results * eGFR (12/30/2024 12:25 PM PRESCHOOL PARAPROFESSIONAL) eGFR 90 >=60 mL/min/1. 73 m2 Comment: [...] reviewed 2021. Blood 12/30/2024 12:2 5 PM PRESCHOOL PARAPROFESSIONAL 12/30/2024 12:25 PM PRESCHOOL PARAPROFESSIONAL Moreno Lam MD LAB BLOOD ORDERABLES Final Result Performing Organization Address City/[facility] Co de Phone Number [facility] [address] [place] [address] * Basic metabolic panel (12/30/2024 12:25 PM PRESCHOOL PARAPROFESSIONAL) Sodium 140 135 - 145 mmol/L Potassium, pl 4.5 3.3 - 4.9 mmol/L [facility] Chloride 105 97 - 110 mmol/L [facility] CH CO2 25 22 - 32 mmol/L [facility] Anion gap 10 2 - 15 mmol/L [facility] BUN 25 6 - 25 mg/dL [facility] Creatinine 0.90 0.80 - 1.30 mg/dL [facility] Glucose 92 70 - 199 mg/dL [facility] Comment: Interpretive Data Fasting glucose >/= [...] 2022. Calcium 9.2 8.5 - 10.3 mg/dL [facility] Blood 12/30/2024 12:2 5 PM PRESCHOOL PARAPROFESSIONAL 12/30/2024 12:25 PM PRESCHOOL PARAPROFESSIONAL Moreno Lam MD LAB BLOOD ORDERABLES Final Result Performing Organization Address City/[facility]/ZIP Co de Phone Number [facility] [address] [facility] [place] [address] * eGFR (12/30/2024 11:44 AM PRESCHOOL PARAPROFESSIONAL) eGFR 88 >=60 mL/min/1. 73 m2 Comment: [...] reviewed 2021. Blood 12/30/2024 11:4 4 AM PRESCHOOL PARAPROFESSIONAL 12/30/2024 12:24 PM PRESCHOOL PARAPROFESSIONAL us Moreno Lam MD LAB BLOOD ORDERABLES Final Result [facility] [address] Department [place] [address] * (ABNORMAL) Differential, auto (12/30/2024 11:44 AM PRESCHOOL PARAPROFESSIONAL) Pathologist [facility] Neutrophil abs 6.8(H) 1.5 - 6.5 K/cumm Imm gran abs 0.0 0.0 - 0.1 K/cumm [facility] Lymphocyte abs 1.6 0.8 - 3.3 K/cumm [facility] Monocyte abs 0.8 0.2 - 0.8 K/cumm [facility] Eosinophil abs 0.3 0.0 - 0.5 K/cumm [facility] Basophil abs 0.1 0.0 - 0.1 K/cumm [facility] Neutrophil pct 71.5 % [facility] Comment: Interpretive Data Percent cell count reference ranges are not reported, since discordance with absolute values may lead to misinterpretation of CBC data. Current Interpretive Data was last revised on 2018. Imm gran pct 0.4 % [facility] Comment: Interpretive Data Percent cell count reference ranges are not reported, since discordance with absolute values may lead to misinterpretation of CBC data. Current Interpretive Data was last revised on 2018. Lymphocyte pct 16.6 % [facility] Comment: Interpretive Data Percent cell count reference ranges are not reported, since discordance with absolute values may lead to misinterpretation of CBC data. Current Interpretive Data was last revised on 2018. Monocyte pct 8.2 % [facility] Comment: Interpretive Data Percent cell count reference ranges are not reported, since discordance with absolute values may lead to misinterpretation of CBC data. Current Interpretive Data was last revised on 2018. Eosinophil pct 2.6 % [facility] Comment: Interpretive Data Percent cell count reference ranges are not reported, since discordance with absolute values may lead to misinterpretation of CBC data. Current Interpretive Data was last revised on 2018. Basophil pct 0.7 % [facility] Comment: Interpretive Data Percent cell count reference ranges are not reported, since discordance with absolute values may lead to misinterpretation of CBC data. Current Interpretive Data was last revised on 2018. Blood 12/30/2024 11:4 4 AM PRESCHOOL PARAPROFESSIONAL 12/30/2024 12:24 PM PRESCHOOL PARAPROFESSIONAL us Moreno Lam MD LAB BLOOD ORDERABLES Final Result [facility] [id number] Department [place] [address] * (ABNORMAL) CBC with auto differential (12/30/2024 11:44 AM PRESCHOOL PARAPROFESSIONAL) WBC 9.5 3.8 - 9.9 K/cumm Hgb 10.9(L) 13.0 - 17.5 g/dL [facility] Hct 33.5(L) 38.9 - 50.3 % [facility] Plt 253 150 - 400 K/cumm [facility] MPV 10.2 9.1 - 12.3 fL [facility] RBC 3.53(L) 4.30 - 5.80 M/cumm [facility] MCV 94.9 81.3 - 96.4 fL [facility] MCH 30.9 27.1 - 33.3 pg [facility] MCHC 32.5 32.3 - 35.7 g/dL [facility] RDW CV 13.2 11.1 - 14.9 % [facility] RDW SD 45.6 35.7 - 48.1 fL [facility] NRBC abs 0.00 0.00 - 0.01 K/cumm [facility] Blood 12/30/2024 11:4 4 AM PRESCHOOL PARAPROFESSIONAL 12/30/2024 12:24 PM PRESCHOOL PARAPROFESSIONAL Narrative [facility] - 12/30/2024 12:37 PM PRESCHOOL PARAPROFESSIONAL If most recent labs were drawn prior to 4 AM, draw only prior to initiating procedure. Moreno Lam MD LAB BLOOD ORDERABLES Final Result [facility] [address] Department [place] [address] * Basic metabolic panel (12/30/2024 11:44 AM PRESCHOOL PARAPROFESSIONAL) Sodium 137 135 - 145 mmol/L Potassium, pl 4.4 3.3 - 4.9 mmol/L [facility] Chloride 104 97 - 110 mmol/L [facility] CO2 25 22 - 32 mmol/L [facility] Anion gap 8 2 - 15 mmol/L [facility] BUN 25 6 - 25 mg/dL [facility] Creatinine 0.92 0.80 - 1.30 mg/dL [facility] Glucose 94 70 - 199 mg/dL [facility] Comment: Interpretive Data Fasting glucose >/= [...] [facility] Blood 12/30/2024 11:4 4 AM PRESCHOOL PARAPROFESSIONAL 12/30/2024 12:24 PM PRESCHOOL PARAPROFESSIONAL us Moreno Lam MD LAB BLOOD ORDERABLES Final Result [facility] [address] [facility] Department [place] [address] * LEFT HEART CATHETERIZATION WITH CORONARY ANGIOGRAPHY GRAFT AND LEFT VENTRICULOGRAM, CORONARY OCT, 1ST VESSEL, ANGIOPLASTY BALLOON PERCUTANEOUS (12/29/2024 10:26 AM PRESCHOOL PARAPROFESSIONAL) Anatomical Region Laterality Modality X-Ray Angiograph y Narrative 12/29/2024 10:53 AM PRESCHOOL PARAPROFESSIONAL CARDIAC CATHETERIZATION REPORT Rae Alvarado IP ENCOUNTER: @CSN@ Date of Procedure: 12/29/2024 BIRTHDATE: 1950 [employer] SUPERVISOR: Moreno Lam MD PREPROCEDURE DIAGNOSES: This 74-year-old [...] Right common femoral arterial angiogram. Deployment 6 Setswana Vascade closure device. FINDINGS: Left main minimal [...] informed consent patient was brought into the sleep lab technologist where she was draped and prepped in the usual manner. Moderate sedation was given and the right groin infiltrated using 1% lidocaine. Five Setswana sheath was obtained using micropuncture needle and [...] REMY angiogram was done. After that 5 Setswana pigtail catheter was advanced across aortic valve into the left ventricular with measurement of LVEDP and measure gradient across aortic valve. Right common femoral arterial angiogram was done and deployed 6 Setswana Vascade closure device. INTERVENTION Left main was engaged using 6 Setswana guide catheter CLS 3.5. Heparin was administered. [...] site: Right common femoral artery. Hemostasis: 6 Setswana Vascade closure device. CONCLUSIONS InStent restenosis of the left circumflex artery stent with the mechanism thought to be related to under expansion. Re-expansion of the stent using 3.5 mm noncompliant balloon. Patent REMY to LAD and ANTIONE to RCA PLAN Will add Plavix to his aspirin and Xarelto. Plavix to be taken for a month. us Moreno Lam MD CV CARDIAC CATH PROC EDURES Final Result * (ABNORMAL) POC Activated Clotting Time, High Range (12/29/2024 10:07 AM PRESCHOOL PARAPROFESSIONAL) ACT 263(H) 87 - 138 sec Blood 12/29/2024 10:0 7 AM PRESCHOOL PARAPROFESSIONAL 12/29/2024 10:07 AM PRESCHOOL PARAPROFESSIONAL us Moreno Lam MD LAB [place] [address] [address] [place] [employer] [place], [place] [id number] * (ABNORMAL) POC Activated Clotting Time, High Range (12/29/2024 9:40 AM PRESCHOOL PARAPROFESSIONAL) ACT 285(H) 87 - 138 sec Blood 12/29/2024 9:40 AM PRESCHOOL PARAPROFESSIONAL 12/29/2024 9:40 AM PRESCHOOL PARAPROFESSIONAL us Moreno Lam MD LAB BLOOD ORDERABLES Final Result [facility] [address] [place] [address] * (ABNORMAL) eGFR (12/29/2024 6:45 AM PRESCHOOL PARAPROFESSIONAL) eGFR 55(L) >=60 mL/min/1. 73 m2 Comment: [...] last reviewed 2021. Blood 12/29/2024 6:45 AM PRESCHOOL PARAPROFESSIONAL 12/29/2024 7:44 AM PRESCHOOL PARAPROFESSIONAL us Moreno Lam MD LAB BLOOD ORDERABLES Final Result [facility] [address] Department [place] [address] * Differential, auto (12/29/2024 6:45 AM PRESCHOOL PARAPROFESSIONAL) Neutrophil abs 3.9 1.5 - 6.5 K/cumm Imm gran abs 0.0 0.0 - 0.1 K/cumm [facility] Lymphocyte abs 1.9 0.8 - 3.3 K/cumm [facility] Monocyte abs 0.7 0.2 - 0.8 K/cumm [facility] Eosinophil abs 0.4 0.0 - 0.5 K/cumm [facility] Basophil abs 0.1 0.0 - 0.1 K/cumm [facility] Neutrophil pct 56.2 % [facility] Comment: Interpretive Data Percent cell count [...] revised on 2018. Lymphocyte pct 27.4 % [facility] Comment: Interpretive Data Percent cell count reference ranges are not reported, since discordance with absolute values may lead to misinterpretation of CBC data. Current Interpretive Data was last revised on 2018. Monocyte pct 10.0 % [facility] Comment: Interpretive Data Percent cell count reference ranges are not reported, since discordance with absolute values may lead to misinterpretation of CBC data. Current Interpretive Data was last revised on 2018. Eosinophil pct 5.1 % [facility] Comment: Interpretive Data Percent cell count reference ranges are not reported, since discordance with absolute values may lead to misinterpretation of CBC data. Current Interpretive Data was last revised on 2018. Basophil pct 1.2 % [facility] Comment: Interpretive Data Percent cell count reference ranges are not reported, since discordance with absolute values may lead to misinterpretation of CBC data. Current Interpretive Data was last revised on 2018. Blood 12/29/2024 6:45 AM PRESCHOOL PARAPROFESSIONAL 12/29/2024 7:42 AM PRESCHOOL PARAPROFESSIONAL us Moreno Lam MD LAB BLOOD ORDERABLES Final Result [facility] [address] Department [place] [address] * (ABNORMAL) CBC with auto differential (12/29/2024 6:45 AM PRESCHOOL PARAPROFESSIONAL) WBC 6.9 3.8 - 9.9 K/cumm Hgb 12.1(L) 13.0 - 17.5 g/dL [facility] Hct 37.8(L) 38.9 - 50.3 % [facility] Plt 269 150 - 400 K/cumm [facility] MPV 10.5 9.1 - 12.3 fL [facility] RBC 4.00(L) 4.30 - 5.80 M/cumm [facility] MCV 94.5 81.3 - 96.4 fL [facility] MCH 30.3 27.1 - 33.3 pg [facility] MCHC 32.0(L) 32.3 - 35.7 g/dL [facility] RDW CV 12.9 11.1 - 14.9 % [facility] RDW SD 44.2 35.7 - 48.1 fL [facility] NRBC abs 0.00 0.00 - 0.01 K/cumm [facility] Blood 12/29/2024 6:45 AM PRESCHOOL PARAPROFESSIONAL 12/29/2024 7:42 AM PRESCHOOL PARAPROFESSIONAL Moreno Lam MD LAB BLOOD ORDERABLES Final Result [facility] [address] Department [place] [address] * (ABNORMAL) Basic metabolic panel (12/29/2024 6:45 AM PRESCHOOL PARAPROFESSIONAL) [facility] Sodium 139 135 - 145 mmol/L Potassium, pl 5.1(H) 3.3 - 4.9 mmol/L [facility] Chloride 102 97 - 110 mmol/L [facility] CH CO2 25 22 - 32 mmol/L [facility] CH Anion gap 12 2 - 15 mmol/L [facility] BUN 42(H) 6 - 25 mg/dL [facility] Creatinine 1.36(H) 0.80 - 1.30 mg/dL [facility] Glucose 81 70 - 199 mg/dL [facility] Comment: Interpretive Data Fasting glucose >/= [...] 2022. Calcium 9.7 8.5 - 10.3 mg/dL [facility] Blood 12/29/2024 6:45 AM PRESCHOOL PARAPROFESSIONAL 12/29/2024 7:42 AM PRESCHOOL PARAPROFESSIONAL Moreno Lam MD LAB BLOOD ORDERABLES Final Result [facility] [address] Department [place] [address] * ECG 12 lead (2024 3:34 PM PRESCHOOL PARAPROFESSIONAL) us Moreno Lam MD ECG ORDERABLES Sherri l Result * POCT lipid panel (2024 9:39 AM PRESCHOOL PARAPROFESSIONAL) Cholesterol, POC 126 mg/dL Comment:GLU = 113 HDL, POC 22 mg/dL Triglycerides, POC 323 mg/dL LDL Cholesterol POC 40 mg/dL Chol/HDL Ratio, POC 1.8 Non-HDL Cholesterol, POC 104 mg/dL Cholesterol Total, POC 126 mg/dL Capillary blood 2024 9 :39 AM PRESCHOOL PARAPROFESSIONAL us Moreno Lam MD POINT OF CARE TEST O RDERABLES Final Result * TRANSTHORACIC ECHO (TTE) COMPLETE W DOPPLER/CF WO CONTRAST (11/16/2024 11:06 AM PRESCHOOL PARAPROFESSIONAL) Anatomical Region Laterality Modality Ultrasound 11/16/2024 10:4 9 AM PRESCHOOL PARAPROFESSIONAL Narrative 11/16/2024 12:28 PM PRESCHOOL PARAPROFESSIONAL [facility] Cardiology [address] [facility] [address] [id number] [address] [facility] [address], [place] [address] P:[phone] P:[phone] Echocardiographic Report Patient Name: RAE ALVARADO W : 1950 Study Date: 11/16/2024 10:49:15 AM Gender: M Tech: GARCIA Location: [place] Ref Provider: MORENO LAM Height(Cm): 170 BSA: 2.31 Weight(Kg): 113.4 Heart Rate: 56 BP: 153 / 92 Quality: Good Order Provider: MORENO LAM PROCEDURES: Echocardiographic Report: Transthoracic echocardiogram with complete 2D, M-Mode, and color Doppler examination. INDICATIONS: I25.10 Atherosclerotic heart disease of chitimacha coronary artery without angina pectoris, I48.0 Paroxysmal [...] FINDINGS: Interpretation Site: Exam was interpreted at [facility]. Left Ventricle: Normal left ventricular size. Mild [...] views. Electronically Signed By: Dr. Moreno Lam [facility] 11/16/2024 12:27:44 PM PRESCHOOL PARAPROFESSIONAL Procedure Note Moreno Lam MD - 11/16/2024 [facility] Cardiology [address] [facility] [address], [place] [address] [address] [facility] [address], [place] [address] P:[phone] P:[phone] Echocardiographic Report Patient Name: RAE ALVARADO W : 1950 Study Date: 11/16/2024 10:49:15 AM Gender: M Tech: Location: [facility] Provider: MORENO LAM Height(Cm): 170 BSA: 2.31 Weight(Kg): 113.4 Heart Rate: 56 BP: 153 / 92 Quality: Good Order Provider: MORENO LAM PROCEDURES: Echocardiographic Report: Transthoracic echocardiogram with complete 2D, M-Mode, and color Dopplerexamination. INDICATIONS: I25.10 Atherosclerotic heart disease of [place] coronary artery withoutangina pectoris, I48.0 Paroxysmal atrial [...] FINDINGS: Interpretation Site: Exam was interpreted at [facility]. Left Ventricle: Normal left ventricular size. Mild [...] views. Electronically Signed By: Dr. Moreno Lam [facility] 11/16/2024 12:27:44 PM PRESCHOOL PARAPROFESSIONAL us Moreno Lam MD CV ECHO PROCEDURES F inal Result * POCT lipid panel (11/09/2024 9:44 AM PRESCHOOL PARAPROFESSIONAL) Cholesterol, POC 125 mg/dL Comment:GLU = 91 HDL, POC 22 mg/dL Triglycerides, POC 416 mg/dL LDL Cholesterol POC 23 mg/dL Chol/HDL Ratio, POC N/A Non-HDL Cholesterol, POC 103 mg/dL Cholesterol Total, POC 125 mg/dL Capillary blood 11/09/2024 9 :44 AM PRESCHOOL PARAPROFESSIONAL us Moreno Lam MD POINT OF CARE TEST O RDERABLES Final Result from Last 3 Months Insurance MEDICARE MEDICARE [employer] [facility] Member Subscriber Plan / Payer (Ef fective 2024-Present) Name:Rae Alvarado Relation to Subscriber:Self Name:Rae Alvarado Payer ID:[id number] Group ID:[id number] Type:COMMERCIAL Address: [address] [address] [place] [address] Advance Directives For more information, please contact: [phone] * Full Code (Latest Code Status on File) Date Activated Date Inactivated Comments 12/29/2024 10:49 AM 12/30/2024 7:06 PM * Full Code Date Activated Date Inactivated Comments 12/16/2018 2:21 PM 12/17/2018 10:04 PM Care Teams Link Trainer Relationship Specialty Start Date End Date Walker Breen MD PCP - General Family Practice 03/06/21 Sandy Bragg MD Family Medicine 08/10/20
--- OUTSIDE RECORDS SUMMARY | 2025-01-07 15:51 | XMS_ITS | Encounter Summary ---
Author Organization [facility] Address [address] [place] [address] Care Team Providers Care Loader Operator Name Role Phone Danish Ramírez MD Primary Care Provider [phone] Encounter Details Date Type Department Care Team (Late st Contact Info) Description 12/11/2006 Outpatient Historical [facility] Cardiovas and Thor Surg at [facility] [address] [place] [address] Sabina Ibrahim MD [address] [place] [address] Social History Tobacco Use Types Packs/Day Years Used Date Smoking Tobacco: Never Assessed Sex and Gender Information Value Date Recorded Sex Assigned at Not on file 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
--- OUTSIDE RECORDS SUMMARY | 2025-01-07 15:51 | XMS_ITS | Encounter Summary ---
Author Organization [facility] Address 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
--- OUTSIDE RECORDS SUMMARY | 2025-01-07 15:51 | XMS_ITS | Encounter Summary ---
Author Organization [email or web address] Address 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
--- OUTSIDE RECORDS SUMMARY | 2025-01-07 15:51 | XMS_ITS | Encounter Summary ---
Author Organization [facility] Address 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
--- OUTSIDE RECORDS SUMMARY | 2025-01-07 15:51 | XMS_ITS | Encounter Summary ---
Author Organization [facility] Address 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
[2025-01-07 19:15] LABS: Basophils Absolute Auto 0.1 K/mm3 (0.0-0.1); Eosinophils Absolute Auto 0.4 K/mm3 (0-0.3); Eosinophils Percent Auto 4.1 % (0-4.4); Hematocrit 34.2 % (42.0-52.0); Hemoglobin 11.1 g/dL (14.0-18.0); Immature Granulocyte Absolute 0.02 K/mm3 (0.00-0.031); Immature Granulocyte Percent A 0.2 % (0-0.5); Lymphocytes Absolute Auto 2.17 K/mm3 (0.9-3.2); Lymphocytes Percent Auto 23.4 % (18.3-44.2); Mean Corpuscular HGB Conc 32.5 g/dl (32-36); Mean Corpuscular Hemoglobin 31.3 pg (26-34); Mean Corpuscular Volume 96.3 fl (80-100); Mean Platelet Volume 10.5 fl (7.4-10.4); Monocytes Absolute Auto 0.8 K/mm3 (0.1-0.6); Monocytes Percent Auto 8.6 % (2.6-8.5); Neutrophils Absolute Auto 5.8 K/mm3 (1.3-6.7); Neutrophils Percent Auto 62.7 % (45.5-73.1); Platelet Count Result 310 k/mm3 (150-375); Red Blood Count 3.55 M/mm3 (4.6-6.20); Red Cell Distribution Width 13.3 % (11.5-14.5); White Blood Count 9.3 K/mm3 (4.5-10.0)
[2025-01-07 19:39] LABS: Alanine Aminotransferase 21 U/L (6-50); Albumin Level 4.2 g/dL (3.5-5.1); Alkaline Phosphatase 69 U/L (38-126); Anion Gap 8 mmol/L (4-12); Aspartate Amino Transferase 36 U/L (17-59); Bilirubin,Total 0.9 mg/dL (0.2-1.3); Blood Urea Nitrogen 38 mg/dL (9-20); Calcium 9.4 mg/dL (8.4-10.2); Carbon Dioxide 30 mmol/L (22-30); Chloride 100 mmol/L (98-107); Estimated Glomerular Filt Rate > 60; Glucose 104 mg/dL (65-110); Potassium 4.7 mmol/L (3.4-5.0); Sodium 138 mmol/L (137-145)
[2025-01-07 20:37] LABS: Iron 68 ug/dL (49-181)
[2025-01-07 20:47] LABS: Percent Iron Saturation 22 % (20-50)
[2025-01-07 20:51] LABS: Hemoglobin A1C 5.4 % (<5.7)
[2025-01-07 20:54] LABS: Folic Acid > 20.0 ng/mL (2.76->20)
[2025-01-07 22:51] LABS: Free T4 Free Thyroxine Reflex 1.19 ng/dL (0.78-2.19)
[2025-01-07 23:41] LABS: Total Triiodothyronine (T3) 1.25 NG/ML (0.97-1.69)
== END 2025-01-07 15:46 | disposition home or self-care (01) ==
LOC: ANHGOSHLAB 15:46
PROVIDERS: PCP Family Medicine; Visit Provider Family Medicine
DX: E03.9 Hypothyroidism, unspecified (principal); D64.9 Anemia, unspecified; I10 Essential (primary) hypertension; R73.03 Prediabetes
CPT/HCPCS: 36415; 80053; 82607; 82728; 82746; 83036; 83540; 83550; 84439; 84443; 84480; 85025

== ENCOUNTER 2025-02-22 10:16 | Outpatient (CLI) | payer MEDICARE, OTHER, SELFPAY ==
--- OUTSIDE RECORDS SUMMARY | 2025-02-22 11:28 | XMS_ITS | Clinical Summary ---
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 Gender Identity Not on file Sexual Orientation Not on file Plan of Treatment Health Maintenance Due Date Last Done Comments DTAP/TDAP/TD VACCINES (1 - Tdap) 1970 COLORECTAL SCREENING 1996 Colorectal Cancer Screening 1996 FIT-DNA Q 3 years 1996 FIT/FOBT Q 1 year 1996 Flex Sig/CT Colonography Q 5 years 1996 PNEUMOCOCCAL VACCINE 50+ YEARS (1 of 1 - PCV) 12/14/19 02 ZOSTER VACCINE (1 of 2) 2001 INFLUENZA VACCINE (#1) 2024 RSV VACCINE (60+ or ) (1 - 1-dose 75+ series) 2026 Care Teams Fountain Dispenser Relationship Specialty Start Date End Date Danish Ramírez MD [address] [place] [address] PCP - General 12/10/06
--- OUTSIDE RECORDS SUMMARY | 2025-02-22 11:29 | XMS_ITS | Referral Summary ---
Author Organization [facility] [address] [facility] [address] [place] [address] Care Team Providers Care Chief Customer Officer Name Role Phone Sandy Bragg MD Unavailable [phone] Walker Breen MD Primary Care Provider Encounters Date Type Department Care Team Description 01/18/2025 1:15 PM DATABASE DESIGNER Office Visit [facility] Medical Group Cardiology [address] [place] [address] Darshan Lam MD Paroxysmal atrial fibrillation (HCC) (Primary Dx); Essential hypertension; Coronary artery disease involving [place] coronary artery of [place] heart without angina pectoris; Infrarenal abdominal aortic aneurysm (AAA) without rupture; Localized edema 12/29/2024 5:54 AM DATABASE DESIGNER - 12/30/2024 2:00 PM DATABASE DESIGNER Hospital Encounter [address] [address] Darshan Lam MD Coronary artery disease involving [place] coronary artery of [place] heart without angina pectoris; Chest pain, unspecified type Discharge Disposition: Discharge to home or self care 12/29/2024 8:00 AM DATABASE DESIGNER - 12/29/2024 9:30 AM [facility] Surgery [facility] Cardiac Catheterization Lab [address] [place] [address] Darshan Lam MD LEFT HEART CATHETERIZATION WITH CORONARY ANGIOGRAPHY GRAFT AND WITH OR WITHOUT LEFT VENTRICULOGRAM [address] 12/29/2024 8:27 AM DATABASE DESIGNER Anesthesia Event [facility] Cardiac Catheterization Lab [address] [place] [address] Hermilo Alanis MD Eldin, Ali S., MD 2024 Telephone [facility] Medical [facility] Cardiology [address] [place] [phone] Darshan Lam MD 2024 8:30 AM DATABASE DESIGNER Office Visit [facility] Cardiology [address] [place] [address] Darshan Lam MD Paroxysmal atrial fibrillation (HCC) (Primary Dx); Essential hypertension; Coronary artery disease involving [place] coronary artery of [place] heart without angina pectoris; Infrarenal abdominal aortic aneurysm (AAA) without rupture; Localized edema from Last 3 Months Medications rivaroxaban (XARELTO) 20 mg tablet Take 1 tablet (20 mg total) by mouth daily Active aspirin 81 mg enteric coated tablet Take 1 tablet (81 mg total) by mouth daily Active levothyroxine (SYNTHROID) 200 mcg tablet Take 1 tablet (200 mcg total) by mouth daily 08/31/2021 Active rosuvastatin (CRESTOR) 20 mg tabletIndications :Coronary artery disease involving [place] coronary artery of [place] heart without angina pectoris Take 1 tablet (20 mg total) by mouth daily 90 tablet 2 10/03/2023 Active Klor-Con M10 10 mEq CR tablet TAKE 1 TABLET BY MOUTH TWICE A DAY 180 tablet 3 03/25/2024 Active metoprolol tartrate (LOPRESSOR) 50 mg immediate release tabletIndications :Paroxysmal atrial fibrillation (HCC),Essential hypertension TAKE 1 TABLET BY MOUTH TWICE A DAY 180 tablet 3 12/09/2024 Active HYDROcodone-aceta minophen (NORCO) 5-325 mg per tablet Take 1 tablet by mouth 2 (two) times a day 11/26/2024 Active furosemide (LASIX) 40 mg tablet TAKE 1 TABLET BY MOUTH TWICE A DAY 180 tablet 3 12/21/2024 Active clopidogreL (PLAVIX) 75 mg tablet Take 1 tablet (75 mg total) by mouth daily 30 tablet 12/30/2024 Active Active Problems Problem Noted Date Diagnosed Date Severe obesity 11/09/2024 Aneurysm of infrarenal abdominal aorta 1 Paroxysmal atrial fibrillation 11/12/2018 Essential hypertension 07/01/2018 Assessment & Plan (08/17/2020 [...] Problem Noted Date Diagnosed Date Resolved Date S/P cardiac cath 12/29/2024 01/18/2025 Chest pain 2024 01/18/2025 Acute respiratory failure with hypoxia 12/16/2018 05/02/2020 Angina pectoris, unstable 12/11/2018 Overview (12/11/2018): Added automatically from request for surgery [id number] PAC (premature atrial contraction) 08/18/2018 03/19/2022 Assessment [...] on file Legal Sex Male 6:48 PM DATABASE DESIGNER Gender Identity Not on file Sexual Orientation Not on file Last Filed Vital Signs Vital Sign Reading Time Taken Comments Blood Pressure 138/68 01/18/2025 1:11 PM DATABASE DESIGNER Pulse 57 01/18/2025 1:11 PM DATABASE DESIGNER Temperature 36.7 C (98 F) 12/30/2024 8:17 AM DATABASE DESIGNER Respiratory Rate 16 12/30/2024 8:17 AM DATABASE DESIGNER Oxygen Saturation 99% 01/18/2025 1:11 PM DATABASE DESIGNER Inhaled Oxygen Concentration - - Weight 119.3 kg (263 lb) 01/18/2025 1:11 PM DATABASE DESIGNER Height 170.2 cm (5' 7 ) 01/18/2025 1:11 PM DATABASE DESIGNER Body Mass Index 41.19 01/18/2025 1:11 PM DATABASE DESIGNER Plan of Treatment Not on file Medical Devices Implanted Type Area Probation And Parole Officer Device Identifier Shelf Expiration Date Model / Serial / Lot [employer] [id number] Xience Alpine 3.25mm 23mm 145cm Rapid Exchange Radiopaque 1 - [id number] Implanted:Qty: 1 on 12/16/2018 by Darshan Lam MD at [facility] [employer] 03/09/2021 1 [id number] / / [id number] [employer] [id number] Angio-Seal Vip Bondek-Plus 6fr .035in 70cm Hemostatic Latex Free - [id number] Implanted:Qty: 1 on 12/16/2018 by Darshan Lam MD at [facility] [employer] 08/24/2019 [id number] / / [id number] [employer] Device Vascular Closure Femoral Artery Bioabsorbable Dual Method Vascade 6-7fr Collagen [id number] - [id number] Implanted:Qty: 1 on 12/29/2024 by Darshan Lam MD at [facility] [employer] 05/26/2026 [id number] / / [id number] Procedures Procedure Name Priority Date/Time Associated Diagnosis Comments EGFR Routine 12/30/2024 12:25 PM DATABASE DESIGNER BASIC METABOLIC PANEL Routine 12/30/2024 12:25 PM DATABASE DESIGNER EGFR Routine 12/30/2024 11:44 AM DATABASE DESIGNER DIFFERENTIAL AUTO Routine 12/30/2024 11: 44 AM DATABASE DESIGNER CBC WITH AUTO DIFFERENTIAL Routine 12/30/2024 11:44 AM DATABASE DESIGNER BASIC METABOLIC PANEL Routine 12/30/2024 11:44 AM DATABASE DESIGNER ANGIOPLASTY BALLOON PERCUTANEOUS Routine 12/29/2024 10:26 AM DATABASE DESIGNER Coronary artery disease involving [place] coronary artery of [place] heart without angina pectoris Chest pain, unspecified type CORONARY OCT, 1ST VESSEL Routine 12/29/2024 10:26 AM DATABASE DESIGNER Coronary artery disease involving [place] coronary artery of [place] heart without angina pectoris Chest pain, unspecified type LEFT HEART CATHETERIZATION WITH CORONARY ANGIOGRAPHY GRAFT AND LEFT VENTRICULOGRAM Routine 12/29/2024 10:26 AM DATABASE DESIGNER Coronary artery disease involving [place] coronary artery of [place] heart without angina pectoris Chest pain, unspecified type POCT ACTIVATED CLOTTING TIME, HIGH RANGE Routine 12/29/2024 10:07 AM DATABASE DESIGNER POCT ACTIVATED CLOTTING TIME, HIGH RANGE Routine 12/29/2024 9:40 AM DATABASE DESIGNER EGFR Routine 12/29/2024 6:45 AM DATABASE DESIGNER DIFFERENTIAL AUTO Routine 12/29/2024 6:4 5 AM DATABASE DESIGNER CBC WITH AUTO DIFFERENTIAL Routine 12/29/2024 6:45 AM DATABASE DESIGNER BASIC METABOLIC PANEL Routine 12/29/2024 6:45 AM DATABASE DESIGNER ECG 12-LEAD Routine 2024 3:34 PM DATABASE DESIGNER Paroxysmal atrial fibrillation (HCC) POCT LIPID PANEL Routine 2024 9:39 AM DATABASE DESIGNER Essential hypertension from Last 3 Months Results * eGFR (12/30/2024 12:25 PM DATABASE DESIGNER) eGFR 90 >=60 mL/min/1. 73 m2 Comment: [...] reviewed 2021. Blood 12/30/2024 12:2 5 PM DATABASE DESIGNER 12/30/2024 12:25 PM DATABASE DESIGNER Darshan Lam MD LAB BLOOD ORDERABLES Final Result Performing Organization Address [facility] Co de Phone Number [facility] [address] [place] [address] * Basic metabolic panel (12/30/2024 12:25 PM DATABASE DESIGNER) [facility] Sodium 140 135 - 145 mmol/L Potassium, pl 4.5 3.3 - 4.9 mmol/L [facility] Chloride 105 97 - 110 mmol/L [facility] CO2 25 22 - 32 mmol/L [facility] Anion gap 10 2 - 15 mmol/L [facility] BUN 25 6 - 25 mg/dL [facility] Creatinine 0.90 0.80 - 1.30 mg/dL [facility] Glucose 92 70 - 199 mg/dL [facility] Comment: Interpretive Data Fasting glucose >/= 126 [...] 2022. Calcium 9.2 8.5 - 10.3 mg/dL [facility] Blood 12/30/2024 12:2 5 PM DATABASE DESIGNER 12/30/2024 12:25 PM DATABASE DESIGNER Darshan Lam MD LAB BLOOD ORDERABLES Final Result Performing Organization Address [facility] Co de Phone Number [facility] [address] [address] [place] [address] * eGFR (12/30/2024 11:44 AM DATABASE DESIGNER) eGFR 88 >=60 mL/min/1. 73 m2 Comment: [...] reviewed 2021. Blood 12/30/2024 11:4 4 AM DATABASE DESIGNER 12/30/2024 12:24 PM DATABASE DESIGNER us Darshan Lam MD LAB BLOOD ORDERABLES Final Result [facility] [address] Department [place] [address] * (ABNORMAL) Differential, auto (12/30/2024 11:44 AM DATABASE DESIGNER) Pathologist [facility] Neutrophil abs 6.8(H) 1.5 - 6.5 K/cumm Imm gran abs 0.0 0.0 - 0.1 K/cumm [facility] Lymphocyte abs 1.6 0.8 - 3.3 K/cumm [facility] Monocyte abs 0.8 0.2 - 0.8 K/cumm [facility] Eosinophil abs 0.3 0.0 - 0.5 K/cumm [facility] Basophil abs 0.1 0.0 - 0.1 K/cumm [facility] Neutrophil pct 71.5 % [facility] Comment: Interpretive Data Percent cell count reference ranges are not reported, since discordance with absolute values may lead to misinterpretation of CBC data. Current Interpretive Data was last revised on 2018. Imm gran pct 0.4 % [facility] Comment: Interpretive Data Percent cell count reference [...] revised on 2018. Basophil pct 0.7 % [facility] Comment: Interpretive Data Percent cell count reference ranges are not reported, since discordance with absolute values may lead to misinterpretation of CBC data. Current Interpretive Data was last revised on 2018. Blood 12/30/2024 11:4 4 AM DATABASE DESIGNER 12/30/2024 12:24 PM DATABASE DESIGNER us Darshan Lam MD LAB BLOOD ORDERABLES Final Result [facility] [address] Department [place] [address] * (ABNORMAL) CBC with auto differential (12/30/2024 11:44 AM DATABASE DESIGNER) WBC 9.5 3.8 - 9.9 K/cumm Hgb 10.9(L) 13.0 - 17.5 g/dL [facility] Hct 33.5(L) 38.9 - 50.3 % [facility] Plt 253 150 - 400 K/cumm [facility] MPV 10.2 9.1 - 12.3 fL [facility] RBC 3.53(L) 4.30 - 5.80 M/cumm [facility] MCV 94.9 81.3 - 96.4 fL [facility] MCH 30.9 27.1 - 33.3 pg [facility] MCHC 32.5 32.3 - 35.7 g/dL [facility] RDW CV 13.2 11.1 - 14.9 % [facility] RDW SD 45.6 35.7 - 48.1 fL [facility] NRBC abs 0.00 0.00 - 0.01 K/cumm [facility] Blood 12/30/2024 11:4 4 AM DATABASE DESIGNER 12/30/2024 12:24 PM DATABASE DESIGNER Narrative [facility] - 12/30/2024 12:37 PM DATABASE DESIGNER If most recent labs were drawn prior to 4 AM, draw only prior to initiating procedure. us Darshan Lam MD LAB BLOOD ORDERABLES Final Result [facility] [address] Department [place] [address] * Basic metabolic panel (12/30/2024 11:44 AM DATABASE DESIGNER) Sodium 137 135 - 145 mmol/L Potassium, pl 4.4 3.3 - 4.9 mmol/L [facility] Chloride 104 97 - 110 mmol/L [facility] CO2 25 22 - 32 mmol/L [facility] Anion gap 8 2 - 15 mmol/L [facility] BUN 25 6 - 25 mg/dL [facility] Creatinine 0.92 0.80 - 1.30 mg/dL [facility] Glucose 94 70 - 199 mg/dL [facility] Comment: Interpretive Data Fasting glucose >/= 126 [...] [facility] PE[facility] Blood 12/30/2024 11:4 4 AM DATABASE DESIGNER 12/30/2024 12:24 PM DATABASE DESIGNER us Darshan Lam MD LAB BLOOD ORDERABLES Final Result [facility] [address] [facility] Department [place] [address] * LEFT HEART CATHETERIZATION WITH CORONARY ANGIOGRAPHY GRAFT AND LEFT VENTRICULOGRAM, CORONARY OCT, 1ST VESSEL, ANGIOPLASTY BALLOON PERCUTANEOUS (12/29/2024 10:26 AM DATABASE DESIGNER) Anatomical Region Laterality Modality X-Ray Angiograph y Narrative 12/29/2024 10:53 AM DATABASE DESIGNER CARDIAC CATHETERIZATION REPORT Rae Alvarado IP ENCOUNTER: @CSN@ Date of Procedure: 12/29/2024 BIRTHDATE: 1950 CHIEF CHEMIST: Darshan Lam MD PREPROCEDURE DIAGNOSES: This 74-year-old patient [...] Right common femoral arterial angiogram. Deployment 6 Vietnamese Vascade closure device. FINDINGS: Left main minimal [...] informed consent patient was brought into the laboratory chief where she was draped and prepped in the usual manner. Moderate sedation was given and the right groin infiltrated using 1% lidocaine. Five Vietnamese sheath was obtained using micropuncture needle and [...] REMY angiogram was done. After that 5 Vietnamese pigtail catheter was advanced across aortic valve into the left ventricular with measurement of LVEDP and measure gradient across aortic valve. Right common femoral arterial angiogram was done and deployed 6 Vietnamese Vascade closure device. INTERVENTION Left main was engaged using 6 Vietnamese guide catheter CLS 3.5. Heparin was administered. [...] site: Right common femoral artery. Hemostasis: 6 Vietnamese Vascade closure device. CONCLUSIONS InStent restenosis of the left circumflex artery stent with the mechanism thought to be related to under expansion. Re-expansion of the stent using 3.5 mm noncompliant balloon. Patent REMY to LAD and ANTIONE to RCA PLAN Will add Plavix to his aspirin and Xarelto. Plavix to be taken for a month. us Darshan Lam MD CV CARDIAC CATH PROC EDURES Final Result * (ABNORMAL) POC Activated Clotting Time, High Range (12/29/2024 10:07 AM DATABASE DESIGNER) ACT 263(H) 87 - 138 sec Blood 12/29/2024 10:0 7 AM DATABASE DESIGNER 12/29/2024 10:07 AM DATABASE DESIGNER us Darshan Lam MD LAB BLOOD ORDERABLES Final Result [facility] [address] [place] [address] * (ABNORMAL) POC Activated Clotting Time, High Range (12/29/2024 9:40 AM DATABASE DESIGNER) ACT 285(H) 87 - 138 sec Blood 12/29/2024 9:40 AM DATABASE DESIGNER 12/29/2024 9:40 AM DATABASE DESIGNER us Darshan Lam MD LAB BLOOD ORDERABLES Final Result Performing Organization Address City/[facility]/ZIP Co de Phone Number [facility] [address] [place] [address] * (ABNORMAL) eGFR (12/29/2024 6:45 AM DATABASE DESIGNER) Pathologist [facility] eGFR 55(L) >=60 mL/min/1. 73 m2 Comment: [...] last reviewed 2021. Blood 12/29/2024 6:45 AM DATABASE DESIGNER 12/29/2024 7:44 AM DATABASE DESIGNER us Darshan Lam MD LAB BLOOD ORDERABLES Final Result [facility] [address] Department [place] [address] * Differential, auto (12/29/2024 6:45 AM DATABASE DESIGNER) Neutrophil abs 3.9 1.5 - 6.5 K/cumm Imm gran abs 0.0 0.0 - 0.1 K/cumm [facility] Lymphocyte abs 1.9 0.8 - 3.3 K/cumm [facility] Monocyte abs 0.7 0.2 - 0.8 K/cumm [facility] Eosinophil abs 0.4 0.0 - 0.5 K/cumm [facility] Basophil abs 0.1 0.0 - 0.1 K/cumm [facility] Neutrophil pct 56.2 % [facility] Comment: Interpretive Data Percent cell [...] revised on 2018. Monocyte pct 10.0 % [facility] Comment: Interpretive Data Percent cell count reference ranges are not reported, since discordance with absolute values may lead to misinterpretation of CBC data. Current Interpretive Data was last revised on 2018. Eosinophil pct 5.1 % [facility] Comment: Interpretive Data Percent cell count reference ranges are not reported, since discordance with absolute values may lead to misinterpretation of CBC data. Current Interpretive Data was last revised on 2018. Basophil pct 1.2 % [facility] Comment: Interpretive Data Percent cell count reference ranges are not reported, since discordance with absolute values may lead to misinterpretation of CBC data. Current Interpretive Data was last revised on 2018. Blood 12/29/2024 6:45 AM DATABASE DESIGNER 12/29/2024 7:42 AM DATABASE DESIGNER us Darshan Lam MD LAB BLOOD ORDERABLES Final Result [facility] [address] Department [place] [address] * (ABNORMAL) CBC with auto differential (12/29/2024 6:45 AM DATABASE DESIGNER) WBC 6.9 3.8 - 9.9 K/cumm Hgb 12.1(L) 13.0 - 17.5 g/dL [facility] Hct 37.8(L) 38.9 - 50.3 % [facility] Plt 269 150 - 400 K/cumm [facility] MPV 10.5 9.1 - 12.3 fL [facility] RBC 4.00(L) 4.30 - 5.80 M/cumm [facility] MCV 94.5 81.3 - 96.4 fL [facility] MCH 30.3 27.1 - 33.3 pg [facility] MCHC 32.0(L) 32.3 - 35.7 g/dL [facility] RDW CV 12.9 11.1 - 14.9 % [facility] RDW SD 44.2 35.7 - 48.1 fL [facility] NRBC abs 0.00 0.00 - 0.01 K/cumm [facility] Blood 12/29/2024 6:45 AM DATABASE DESIGNER 12/29/2024 7:42 AM DATABASE DESIGNER Darshan Lam MD LAB BLOOD ORDERABLES Final Result [facility] [address] [address] Department [place] [address] * (ABNORMAL) Basic metabolic panel (12/29/2024 6:45 AM DATABASE DESIGNER) Sodium 139 135 - 145 mmol/L Potassium, pl 5.1(H) 3.3 - 4.9 mmol/L [facility] Chloride 102 97 - 110 mmol/L [facility] CO2 25 22 - 32 mmol/L [facility] Anion gap 12 2 - 15 mmol/L [facility] BUN 42(H) 6 - 25 mg/dL [facility] Creatinine 1.36(H) 0.80 - 1.30 mg/dL [facility] Glucose 81 70 - 199 mg/dL [facility] Comment: Interpretive Data Fasting glucose >/= 126 [...] 2022. Calcium 9.7 8.5 - 10.3 mg/dL [facility] Blood 12/29/2024 6:45 AM DATABASE DESIGNER 12/29/2024 7:42 AM DATABASE DESIGNER Darshan Lam MD LAB BLOOD ORDERABLES Final Result Performing Organization Address City/[facility]/ZIP Co de Phone Number [facility] [address] Department [place] [address] * ECG 12 lead (2024 3:34 PM DATABASE DESIGNER) us Darshan Lam MD ECG ORDERABLES Sherri l Result * POCT lipid panel (2024 9:39 AM DATABASE DESIGNER) Cholesterol, POC 126 mg/dL Comment:GLU = 113 HDL, POC 22 mg/dL Triglycerides, POC 323 mg/dL LDL Cholesterol POC 40 mg/dL Chol/HDL Ratio, POC 1.8 Non-HDL Cholesterol, POC 104 mg/dL Cholesterol Total, POC 126 mg/dL Capillary blood 2024 9 :39 AM DATABASE DESIGNER us Darshan Lam MD POINT OF CARE TEST O RDERABLES Final Result from Last 3 Months Insurance MEDICARE MEDICARE [employer] [place] Member Subscriber Plan / Payer (Ef fective 2024-Present) Name:Rae Alvarado Relation to Subscriber:Self Name:Rae Alvarado Payer ID:[id number] Group ID:[id number] Type:[employer] Address: [address] [address] [place] [address] Advance Directives For more information, please contact: [phone] * Full Code (Latest Code Status on File) Date Activated Date Inactivated Comments 12/29/2024 10:49 AM 12/30/2024 7:06 PM * Full Code Date Activated Date Inactivated Comments 12/16/2018 2:21 PM 12/17/2018 10:04 PM Care Teams Chief Customer Officer Relationship Specialty Start Date End Date Walker Breen MD PCP - General Family Practice 03/06/21 Sandy Bragg MD Family Medicine 08/10/20
--- OUTSIDE RECORDS SUMMARY | 2025-02-22 11:29 | XMS_ITS | Encounter Summary ---
Author Organization [employer] Address [address] [place] [address] Care Team Providers Care Overweaver Name Role Phone Danish Ramírez MD Primary Care Provider [phone] Encounter Details Date Type Department Care Team (Late st Contact Info) Description 12/11/2006 Outpatient Historical [facility] Support Serv. (Adt Cardiology-[facility]) [address] [place] [address] Miki Maya MD [address] [facility] [address] [place] [address] Social History Tobacco Use Types Packs/Day Years Used Date Smoking Tobacco: Never Assessed Sex and Gender Information Value Date Recorded Sex Assigned at Not on file Legal Sex Male 5:17 AM GREIGE MENDER Gender Identity Not on file Sexual Orientation Not on file documented as of this encounter Plan of Treatment Not on file documented as of this encounter Visit Diagnoses Not on filedocumented in this encounter Care Teams Overweaver Relationship Specialty Start Date End Date Danish Ramírez MD [address] [place] [address] PCP - General 12/10/06 documented as of this encounter
--- OUTSIDE RECORDS SUMMARY | 2025-02-22 11:29 | XMS_ITS | Clinical Summary ---
Author Organization [facility] [address] Address [address] [place] [address] Care Team Providers Care Engineer Soils Name Role Phone Sandy Bragg MD Unavailable [phone] Walker Breen MD Primary Care Provider Medications rivaroxaban (XARELTO) 20 mg tablet Take 1 tablet (20 mg total) by mouth daily Active aspirin 81 mg enteric coated tablet Take 1 tablet (81 mg total) by mouth daily Active levothyroxine (SYNTHROID) 200 mcg tablet Take 1 tablet (200 mcg total) by mouth daily 08/31/2021 Active rosuvastatin (CRESTOR) 20 mg tabletIndications :Coronary artery disease involving hughes coronary artery of hughes heart without angina pectoris Take 1 tablet [...] of infrarenal abdominal aorta Paroxysmal atrial fibrillation 11/12/2018 Essential hypertension 07/01/2018 [...] (12/11/2018): Added automatically from request for surgery [id number] PAC (premature atrial contraction) 08/18/2018 03/19/2022 Assessment [...] Department Care Team Description 01/18/2025 1:15 PM VISION THERAPIST Office Visit [facility] Cardiology [address] [place] [phone] Darshan Lam MD Paroxysmal atrial fibrillation (HCC) (Primary Dx); Essential hypertension; Coronary artery disease involving hughes coronary artery of hughes heart without angina pectoris; Infrarenal abdominal aortic aneurysm (AAA) without rupture; Localized edema 12/29/2024 8:27 AM VISION THERAPIST Anesthesia Event [facility] Cardiac Catheterization Lab [address] [place] [address] Hermilo Alanis MD Eldin, Ali S., MD 12/29/2024 8:00 AM VISION THERAPIST - 12/29/2024 9:30 AM VISION THERAPIST Surgery [facility] Cardiac Catheterization Lab [address] [place] [address] Darshan Lam MD LEFT HEART CATHETERIZATION WITH CORONARY ANGIOGRAPHY GRAFT AND WITH OR WITHOUT LEFT VENTRICULOGRAM [id number] 12/29/2024 5:54 AM VISION THERAPIST - 12/30/2024 2:00 PM VISION THERAPIST Hospital Encounter [address] [address] Darshan Lam MD Coronary artery disease involving hughes coronary artery of hughes heart without angina pectoris; Chest pain, unspecified type Discharge Disposition: Discharge to home or self care 2024 8:30 AM VISION THERAPIST Office Visit [facility] Cardiology [address] [place] [phone] Darshan Lam MD Paroxysmal atrial fibrillation (HCC) (Primary Dx); Essential hypertension; Coronary artery disease involving hughes coronary artery of hughes heart without angina pectoris; Infrarenal abdominal aortic aneurysm (AAA) without rupture; Localized edema 2024 Telephone [facility] Cardiology [address] [place] [address] Darshan Lam MD from Last 3 Months Surgical History Surgery Date Site/Laterality Comments CORONARY ANGIOPLASTY CORONARY ARTERY BYPASS GRAFT 11/25/2006 - 11/24/2007 ESOPHAGOGASTRODUODENOSCOPY CARDIAC CATHETERIZATION CARDIAC CATHETERIZATION 12/29/2024 N/A Procedure: LEFT HEART CATHETERIZATION WITH CORONARY ANGIOGRAPHY GRAFT AND WITH OR WITHOUT LEFT VENTRICULOGRAM [id number]; Surgeon: Darshan Lam MD; Location: CARDIAC ELECTROLOG OPERATOR; Service: Cardiovascular; Laterality: N/A; Medical devices from this surgery are in the Medical Devices section. CARDIAC CATHETERIZATION 12/29/2024 N/A Procedure: IVUS/OCT CORS OR GRAFTS, FIRST VESSEL (+) [id number]; Surgeon: Darshan Lam MD; Location: CARDIAC ELECTROLOG OPERATOR; Service: Cardiovascular; Laterality: N/A; Medical devices from this surgery are in the Medical Devices section. Medical History Medical History Date Comments Adiposity Obesity Hx Other Medical DJD Hypertension Thyroid disease Coronary artery disease Atrial fibrillation (HCC) Arthritis Dyspnea on exertion Chest tightness [...] on file Legal Sex Male 6:48 PM VISION THERAPIST Gender Identity Not on file Sexual Orientation Not on file Obstetrics History Last Filed Vital Signs Vital Sign Reading Time Taken Comments Blood Pressure 138/68 01/18/2025 1:11 PM VISION THERAPIST Pulse 57 01/18/2025 1:11 PM VISION THERAPIST Temperature 36.7 C (98 F) 12/30/2024 8:17 AM VISION THERAPIST Respiratory Rate 16 12/30/2024 8:17 AM VISION THERAPIST Oxygen Saturation 99% 01/18/2025 1:11 PM VISION THERAPIST Inhaled Oxygen Concentration - - Weight 119.3 kg (263 lb) 01/18/2025 1:11 PM VISION THERAPIST Height 170.2 cm (5' 7 ) 01/18/2025 1:11 PM VISION THERAPIST Body Mass Index 41.19 01/18/2025 1:11 PM VISION THERAPIST Plan of Treatment Health Maintenance Due Date Last Done Comments Colon Cancer Screening-Colonoscopy 1950 Depression Screening 1950 Hepatitis C Screening 1950 DTaP/Tdap/Td Vaccine (1 - Tdap) 1962 Hepatitis B Screening 1969 Pneumococcal vaccine 65+ (1 of 1 - PCV) 2001 Zoster Vaccine (1 of 2) 2001 Well Visit 65+ 2016 Influenza Vaccine (#1) 2024 Fall Risk Assessment 12/30/2025 12/30/2024, 09/11/2021, 05/02/2020 Abdominal Aortic Aneurysm (A AA) Screen Completed 01/18/2025, 2024, 11/09/2024, Additional history exists Medical Devices Implanted Type Area Press Writer Device Identifier Shelf Expiration Date Model / Serial / Lot [employer] [id number] Xience Alpine 3.25mm 23mm 145cm Rapid Exchange Radiopaque 1 - [id number] Implanted:Qty: 1 on 12/16/2018 by Darshan Lam MD at [facility] [employer] 03/09/2021 1 [id number] / / [id number] [employer] [id number] Angio-Seal Vip Bondek-Plus 6fr .035in 70cm Hemostatic Latex Free - [id number] Implanted:Qty: 1 on 12/16/2018 by Darshan Lam MD at [facility] 08/24/2019 [id number] / / [id number] [employer] Device Vascular Closure Femoral Artery Bioabsorbable Dual Method Vascade 6-7fr Collagen [id number] - [id number] Implanted:Qty: 1 on 12/29/2024 by Darshan Lam MD at [facility] [employer] 05/26/2026 [id number] / / [id number] Procedures Procedure Name Priority Date/Time Associated Diagnosis Comments EGFR Routine 12/30/2024 12:25 PM VISION THERAPIST BASIC METABOLIC PANEL Routine 12/30/2024 12:25 PM VISION THERAPIST EGFR Routine 12/30/2024 11:44 AM VISION THERAPIST DIFFERENTIAL AUTO Routine 12/30/2024 11: 44 AM VISION THERAPIST CBC WITH AUTO DIFFERENTIAL Routine 12/30/2024 11:44 AM VISION THERAPIST BASIC METABOLIC PANEL Routine 12/30/2024 11:44 AM VISION THERAPIST ANGIOPLASTY BALLOON PERCUTANEOUS Routine 12/29/2024 10:26 AM VISION THERAPIST Coronary artery disease involving hughes coronary artery of hughes heart without angina pectoris Chest pain, unspecified type CORONARY OCT, 1ST VESSEL Routine 12/29/2024 10:26 AM VISION THERAPIST Coronary artery disease involving hughes coronary artery of hughes heart without angina pectoris Chest pain, unspecified type LEFT HEART CATHETERIZATION WITH CORONARY ANGIOGRAPHY GRAFT AND LEFT VENTRICULOGRAM Routine 12/29/2024 10:26 AM VISION THERAPIST Coronary artery disease involving hughes coronary artery of hughes heart without angina pectoris Chest pain, unspecified type POCT ACTIVATED CLOTTING TIME, HIGH RANGE Routine 12/29/2024 10:07 AM VISION THERAPIST POCT ACTIVATED CLOTTING TIME, HIGH RANGE Routine 12/29/2024 9:40 AM VISION THERAPIST EGFR Routine 12/29/2024 6:45 AM VISION THERAPIST DIFFERENTIAL AUTO Routine 12/29/2024 6:4 5 AM VISION THERAPIST CBC WITH AUTO DIFFERENTIAL Routine 12/29/2024 6:45 AM VISION THERAPIST BASIC METABOLIC PANEL Routine 12/29/2024 6:45 AM VISION THERAPIST ECG 12-LEAD Routine 2024 3:34 PM VISION THERAPIST Paroxysmal atrial fibrillation (HCC) POCT LIPID PANEL Routine 2024 9:39 AM VISION THERAPIST Essential hypertension from Last 3 Months Results * eGFR (12/30/2024 12:25 PM VISION THERAPIST) eGFR 90 >=60 mL/min/1. 73 m2 Comment: [...] reviewed 2021. Blood 12/30/2024 12:2 5 PM VISION THERAPIST 12/30/2024 12:25 PM VISION THERAPIST us Darshan Lam MD LAB BLOOD ORDERABLES Final Result [facility] [address] Department [place] [address] * Basic metabolic panel (12/30/2024 12:25 PM VISION THERAPIST) Sodium 140 135 - 145 mmol/L Potassium, pl 4.5 3.3 - 4.9 mmol/L [facility] Chloride 105 97 - 110 mmol/L [facility] CO2 25 22 - 32 mmol/L [facility] Anion gap 10 2 - 15 mmol/L [facility] BUN 25 6 - 25 mg/dL [facility] Creatinine 0.90 0.80 - 1.30 mg/dL [facility] Glucose 92 70 - 199 mg/dL [facility] Comment: Interpretive Data Fasting glucose [...] 2022. Calcium 9.2 8.5 - 10.3 mg/dL [facility] Blood 12/30/2024 12:2 5 PM VISION THERAPIST 12/30/2024 12:25 PM VISION THERAPIST Darshan Lam MD LAB BLOOD ORDERABLES Final Result [facility] [address] Department [place] [address] * eGFR (12/30/2024 11:44 AM VISION THERAPIST) eGFR 88 >=60 mL/min/1. 73 m2 Comment: [...] reviewed 2021. Blood 12/30/2024 11:4 4 AM VISION THERAPIST 12/30/2024 12:24 PM VISION THERAPIST us Darshan Lam MD LAB BLOOD ORDERABLES Final Result [facility] [address] Department [place] [address] * (ABNORMAL) Differential, auto (12/30/2024 11:44 AM VISION THERAPIST) Neutrophil abs 6.8(H) 1.5 - 6.5 K/cumm Imm gran abs 0.0 0.0 - 0.1 K/cumm [facility] Lymphocyte abs 1.6 0.8 - 3.3 K/cumm [facility] Monocyte abs 0.8 0.2 - 0.8 K/cumm [facility] Eosinophil abs 0.3 0.0 - 0.5 K/cumm [facility] Basophil abs 0.1 0.0 - 0.1 K/cumm [facility] Neutrophil pct 71.5 % [facility] Comment: Interpretive Data Percent cell count reference ranges are not reported, since discordance with absolute values may lead to misinterpretation of CBC data. Current Interpretive Data was last revised on 2018. Imm gran pct 0.4 % [facility] Comment: Interpretive Data Percent cell count reference ranges are not reported, since discordance with absolute values may lead to misinterpretation of CBC data. Current Interpretive Data was last revised on 2018. Lymphocyte pct 16.6 % [facility] Comment: Interpretive Data Percent cell count reference ranges are not reported, since discordance with absolute values may lead to misinterpretation of CBC data. Current Interpretive Data was last revised on 2018. Monocyte pct 8.2 % [facility] Comment: Interpretive Data Percent cell count reference ranges are not reported, since discordance with absolute values may lead to misinterpretation of CBC data. Current Interpretive Data was last revised on 2018. Eosinophil pct 2.6 % [facility] Comment: Interpretive Data Percent cell count reference ranges are not reported, since discordance with absolute values may lead to misinterpretation of CBC data. Current Interpretive Data was last revised on 2018. Basophil pct 0.7 % [facility] Comment: Interpretive Data Percent cell count reference ranges are not reported, since discordance with absolute values may lead to misinterpretation of CBC data. Current Interpretive Data was last revised on 2018. Blood 12/30/2024 11:4 4 AM VISION THERAPIST 12/30/2024 12:24 PM VISION THERAPIST us Darshan Lam MD LAB BLOOD ORDERABLES Final Result [facility] [address] Department [place] [address] * (ABNORMAL) CBC with auto differential (12/30/2024 11:44 AM VISION THERAPIST) WBC 9.5 3.8 - 9.9 K/cumm Hgb 10.9(L) 13.0 - 17.5 g/dL [facility] Hct 33.5(L) 38.9 - 50.3 % [facility] Plt 253 150 - 400 K/cumm [facility] MPV 10.2 9.1 - 12.3 fL [facility] RBC 3.53(L) 4.30 - 5.80 M/cumm [facility] MCV 94.9 81.3 - 96.4 fL [facility] MCH 30.9 27.1 - 33.3 pg [facility] MCHC 32.5 32.3 - 35.7 g/dL [facility] RDW CV 13.2 11.1 - 14.9 % [facility] RDW SD 45.6 35.7 - 48.1 fL [facility] NRBC abs 0.00 0.00 - 0.01 K/cumm [facility] Blood 12/30/2024 11:4 4 AM VISION THERAPIST 12/30/2024 12:24 PM VISION THERAPIST Narrative [facility] - 12/30/2024 12:37 PM VISION THERAPIST If most recent labs were drawn prior to 4 AM, draw only prior to initiating procedure. Darshan Lam MD LAB BLOOD ORDERABLES Final Result [facility] [address] Department [place] [address] * Basic metabolic panel (12/30/2024 11:44 AM VISION THERAPIST) Sodium 137 135 - 145 mmol/L Potassium, pl 4.4 3.3 - 4.9 mmol/L [facility] Chloride 104 97 - 110 mmol/L [facility] CO2 25 22 - 32 mmol/L [facility] Anion gap 8 2 - 15 mmol/L [facility] BUN 25 6 - 25 mg/dL [facility] Creatinine 0.92 0.80 - 1.30 mg/dL [facility] Glucose 94 70 - 199 mg/dL [facility] Comment: Interpretive Data Fasting glucose [...] 2022. Calcium 9.2 8.5 - 10.3 mg/dL [facility] Blood 12/30/2024 11:4 4 AM VISION THERAPIST 12/30/2024 12:24 PM VISION THERAPIST Darshan Lam MD LAB BLOOD ORDERABLES Final Result [facility] PE[facility] [address] [facility] Department [place] [address] * LEFT HEART CATHETERIZATION WITH CORONARY ANGIOGRAPHY GRAFT AND LEFT VENTRICULOGRAM, CORONARY OCT, 1ST VESSEL, ANGIOPLASTY BALLOON PERCUTANEOUS (12/29/2024 10:26 AM VISION THERAPIST) Anatomical Region Laterality Modality X-Ray Angiograph y Narrative 12/29/2024 10:53 AM VISION THERAPIST CARDIAC CATHETERIZATION REPORT Rae Alvarado IP ENCOUNTER: @CSN@ Date of Procedure: 12/29/2024 BIRTHDATE: 1950 GIS PROGRAMMER: Darshan Lam MD PREPROCEDURE DIAGNOSES: This 74-year-old [...] Right common femoral arterial angiogram. Deployment 6 Montserratian Vascade closure device. FINDINGS: Left main minimal [...] informed consent patient was brought into the dental laboratory worker where she was draped and prepped in the usual manner. Moderate sedation was given and the right groin infiltrated using 1% lidocaine. Five Montserratian sheath was obtained using micropuncture needle and [...] REMY angiogram was done. After that 5 Montserratian pigtail catheter was advanced across aortic valve into the left ventricular with measurement of LVEDP and measure gradient across aortic valve. Right common femoral arterial angiogram was done and deployed 6 Montserratian Vascade closure device. INTERVENTION Left main was engaged using 6 Montserratian guide catheter CLS 3.5. Heparin was administered. [...] site: Right common femoral artery. Hemostasis: 6 Montserratian Vascade closure device. CONCLUSIONS InStent restenosis of [...] Clotting Time, High Range (12/29/2024 10:07 AM VISION THERAPIST) ACT 263(H) 87 - 138 sec Blood 12/29/2024 10:0 7 AM VISION THERAPIST 12/29/2024 10:07 AM VISION THERAPIST us Darshan Lam MD LAB BLOOD ORDERABLES Final Result Performing Organization Address City/[facility]/ZIP Co de Phone Number DANA PENA [address] Department [place] [address] * (ABNORMAL) POC Activated Clotting Time, High Range (12/29/2024 9:40 AM VISION THERAPIST) ACT 285(H) 87 - 138 sec Blood 12/29/2024 9:40 AM VISION THERAPIST 12/29/2024 9:40 AM VISION THERAPIST Darshan Lam MD LAB BLOOD ORDERABLES Final Result Performing Organization Address [facility] [place] [address] [address] Department [place] [address] * (ABNORMAL) eGFR (12/29/2024 6:45 AM VISION THERAPIST) eGFR 55(L) >=60 mL/min/1. 73 m2 Comment: [...] last reviewed 2021. Blood 12/29/2024 6:45 AM VISION THERAPIST 12/29/2024 7:44 AM VISION THERAPIST us Darshan Lam MD LAB BLOOD ORDERABLES Final Result [facility] [address] Department [place] [address] * Differential, auto (12/29/2024 6:45 AM VISION THERAPIST) Neutrophil abs 3.9 1.5 - 6.5 K/cumm Imm gran abs 0.0 0.0 - 0.1 K/cumm [facility] Lymphocyte abs 1.9 0.8 - 3.3 K/cumm [facility] Monocyte abs 0.7 0.2 - 0.8 K/cumm [facility] Eosinophil abs 0.4 0.0 - 0.5 K/cumm [facility] Basophil abs 0.1 0.0 - 0.1 K/cumm [facility] Neutrophil pct 56.2 % [facility] Comment: Interpretive Data Percent cell count reference ranges are not reported, since discordance with absolute values may lead to misinterpretation of CBC data. Current Interpretive Data was last revised on 2018. Imm gran pct 0.1 % [facility] Comment: Interpretive Data Percent cell count reference ranges are not reported, since discordance with absolute values may lead to misinterpretation of CBC data. Current Interpretive Data was last revised on 2018. Lymphocyte pct 27.4 % [facility] Comment: Interpretive Data Percent cell count reference ranges are not reported, since discordance with absolute values may lead to misinterpretation of CBC data. Current Interpretive Data was last revised on 2018. Monocyte pct 10.0 % [facility] Comment: Interpretive Data Percent cell count reference ranges are not reported, since discordance with absolute values may lead to misinterpretation of CBC data. Current Interpretive Data was last revised on 2018. Eosinophil pct 5.1 % [facility] Comment: Interpretive Data Percent cell count reference ranges are not reported, since discordance with absolute values may lead to misinterpretation of CBC data. Current Interpretive Data was last revised on 2018. Basophil pct 1.2 % [facility] Comment: Interpretive Data Percent cell count reference ranges are not reported, since discordance with absolute values may lead to misinterpretation of CBC data. Current Interpretive Data was last revised on 2018. Blood 12/29/2024 6:45 AM VISION THERAPIST 12/29/2024 7:42 AM VISION THERAPIST Darshan Lam MD LAB BLOOD ORDERABLES Final Result Performing Organization Address [facility] Co de Phone Number DANA PENA [address] [employer] [place] [address] * (ABNORMAL) CBC with auto differential (12/29/2024 6:45 AM VISION THERAPIST) WBC 6.9 3.8 - 9.9 K/cumm Hgb 12.1(L) 13.0 - 17.5 g/dL [facility] Hct 37.8(L) 38.9 - 50.3 % [facility] Plt 269 150 - 400 K/cumm [facility] MPV 10.5 9.1 - 12.3 fL [facility] RBC 4.00(L) 4.30 - 5.80 M/cumm [facility] MCV 94.5 81.3 - 96.4 fL [facility] MCH 30.3 27.1 - 33.3 pg [facility] MCHC 32.0(L) 32.3 - 35.7 g/dL [facility] RDW CV 12.9 11.1 - 14.9 % [facility] RDW SD 44.2 35.7 - 48.1 fL [facility] NRBC abs 0.00 0.00 - 0.01 K/cumm [facility] Blood 12/29/2024 6:45 AM VISION THERAPIST 12/29/2024 7:42 AM VISION THERAPIST Darshan Lam MD LAB BLOOD ORDERABLES Final Result Performing Organization Address City/[facility] Co de Phone Number DANA PENA [address] [facility] [place] [address] * (ABNORMAL) Basic metabolic panel (12/29/2024 6:45 AM VISION THERAPIST) Sodium 139 135 - 145 mmol/L Potassium, pl 5.1(H) 3.3 - 4.9 mmol/L [facility] Chloride 102 97 - 110 mmol/L [facility] CO2 25 22 - 32 mmol/L [facility] Anion gap 12 2 - 15 mmol/L [facility] BUN 42(H) 6 - 25 mg/dL [facility] Creatinine 1.36(H) 0.80 - 1.30 mg/dL [facility] Glucose 81 70 - 199 mg/dL [facility] [...] 10.3 mg/dL [facility] Blood 12/29/2024 6:45 AM VISION THERAPIST 12/29/2024 7:42 AM VISION THERAPIST us Darshan Lam MD LAB BLOOD ORDERABLES Final Result DANA [address] Department [place] [address] * ECG 12 lead (2024 3:34 PM VISION THERAPIST) us Darshan Lam MD ECG ORDERABLES Sherri l Result * POCT lipid panel (2024 9:39 AM VISION THERAPIST) Cholesterol, POC 126 mg/dL Comment:GLU = 113 HDL, POC 22 mg/dL Triglycerides, POC 323 mg/dL LDL Cholesterol POC 40 mg/dL Chol/HDL Ratio, POC 1.8 Non-HDL Cholesterol, POC 104 mg/dL Cholesterol Total, POC 126 mg/dL Capillary blood 2024 9 :39 AM VISION THERAPIST Darshan Lam MD POINT OF CARE TEST O RDERABLES Final Result from Last 3 Months Insurance MEDICARE MEDICARE [facility] MEDICARE [facility] Address: [address] [address] [place] [address] [employer] [place] Member Subscriber Plan / Payer (Ef fective 2024-Present) Name:Rae Alvarado Relation to Subscriber:Self Name:Rae Alvarado Nguyen Payer ID:[id number] Group ID:[id number] Type:COMMERCIAL Address: [address] [address] [place] [address] Advance Directives For more information, please contact: [phone] * Full Code (Latest Code Status on File) Date Activated Date Inactivated Comments 12/29/2024 10:49 AM 12/30/2024 7:06 PM * Full Code Date Activated Date Inactivated Comments 12/16/2018 2:21 PM 12/17/2018 10:04 PM Care Teams Engineer Soils Relationship Specialty Start Date End Date Walker Breen MD PCP - General Family Practice 03/06/21 Sandy Bragg MD Family Medicine 08/10/20
--- OUTSIDE RECORDS SUMMARY | 2025-02-22 11:29 | XMS_ITS | Encounter Summary ---
Author Organization [facility] Address 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
--- OUTSIDE RECORDS SUMMARY | 2025-02-22 11:29 | XMS_ITS | Encounter Summary ---
Author Organization [facility] Address [address] [place] [address] Care Team Providers Care Orthopedic Shoe Fitter Name Role Phone Danish Ramírez MD Primary Care Provider Encounter Details Date Type Department Care Team (Late st Contact Info) Description 12/10/2006 Outpatient Historical [facility] Cardi[facility] and [facility] S[facility] at [facility] Heart [address] [address] Akash Lopez Jr., MD NO ADDRESS ON FILE Social History Tobacco Use Types Packs/Day Years Used Date Smoking Tobacco: Never Assessed Sex and Gender Information Value Date Recorded Sex Assigned at Not on file Legal Sex Male 5:17 AM 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
--- OUTSIDE RECORDS SUMMARY | 2025-02-22 11:29 | XMS_ITS | Clinical Summary ---
Author Organization [facility] Address [facility] [place] [address] Care Team Providers Care Plater Printed Circuit Board Panels Name Role Phone None, Provider MD Primary [...] Vaccine ( - 2023-2 5 season) 2024 RSV Immunization or 60+ Years (1 [...] Insurance MEDICARE GENERIC - COMMERCIAL Care Teams Plater [employer]ed Circuit [employer] Panels Relationship Specialty Start Date End Date None, Provider, PCP - General 05/14/19
--- OUTSIDE RECORDS SUMMARY | 2025-02-22 11:29 | XMS_ITS | Encounter Summary ---
Author Organization [employer] Address [address] [place] [address] Care Team Providers Care Paper Wood Cutter Name Role Phone Danish Ramírez MD Primary Care Provider [phone] Encounter Details Date Type Department Care Team (Late st Contact Info) Description 2006 Outpatient Historical [facility] Support Serv. (Adt Cardiology-[facility]) [address] 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
--- OUTSIDE RECORDS SUMMARY | 2025-02-22 11:29 | XMS_ITS | Encounter Summary ---
Author Organization [facility] Address [address] [place] [address] Care Team Providers Care Waist Cutter Name Role Phone Danish Ramírez MD Primary Care Provider [phone] Encounter Details Date Type Department Care Team (Late st Contact Info) Description 01/15/2007 Outpatient Historical [facility] Cardiovas and Thor Surg at [facility] [address] [address] Akash Lopez Jr., MD NO ADDRESS ON FILE Social History Tobacco Use Types Packs/Day Years Used Date Smoking Tobacco: Never Assessed Sex and Gender Information Value Date Recorded Sex Assigned at Not on file Legal Sex Male 5:17 AM 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
--- OUTSIDE RECORDS SUMMARY | 2025-02-22 11:29 | XMS_ITS | Encounter Summary ---
Author Organization [facility] Address [address] [place] [address] Care Team Providers Care Retail Sales Teammate Name Role Phone Danish Ramírez MD Primary Care Provider [phone] Encounter Details Date Type Department Care Team (Late st Contact Info) Description 12/11/2006 Outpatient Historical [facility] Cardiovas and Thor Surg at 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
--- OUTSIDE RECORDS SUMMARY | 2025-02-22 11:29 | XMS_ITS | Encounter Summary ---
Author Organization [facility] Address 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
--- OUTSIDE RECORDS SUMMARY | 2025-02-22 11:29 | XMS_ITS | Encounter Summary ---
Author Organization [employer] Address [address] [place] [address] Care Team Providers Care Chief Creative Officer Name Role Phone Danish Ramírez MD Primary Care Provider Encounter Details Date Type Department Care Team (Latest Contact Info) Description 12/10/2006 Inpatient Historical HIS PATIENT IN A BED Akash Lopez Jr., MD NO ADDRESS ON FILE Augusto Mckeon MD [address] [address] Coronary Atherosclerosis of [place] Coronary Artery (Primary Dx) Social History Tobacco Use Types Packs/Day Years Used Date Smoking Tobacco: Never Assessed Sex and Gender Information Value Date Recorded Sex Assigned at Not on file Legal Sex Male 5:17 AM APNS Gender Identity Not on file Sexual Orientation Not on file documented as of this encounter Plan of Treatment Not on file documented as of this encounter Procedures Procedure Name Priority Date/Time Associated Diagnosis Comments POC GLUCOSE Routine 2006 8:51 AM APNS POC GLUCOSE Routine 12/13/2006 8:34 PM APNS POC GLUCOSE Routine 12/13/2006 4:32 PM APNS POC GLUCOSE Routine 12/13/2006 11:33 AM APNS POC GLUCOSE Routine 12/13/2006 7:06 AM APNS CBC WITH DIFFERENTIAL Routine 12/13/2006 6:27 AM APNS CBC WITH DIFFERENTIAL Routine 12/13/2006 6:27 AM APNS MAGNESIUM LEVEL Routine 12/13/2006 5:34 AM APNS BASIC METABOLIC PANEL Routine 12/13/2006 5:34 AM APNS POC GLUCOSE Routine 12/12/2006 9:50 PM APNS POC GLUCOSE Routine 12/12/2006 5:29 PM APNS CK TOTAL, RELATIVE INDEX Routine 12/12/2006 5:21 PM APNS CKMB W/REFLEX CK Routine 12/12/2006 5:21 PM APNS POC GLUCOSE Routine 12/12/2006 12:05 PM APNS CVR ONLY, CKMB/CK Routine 12/12/2006 10: 15 AM APNS POC GLUCOSE Routine 12/12/2006 6:59 AM APNS POC, BLOOD GASES Routine 12/12/2006 4:45 AM APNS PT AND APTT Routine 12/12/2006 4:00 AM APNS CBC WITH DIFFERENTIAL Routine 12/12/2006 4:00 AM APNS CBC WITH DIFFERENTIAL Routine 12/12/2006 4:00 AM APNS COMPREHENSIVE METABOLIC PANEL Routine 12/12/2006 4:00 AM APNS POTASSIUM LEVEL Routine 12/12/2006 1:08 AM APNS MAGNESIUM LEVEL Routine 12/12/2006 1:08 AM APNS POC GLUCOSE Routine 12/12/2006 1:02 AM APNS CVR ONLY, CKMB/CK Routine 12/12/2006 1:0 0 AM APNS POTASSIUM LEVEL Routine 12/11/2006 9:25 PM APNS MAGNESIUM LEVEL Routine 12/11/2006 9:25 PM APNS POC GLUCOSE Routine 12/11/2006 7:01 PM APNS POC, BLOOD GASES Routine 12/11/2006 5:21 PM APNS CVR ONLY, CKMB/CK Routine 12/11/2006 4:5 9 PM APNS PT AND APTT Routine 12/11/2006 4:59 PM APNS CBC WITH DIFFERENTIAL Routine 12/11/2006 4:59 PM APNS CBC WITH DIFFERENTIAL Routine 12/11/2006 4:59 PM APNS MAGNESIUM LEVEL Routine 12/11/2006 4:59 PM APNS BASIC METABOLIC PANEL Routine 12/11/2006 4:59 PM APNS POC, BLOOD GASES Routine 12/11/2006 3:23 PM APNS POC, BLOOD GASES Routine 12/11/2006 1:11 PM APNS URINALYSIS W/REFLEX MICROSCOPIC Routine 12/11/2006 1:50 AM APNS COMPREHENSIVE METABOLIC PANEL Routine 12/10/2006 8:00 PM APNS POC ACTIVATED CLOTTING TIME Routine 12/10/2006 7:56 PM APNS documented in this encounter Results * (ABNORMAL) POC GLUCOSE (2006 8:51 AM APNS) GLUCOSE POC 137(H) 65 - 99 mg/dL INTERFACE SYSTEM 2006 8:51 AM APNS us Augusto Mckeon MD POINT OF CARE TESTING Shravansaeed pierce INTERFACE SYSTEM Refer to clinic/hospital department * POC GLUCOSE (12/13/2006 8:34 PM APNS) GLUCOSE POC 77 65 - 99 mg/dL INTERFACE SYSTEM 12/13/2006 8:34 PM APNS Augusto Mckeon MD POINT OF CARE TESTING Shravan stan Performing Organization Address [facility] Phone Number INTERFACE SYSTEM Refer to clinic/hospital department * (ABNORMAL) POC GLUCOSE (12/13/2006 4:32 PM APNS) COMMENT, GLU POC Notified RN INTERFACE SYSTEM GLUCOSE POC 131(H) 65 - 99 mg/dL INTERFACE SYSTEM 12/13/2006 4:32 PM APNS Augusto Mckeon MD POINT OF CARE TESTING Shravan stan Performing Organization Address [facility] Phone Number INTERFACE SYSTEM Refer to clinic/hospital department * (ABNORMAL) POC GLUCOSE (12/13/2006 11:33 AM APNS) COMMENT, GLU POC Notified RN INTERFACE SYSTEM GLUCOSE POC 128(H) 65 - 99 mg/dL INTERFACE SYSTEM 12/13/2006 11:3 3 AM APNS Augusto Mckeon MD POINT OF CARE TESTING Shravan stan Performing Organization Address [facility] Phone Number INTERFACE SYSTEM Refer to clinic/hospital department * (ABNORMAL) POC GLUCOSE (12/13/2006 7:06 AM APNS) COMMENT, GLU POC Notified RN INTERFACE SYSTEM GLUCOSE POC 136(H) 65 - 99 mg/dL INTERFACE SYSTEM 12/13/2006 7:06 AM APNS Augusto Mckeon MD POINT OF CARE TESTING Shravan stan Performing Organization Address [facility] de Phone Number INTERFACE SYSTEM Refer to clinic/hospital department * (ABNORMAL) CBC WITH DIFFERENTIAL (12/13/2006 6:27 AM APNS) NEUTROPHILS 76(H) 45 - 70 % INTERFAC [...] 0.20 K/uL INTERFACE SYSTEM 12/13/2006 6:27 AM APNS Berenice JOHNSON HEMATOLOGY ORDERABLES Edited Performing Organization Address City/[facility] de Phone Number INTERFACE SYSTEM Refer to clinic/hospital department * (ABNORMAL) CBC WITH DIFFERENTIAL (12/13/2006 6:27 AM APNS) WBC 11.2(H) 4.0 - 9.8 K/uL INTERFACE [...] 12.4 fL INTERFACE SYSTEM 12/13/2006 6:27 AM APNS Berenice JOHNSON HEMATOLOGY ORDERABLES Edited Performing Organization Address City/[facility] Co de Phone Number INTERFACE SYSTEM Refer to clinic/hospital department * MAGNESIUM LEVEL (12/13/2006 5:34 AM APNS) MAGNESIUM 2.4 1.5 - 2.5 mg/dL INTERFACE SYSTEM 12/13/2006 5:34 AM APNS Akash Lopez Jr., MD CHEMISTRY ORDERABLES Ed ited Performing Organization Address [facility] Phone Number INTERFACE SYSTEM Refer to clinic/hospital department * (ABNORMAL) BASIC METABOLIC PANEL (12/13/2006 5:34 AM APNS) GLUCOSE 109(H) 65 - 99 mg/dL INTERFACE [...] and non- Americans is available on the [facility] Intranet at: [email or web address] Select: Lab Policies and Procedures Select: Reference Ranges - GFR CALCIUM 8.3(L) 8.4 - 10.2 mg/dL INTERFACE SYSTEM Comment:Verified by repeat a nalysis. 12/13/2006 5:34 AM APNS us Akash Lopez Jr., MD CHEMISTRY ORDERABLES Ed ited Performing Organization Address [facility] Phone Number INTERFACE SYSTEM Refer to clinic/hospital department * (ABNORMAL) POC GLUCOSE (12/12/2006 9:50 PM APNS) GLUCOSE POC 126(H) 65 - 99 mg/dL INTERFACE SYSTEM 12/12/2006 9:50 PM APNS Augusto Mckeon MD POINT OF CARE TESTING Shravan stan Performing Organization Address [facility] Phone Number INTERFACE SYSTEM Refer to clinic/hospital department * (ABNORMAL) POC GLUCOSE (12/12/2006 5:29 PM APNS) GLUCOSE POC 124(H) 65 - 99 mg/dL INTERFACE SYSTEM 12/12/2006 5:29 PM APNS Augusto Mckeon MD POINT OF CARE TESTING Shravan stan Performing Organization Address [facility] Phone Number INTERFACE SYSTEM Refer to clinic/hospital department * (ABNORMAL) CK TOTAL, RELATIVE INDEX (12/12/2006 5:21 PM APNS) CK 1,354(H) 10 - 170 U/L INTERFACE SYSTEM CARDIAC RELATIVE INDEX 1.2 <=4.0 INTERFACE SYSTEM 12/12/2006 5:21 PM APNS Narrative INTERFACE SYSTEM - 12/12/2006 7:52 PM APNS Ordered by an unspecified provider. us Historical Provider CHEMISTRY ORDERABLES Edited Performing Organization Address [facility] Phone Number INTERFACE SYSTEM Refer to clinic/hospital department * (ABNORMAL) CKMB W/REFLEX CK (12/12/2006 5:21 PM APNS) CKMB 15.5(AA) <=6.7 ng/mL INTERFACE SYSTEM Comment:Persistent abnormal result CKMB INTERP See Below INTERFAC E SYSTEM Comment:Elevated CKMB,Consis tent with Myocardial Injury. 12/12/2006 5:21 PM APNS Narrative INTERFACE SYSTEM - 12/12/2006 7:30 PM APNS Ordered by an unspecified provider. Historical Provider CHEMISTRY ORDERABLES Edited Performing Organization Address [facility] Phone Number INTERFACE SYSTEM Refer to clinic/hospital department * (ABNORMAL) POC GLUCOSE (12/12/2006 12:05 PM APNS) GLUCOSE POC 128(H) 65 - 99 mg/dL INTERFACE SYSTEM 12/12/2006 12:0 5 PM APNS Augusto Mckeon MD POINT OF CARE TESTING Shravan stan Performing Organization Address [facility] Phone Number INTERFACE SYSTEM Refer to clinic/hospital department * (ABNORMAL) CVR ONLY, CKMB/CK (12/12/2006 10:15 AM APNS) CKMB 14.3(AA) <=6.7 ng/mL INTERFACE SYSTEM Comment:Persistent abnormal result CKMB INTERP See Below INTERFAC E SYSTEM Comment:Elevated CKMB,Consis tent with Myocardial Injury CK 1,002(H) 10 - 170 U/L INTERFACE SYSTEM CARDIAC RELATIVE INDEX 1.4 <=4.0 INTERFACE SYSTEM 12/12/2006 10:1 5 AM APNS Catalina Jaramillo PA-C CHEMISTRY ORDERABLES Edite d Performing Organization Address [facility] Phone Number INTERFACE SYSTEM Refer to clinic/hospital department * (ABNORMAL) POC GLUCOSE (12/12/2006 6:59 AM APNS) GLUCOSE POC 148(H) 65 - 99 mg/dL INTERFACE SYSTEM 12/12/2006 6:59 AM APNS Augusto Mckeon MD POINT OF CARE TESTING Shravan stan Performing Organization Address [facility] Phone Number INTERFACE SYSTEM Refer to clinic/hospital department * (ABNORMAL) POC RT, BLOOD GASES (12/12/2006 4:45 AM APNS) PH ARTERIAL 7.36 7.35 - 7.45 INTERFACE [...] TO RN INTERFACE SYSTEM 12/12/2006 4:45 AM APNS Augusto Mckeon MD CHEMISTRY ORDERABLES Edit ed Performing Organization Address [facility] de Phone Number INTERFACE SYSTEM Refer to clinic/hospital department * (ABNORMAL) CBC WITH DIFFERENTIAL (12/12/2006 4:00 AM APNS) NEUTROPHILS 85(H) 45 - 70 % INTERFAC [...] 0.20 K/uL INTERFACE SYSTEM 12/12/2006 4:00 AM APNS Catalina Jaramillo PA-C HEMATOLOGY ORDERABLES Edit ed Performing Organization Address [facility] de Phone Number INTERFACE SYSTEM Refer to clinic/hospital department * (ABNORMAL) CBC WITH DIFFERENTIAL (12/12/2006 4:00 AM APNS) WBC 13.8(H) 4.0 - 9.8 K/uL INTERFACE [...] 12.4 fL INTERFACE SYSTEM 12/12/2006 4:00 AM APNS Catalina Jaramillo PA-C HEMATOLOGY ORDERABLES Edit ed INTERFACE SYSTEM Refer to clinic/hospital department * (ABNORMAL) PT AND APTT (12/12/2006 4:00 AM APNS) PROTIME 15.1 12.7 - 15.1 Seconds INTERFACE SYSTEM INR 1.2(H) 0.9 - 1.1 INTERFACE SYSTEM Comment: INR Therapeutic Range: Adult: 2.0 - 3.0 for pulmonary embolism or prophylaxis against venous thrombosis or systemic embolization. 2.0 - 3.0 for patients with tissue heart valves. 2.5 - 3.5 for patients with mechanical heart valves or post OR. Pediatric (12 years and under): 1.5 - [...] range for unfractionated heparin 12/12/2006 4:00 AM APNS Catalina Jaramillo PA-C HEMATOLOGY ORDERABLES Edit ed INTERFACE SYSTEM Refer to clinic/hospital department * (ABNORMAL) COMPREHENSIVE METABOLIC PANEL (12/12/2006 4:00 AM APNS) GLUCOSE 142(H) 65 - 99 mg/dL INTERFACE [...] and non- Americans is available on the [facility] Intranet at: [email or web address] Select: Lab Policies and Procedures Select: Reference Ranges - GFR 12/12/2006 4:00 AM APNS Catalina Jaramillo PA-C CHEMISTRY ORDERABLES Edite d INTERFACE SYSTEM Refer to clinic/hospital department * MAGNESIUM LEVEL (12/12/2006 1:08 AM APNS) MAGNESIUM 2.2 1.5 - 2.5 mg/dL INTERFACE SYSTEM 12/12/2006 1:08 AM APNS Akash Lopez Jr., MD CHEMISTRY ORDERABLES Ed ited Performing Organization Address [facility] Phone Number INTERFACE SYSTEM Refer to clinic/hospital department * POTASSIUM LEVEL (12/12/2006 1:08 AM APNS) POTASSIUM 4.5 3.5 - 4.9 mmol/L INTERFACE SYSTEM 12/12/2006 1:08 AM APNS us Akash Lopez Jr., MD CHEMISTRY ORDERABLES Ed ited Performing Organization Address [facility] Phone Number INTERFACE SYSTEM Refer to clinic/hospital department * (ABNORMAL) POC GLUCOSE (12/12/2006 1:02 AM APNS) GLUCOSE POC 138(H) 65 - 99 mg/dL INTERFACE SYSTEM 12/12/2006 1:02 AM APNS us Augusto Mckeon MD POINT OF CARE TESTING Shravan stan Performing Organization Address [facility] Phone Number INTERFACE SYSTEM Refer to clinic/hospital department * (ABNORMAL) CVR ONLY, CKMB/CK (12/12/2006 1:00 AM APNS) CKMB 10.0(AA) <=6.7 ng/mL INTERFACE SYSTEM Comment:Results called to Eugene sanchez at 12/12/2006 1:53 AM and read back verified. CKMB INTERP See Below INTERFAC E SYSTEM Comment:Elevated CKMB,Consis tent with Myocardial Injury. CK 454(H) 10 - 170 U/L INTERFACE SYSTEM CARDIAC RELATIVE INDEX 2.2 <=4.0 INTERFACE SYSTEM 12/12/2006 1:00 AM APNS us Catalina Jaramillo PA-C CHEMISTRY ORDERABLES Edite d Performing Organization Address [facility] Phone Number INTERFACE SYSTEM Refer to clinic/hospital department * MAGNESIUM LEVEL (12/11/2006 9:25 PM APNS) MAGNESIUM 1.7 1.5 - 2.5 mg/dL INTERFACE SYSTEM 12/11/2006 9:25 PM APNS us Akash Lopez Jr., MD CHEMISTRY ORDERABLES Ed ited Performing Organization Address City/[facility] de Phone Number INTERFACE SYSTEM Refer to clinic/hospital department * POTASSIUM LEVEL (12/11/2006 9:25 PM APNS) POTASSIUM 3.9 3.5 - 4.9 mmol/L INTERFACE SYSTEM 12/11/2006 9:25 PM APNS us Akash Lopez Jr., MD CHEMISTRY ORDERABLES Ed ited Performing Organization Address [facility] Phone Number INTERFACE SYSTEM Refer to clinic/hospital department * (ABNORMAL) POC GLUCOSE (12/11/2006 7:01 PM APNS) GLUCOSE POC 141(H) 65 - 99 mg/dL INTERFACE SYSTEM 12/11/2006 7:01 PM APNS us Augusto Mckeon MD POINT OF CARE TESTING Shravan stan Performing Organization Address [facility] de Phone Number INTERFACE SYSTEM Refer to clinic/hospital department * (ABNORMAL) POC RT, BLOOD GASES (12/11/2006 5:21 PM APNS) PH ARTERIAL 7.39 7.35 - 7.45 INTERFACE [...] RN NOTIFIED INTERFACE SYSTEM 12/11/2006 5:21 PM APNS Augusto Mckeon MD CHEMISTRY ORDERABLES Edit ed Performing Organization Address [facility] de Phone Number INTERFACE SYSTEM Refer to clinic/hospital department * CVR ONLY, CKMB/CK (12/11/2006 4:59 PM APNS) CKMB 3.0 <=6.7 ng/mL INTERFACE SYSTEM CKMB INTERP Negative INTERFAC E SYSTEM CK 113 10 - 170 U/L INTERFACE SYSTEM CARDIAC RELATIVE INDEX N/A <=4.0 INTERFACE SYSTEM 12/11/2006 4:59 PM APNS Catalina Jaramillo PA-C CHEMISTRY ORDERABLES Edite d Performing Organization Address [facility] Phone Number INTERFACE SYSTEM Refer to clinic/hospital department * (ABNORMAL) CBC WITH DIFFERENTIAL (12/11/2006 4:59 PM APNS) NEUTROPHILS 76(H) 45 - 70 % INTERFAC [...] 0.20 K/uL INTERFACE SYSTEM 12/11/2006 4:59 PM APNS Result [facility] Catalina Jaramillo PA-C HEMATOLOGY ORDERABLES Edit ed Performing Organization Address [facility] de Phone Number INTERFACE SYSTEM Refer to clinic/hospital department * (ABNORMAL) CBC WITH DIFFERENTIAL (12/11/2006 4:59 PM APNS) WBC 23.3(H) 4.0 - 9.8 K/uL INTERFACE [...] 12.4 fL INTERFACE SYSTEM 12/11/2006 4:59 PM APNS Catalina Jaramillo PA-C HEMATOLOGY ORDERABLES Edit ed INTERFACE SYSTEM Refer to clinic/hospital department * (ABNORMAL) PT AND APTT (12/11/2006 4:59 PM APNS) PROTIME 15.1 12.7 - 15.1 Seconds INTERFACE SYSTEM INR 1.2(H) 0.9 - 1.1 INTERFACE SYSTEM Comment: INR Therapeutic Range: Adult: 2.0 - 3.0 for pulmonary embolism or prophylaxis against venous thrombosis or systemic embolization. 2.0 - 3.0 for patients with tissue heart valves. 2.5 - 3.5 for patients with mechanical heart valves or post OR. Pediatric (12 years and under): 1.5 - [...] range for unfractionated heparin 12/11/2006 4:59 PM APNS Catalina Jaramillo PA-C HEMATOLOGY ORDERABLES Edit ed Performing Organization Address [facility] Phone Number INTERFACE SYSTEM Refer to clinic/hospital department * MAGNESIUM LEVEL (12/11/2006 4:59 PM APNS) MAGNESIUM 1.9 1.5 - 2.5 mg/dL INTERFACE SYSTEM 12/11/2006 4:59 PM APNS Catalina Jaramillo PA-C CHEMISTRY ORDERABLES Edite d Performing Organization Address [facility] Phone Number INTERFACE SYSTEM Refer to clinic/hospital department * (ABNORMAL) BASIC METABOLIC PANEL (12/11/2006 4:59 PM APNS) GLUCOSE 122(H) 65 - 99 mg/dL INTERFACE [...] and non- Americans is available on the [facility] Intranet at: [email or web address] Select: Lab Policies and Procedures Select: Reference Ranges - GFR 12/11/2006 4:59 PM APNS Catalina Jaramillo PA-C CHEMISTRY ORDERABLES Edite d Performing Organization Address [facility]/ZIP Co de Phone Number INTERFACE SYSTEM Refer to clinic/hospital department * (ABNORMAL) POC RT, BLOOD GASES (12/11/2006 3:23 PM APNS) PH ARTERIAL 7.42 7.35 - 7.45 INTERF [...] 99 mg/dL INTERFACE SYSTEM 12/11/2006 3:23 PM APNS us Augusto Mckeon MD CHEMISTRY ORDERABLES Edit ed INTERFACE SYSTEM Refer to clinic/hospital department * (ABNORMAL) POC RT, BLOOD GASES (12/11/2006 1:11 PM APNS) PH ARTERIAL 7.41 7.35 - 7.45 INTERFACE [...] 99 mg/dL INTERFACE SYSTEM 12/11/2006 1:11 PM APNS us Augusto Mckeon MD CHEMISTRY ORDERABLES Edit ed Performing Organization Address [facility] Phone Number INTERFACE SYSTEM Refer to clinic/hospital department * URINALYSIS (12/11/2006 1:50 AM APNS) COLOR UA Yellow INTERFACE SYSTEM CLARITY UA [...] Negative Negative INTERFACE SYSTEM 12/11/2006 1:50 AM APNS us Akash Lopez Jr., MD URINE ORDERABLES Edited Performing Organization Address [facility] Phone Number INTERFACE SYSTEM Refer to clinic/hospital department * (ABNORMAL) COMPREHENSIVE METABOLIC PANEL (12/10/2006 8:00 PM APNS) GLUCOSE 99 65 - 99 mg/dL INTERFACE [...] and non- Americans is available on the [facility] Intranet at: [email or web address] Select: Lab Policies and Procedures Select: Reference Ranges - GFR 12/10/2006 8:00 PM APNS us Akash Lopez Jr., MD CHEMISTRY ORDERABLES Ed ited Performing Organization Address City/[facility] Co de Phone Number INTERFACE SYSTEM Refer to clinic/hospital department * POC ACTIVATED CLOTTING TIME (12/10/2006 7:56 PM APNS) ACT POC 119 Seconds INTERFACE SYSTEM Comment: Note sheath pull range change effective 05/17/2006. ACT value for sheath pull at [facility] has been established to be < or = to 1 40. (See also Nursing Procedures for sheath pull in related nursing areas) 12/10/2006 7:56 PM APNS us Augusto Mckeon MD POINT OF CARE TESTING Shravan stan Performing Organization Address [facility] de Phone Number INTERFACE SYSTEM Refer to clinic/hospital department documented in this encounter Visit Diagnoses Diagnosis Coronary atherosclerosis of [place] coronary artery- Primary documented in this encounter Care Teams Chief Creative Officer Relationship Specialty Start Date End Date Danish Ramírez MD [address] [place] [address] PCP - General 12/10/06 documented as of this encounter
--- OUTSIDE RECORDS SUMMARY | 2025-02-22 11:29 | XMS_ITS | Encounter Summary ---
Author Organization [facility] Address [address] [place] [address] Care Team Providers Care Anatomic Pathologist Name Role Phone Danish Ramírez MD Primary Care Provider [phone] Encounter Details Date Type Department Care Team (Late st Contact Info) Description 12/11/2006 Outpatient Historical [facility] Cardiovas and Thor Surg at [facility] [address] [facility] [address] [place] [address] Sabina Ibrahim MD [address] [address] [place] [address] Social History Tobacco Use Types Packs/Day Years Used Date Smoking Tobacco: Never Assessed Sex and Gender Information Value Date Recorded Sex Assigned at Not on file 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
[2025-02-22 13:28] LABS: Basophils Absolute Auto 0.1 K/mm3 (0.0-0.1); Basophils Percent Auto 0.9 % (0.2-1.2); Eosinophils Absolute Auto 0.3 K/mm3 (0-0.3); Eosinophils Percent Auto 4.2 % (0-4.4); Hematocrit 40.2 % (42.0-52.0); Hemoglobin 12.8 g/dL (14.0-18.0); Immature Granulocyte Absolute 0.02 K/mm3 (0.00-0.031); Immature Granulocyte Percent A 0.3 % (0-0.5); Lymphocytes Absolute Auto 1.78 K/mm3 (0.9-3.2); Lymphocytes Percent Auto 23.2 % (18.3-44.2); Mean Corpuscular HGB Conc 31.8 g/dl (32-36); Mean Corpuscular Hemoglobin 30.2 pg (26-34); Mean Corpuscular Volume 94.8 fl (80-100); Mean Platelet Volume 10.8 fl (7.4-10.4); Monocytes Absolute Auto 0.7 K/mm3 (0.1-0.6); Monocytes Percent Auto 8.6 % (2.6-8.5); Neutrophils Absolute Auto 4.8 K/mm3 (1.3-6.7); Neutrophils Percent Auto 62.8 % (45.5-73.1); Platelet Count Result 259 k/mm3 (150-375); Red Blood Count 4.24 M/mm3 (4.6-6.20); Red Cell Distribution Width 12.7 % (11.5-14.5); White Blood Count 7.7 K/mm3 (4.5-10.0)
[2025-02-22 13:38] LABS: Add Urine Microscopic? NO; Appearance Urine Clear (Clear); Bilirubin Urine Negative (Negative); Blood Urine Negative (Negative); Color Urine Yellow (Yellow); Glucose Urine UA Negative (Negative); Ketones Urine Negative (Negative); Leukocyte Esterase Ur Negative LEU/UL (Negative); Nitrate Urine Negative (Negative); Protein Urine Negative (Negative); Specific Grav Ur 1.016 (1.001-1.035); Urobilinogen Urine 0.2 mg/dL (<2.0); pH Urine 5.5 (5.0-9.0)
[2025-02-22 14:29] LABS: Alanine Aminotransferase 18 U/L (6-50); Albumin Level 4.5 g/dL (3.5-5.1); Alkaline Phosphatase 75 U/L (38-126); Anion Gap 11 mmol/L (4-12); Aspartate Amino Transferase 49 U/L (17-59); Bilirubin,Total 0.6 mg/dL (0.2-1.3); Blood Urea Nitrogen 34 mg/dL (9-20); Calcium 9.9 mg/dL (8.4-10.2); Carbon Dioxide 31 mmol/L (22-30); Chloride 96 mmol/L (98-107); Estimated Glomerular Filt Rate 54; Glucose 97 mg/dL (65-110); Potassium 4.8 mmol/L (3.4-5.0); Sodium 138 mmol/L (137-145)
[2025-02-22 14:30] LABS: Thyroid Stimulating Hormone Reflex 0.031 uIU/mL (0.465-4.68)
[2025-02-22 14:36] LABS: NT Pro B Type Natriuretic Pept 482 pg/mL (19.9-100)
[2025-02-22 14:58] LABS: Thyroid Stimulating Hormone 0.029 uIU/mL (0.465-4.680)
[2025-02-22 15:18] LABS: Free T4 Free Thyroxine Reflex 2.29 ng/dL (0.78-2.19)
== END 2025-02-22 10:17 | disposition home or self-care (01) ==
LOC: ANHGOSHLAB 10:18
PROVIDERS: PCP Family Medicine; Visit Provider Family Medicine
DX: I50.9 Heart failure, unspecified (principal); I11.0 Hypertensive heart disease with heart failure; E03.9 Hypothyroidism, unspecified; R30.0 Dysuria; R53.83 Other fatigue; I25.10 Atherosclerotic heart disease of native coronary artery without angina pectoris
CPT/HCPCS: 36415; 80053; 81003; 83880; 84439; 84443; 85025

== ENCOUNTER 2025-06-30 09:04 | Outpatient (CLI) | payer MEDICARE, OTHER, SELFPAY ==
--- OUTSIDE RECORDS SUMMARY | 2025-06-30 09:26 | XMS_ITS | Encounter Summary ---
Author Organization [employer] Address [address] [place] [address] Care Team Providers Care Rn Mds Coordinator Name Role Phone Danish Ramírez MD Primary Care Provider [phone] Encounter Details Date Type Department Care Team (Latest Contact Info) Description 12/10/2006 Inpatient Historical HIS PATIENT IN A BED Akash Lopez Jr., MD NO ADDRESS ON FILE Augusto Mckeon MD [address] [address] Coronary Atherosclerosis of [place] Coronary Artery (Primary Dx) Social History Tobacco Use Types Packs/Day Years Used Date Smoking Tobacco: Never Assessed Sex and Gender Information Value Date Recorded Sex Assigned at Not on file Legal Sex Male 5:17 AM PRESSURE VESSEL INSPECTOR Gender Identity Not on file Sexual Orientation Not on file documented as of this encounter Plan of Treatment Not on file documented as of this encounter Procedures Procedure Name Priority Date/Time Associated Diagnosis Comments POC GLUCOSE Routine 2006 8:51 AM PRESSURE VESSEL INSPECTOR POC GLUCOSE Routine 12/13/2006 8:34 PM PRESSURE VESSEL INSPECTOR POC GLUCOSE Routine 12/13/2006 4:32 PM PRESSURE VESSEL INSPECTOR POC GLUCOSE Routine 12/13/2006 11:33 AM PRESSURE VESSEL INSPECTOR POC GLUCOSE Routine 12/13/2006 7:06 AM PRESSURE VESSEL INSPECTOR CBC WITH DIFFERENTIAL Routine 12/13/2006 6:27 AM PRESSURE VESSEL INSPECTOR CBC WITH DIFFERENTIAL Routine 12/13/2006 6:27 AM PRESSURE VESSEL INSPECTOR MAGNESIUM LEVEL Routine 12/13/2006 5:34 AM PRESSURE VESSEL INSPECTOR BASIC METABOLIC PANEL Routine 12/13/2006 5:34 AM PRESSURE VESSEL INSPECTOR POC GLUCOSE Routine 12/12/2006 9:50 PM PRESSURE VESSEL INSPECTOR POC GLUCOSE Routine 12/12/2006 5:29 PM PRESSURE VESSEL INSPECTOR CK TOTAL, RELATIVE INDEX Routine 12/12/2006 5:21 PM PRESSURE VESSEL INSPECTOR CKMB W/REFLEX CK Routine 12/12/2006 5:21 PM PRESSURE VESSEL INSPECTOR POC GLUCOSE Routine 12/12/2006 12:05 PM PRESSURE VESSEL INSPECTOR CVR ONLY, CKMB/CK Routine 12/12/2006 10: 15 AM PRESSURE VESSEL INSPECTOR POC GLUCOSE Routine 12/12/2006 6:59 AM PRESSURE VESSEL INSPECTOR POC, BLOOD GASES Routine 12/12/2006 4:45 AM PRESSURE VESSEL INSPECTOR PT AND APTT Routine 12/12/2006 4:00 AM PRESSURE VESSEL INSPECTOR CBC WITH DIFFERENTIAL Routine 12/12/2006 4:00 AM PRESSURE VESSEL INSPECTOR CBC WITH DIFFERENTIAL Routine 12/12/2006 4:00 AM PRESSURE VESSEL INSPECTOR COMPREHENSIVE METABOLIC PANEL Routine 12/12/2006 4:00 AM PRESSURE VESSEL INSPECTOR POTASSIUM LEVEL Routine 12/12/2006 1:08 AM PRESSURE VESSEL INSPECTOR MAGNESIUM LEVEL Routine 12/12/2006 1:08 AM PRESSURE VESSEL INSPECTOR POC GLUCOSE Routine 12/12/2006 1:02 AM PRESSURE VESSEL INSPECTOR CVR ONLY, CKMB/CK Routine 12/12/2006 1:0 0 AM PRESSURE VESSEL INSPECTOR POTASSIUM LEVEL Routine 12/11/2006 9:25 PM PRESSURE VESSEL INSPECTOR MAGNESIUM LEVEL Routine 12/11/2006 9:25 PM PRESSURE VESSEL INSPECTOR POC GLUCOSE Routine 12/11/2006 7:01 PM PRESSURE VESSEL INSPECTOR POC, BLOOD GASES Routine 12/11/2006 5:21 PM PRESSURE VESSEL INSPECTOR CVR ONLY, CKMB/CK Routine 12/11/2006 4:5 9 PM PRESSURE VESSEL INSPECTOR PT AND APTT Routine 12/11/2006 4:59 PM PRESSURE VESSEL INSPECTOR CBC WITH DIFFERENTIAL Routine 12/11/2006 4:59 PM PRESSURE VESSEL INSPECTOR CBC WITH DIFFERENTIAL Routine 12/11/2006 4:59 PM PRESSURE VESSEL INSPECTOR MAGNESIUM LEVEL Routine 12/11/2006 4:59 PM PRESSURE VESSEL INSPECTOR BASIC METABOLIC PANEL Routine 12/11/2006 4:59 PM PRESSURE VESSEL INSPECTOR POC, BLOOD GASES Routine 12/11/2006 3:23 PM PRESSURE VESSEL INSPECTOR POC, BLOOD GASES Routine 12/11/2006 1:11 PM PRESSURE VESSEL INSPECTOR URINALYSIS W/REFLEX MICROSCOPIC Routine 12/11/2006 1:50 AM PRESSURE VESSEL INSPECTOR COMPREHENSIVE METABOLIC PANEL Routine 12/10/2006 8:00 PM PRESSURE VESSEL INSPECTOR POC ACTIVATED CLOTTING TIME Routine 12/10/2006 7:56 PM PRESSURE VESSEL INSPECTOR documented in this encounter Results * (ABNORMAL) POC GLUCOSE (2006 8:51 AM PRESSURE VESSEL INSPECTOR) GLUCOSE POC 137(H) 65 - 99 mg/dL INTERFACE SYSTEM 2006 8:51 AM PRESSURE VESSEL INSPECTOR us Augusto Mckeon MD POINT OF CARE TESTING Shravansaeed pierce INTERFACE SYSTEM Refer to clinic/hospital department * POC GLUCOSE (12/13/2006 8:34 PM PRESSURE VESSEL INSPECTOR) GLUCOSE POC 77 65 - 99 mg/dL INTERFACE SYSTEM 12/13/2006 8:34 PM PRESSURE VESSEL INSPECTOR Augusto Mckeon MD POINT OF CARE TESTING Shravan stan Performing Organization Address [facility] Phone Number INTERFACE SYSTEM Refer to clinic/hospital department * (ABNORMAL) POC GLUCOSE (12/13/2006 4:32 PM PRESSURE VESSEL INSPECTOR) COMMENT, GLU POC Notified RN INTERFACE SYSTEM GLUCOSE POC 131(H) 65 - 99 mg/dL INTERFACE SYSTEM 12/13/2006 4:32 PM PRESSURE VESSEL INSPECTOR Augusto Mckeon MD POINT OF CARE TESTING Shravan stan Performing Organization Address [facility] Phone Number INTERFACE SYSTEM Refer to clinic/hospital department * (ABNORMAL) POC GLUCOSE (12/13/2006 11:33 AM PRESSURE VESSEL INSPECTOR) COMMENT, GLU POC Notified RN INTERFACE SYSTEM GLUCOSE POC 128(H) 65 - 99 mg/dL INTERFACE SYSTEM 12/13/2006 11:3 3 AM PRESSURE VESSEL INSPECTOR Augusto Mckeon MD POINT OF CARE TESTING Shravan stan Performing Organization Address [facility] Phone Number INTERFACE SYSTEM Refer to clinic/hospital department * (ABNORMAL) POC GLUCOSE (12/13/2006 7:06 AM PRESSURE VESSEL INSPECTOR) COMMENT, GLU POC Notified RN INTERFACE SYSTEM GLUCOSE POC 136(H) 65 - 99 mg/dL INTERFACE SYSTEM 12/13/2006 7:06 AM PRESSURE VESSEL INSPECTOR Augusto Mckeon MD POINT OF CARE TESTING Shravan stan Performing Organization Address [facility] de Phone Number INTERFACE SYSTEM Refer to clinic/hospital department * (ABNORMAL) CBC WITH DIFFERENTIAL (12/13/2006 6:27 AM PRESSURE VESSEL INSPECTOR) NEUTROPHILS 76(H) 45 - 70 % INTERFAC [...] 0.20 K/uL INTERFACE SYSTEM 12/13/2006 6:27 AM PRESSURE VESSEL INSPECTOR Berenice JOHNSON HEMATOLOGY ORDERABLES Edited Performing Organization Address [place]/[facility] de Phone Number INTERFACE SYSTEM Refer to clinic/hospital department * (ABNORMAL) CBC WITH DIFFERENTIAL (12/13/2006 6:27 AM PRESSURE VESSEL INSPECTOR) WBC 11.2(H) 4.0 - 9.8 K/uL INTERFACE [...] 12.4 fL INTERFACE SYSTEM 12/13/2006 6:27 AM PRESSURE VESSEL INSPECTOR Berenice JOHNSON HEMATOLOGY ORDERABLES Edited Performing Organization Address [facility] Co de Phone Number INTERFACE SYSTEM Refer to clinic/hospital department * MAGNESIUM LEVEL (12/13/2006 5:34 AM PRESSURE VESSEL INSPECTOR) MAGNESIUM 2.4 1.5 - 2.5 mg/dL INTERFACE SYSTEM 12/13/2006 5:34 AM PRESSURE VESSEL INSPECTOR Akash Lopez Jr., MD CHEMISTRY ORDERABLES Ed ited Performing Organization Address [facility] Phone Number INTERFACE SYSTEM Refer to clinic/hospital department * (ABNORMAL) BASIC METABOLIC PANEL (12/13/2006 5:34 AM PRESSURE VESSEL INSPECTOR) GLUCOSE 109(H) 65 - 99 mg/dL INTERFACE [...] and non- Americans is available on the [facility] Intranet at: [email or web address] Select: Lab Policies and Procedures Select: Reference Ranges - GFR CALCIUM 8.3(L) 8.4 - 10.2 mg/dL INTERFACE SYSTEM Comment:Verified by repeat a nalysis. 12/13/2006 5:34 AM PRESSURE VESSEL INSPECTOR us Akash Lopez Jr., MD CHEMISTRY ORDERABLES Ed ited Performing Organization Address [facility] Phone Number INTERFACE SYSTEM Refer to clinic/hospital department * (ABNORMAL) POC GLUCOSE (12/12/2006 9:50 PM PRESSURE VESSEL INSPECTOR) GLUCOSE POC 126(H) 65 - 99 mg/dL INTERFACE SYSTEM 12/12/2006 9:50 PM PRESSURE VESSEL INSPECTOR Augusto Mckeon MD POINT OF CARE TESTING Shravan stan Performing Organization Address [facility] Phone Number INTERFACE SYSTEM Refer to clinic/hospital department * (ABNORMAL) POC GLUCOSE (12/12/2006 5:29 PM PRESSURE VESSEL INSPECTOR) GLUCOSE POC 124(H) 65 - 99 mg/dL INTERFACE SYSTEM 12/12/2006 5:29 PM PRESSURE VESSEL INSPECTOR Augusto Mckeon MD POINT OF CARE TESTING Shravan stan Performing Organization Address [facility] Phone Number INTERFACE SYSTEM Refer to clinic/hospital department * (ABNORMAL) CK TOTAL, RELATIVE INDEX (12/12/2006 5:21 PM PRESSURE VESSEL INSPECTOR) CK 1,354(H) 10 - 170 U/L INTERFACE SYSTEM CARDIAC RELATIVE INDEX 1.2 <=4.0 INTERFACE SYSTEM 12/12/2006 5:21 PM PRESSURE VESSEL INSPECTOR Narrative INTERFACE SYSTEM - 12/12/2006 7:52 PM PRESSURE VESSEL INSPECTOR Ordered by an unspecified provider. us Historical Provider CHEMISTRY ORDERABLES Edited Performing Organization Address [facility] Phone Number INTERFACE SYSTEM Refer to clinic/hospital department * (ABNORMAL) CKMB W/REFLEX CK (12/12/2006 5:21 PM PRESSURE VESSEL INSPECTOR) CKMB 15.5(AA) <=6.7 ng/mL INTERFACE SYSTEM Comment:Persistent abnormal result CKMB INTERP See Below INTERFAC E SYSTEM Comment:Elevated CKMB,Consis tent with Myocardial Injury. 12/12/2006 5:21 PM PRESSURE VESSEL INSPECTOR Narrative INTERFACE SYSTEM - 12/12/2006 7:30 PM PRESSURE VESSEL INSPECTOR Ordered by an unspecified provider. Historical Provider CHEMISTRY ORDERABLES Edited Performing Organization Address [facility] Phone Number INTERFACE SYSTEM Refer to clinic/hospital department * (ABNORMAL) POC GLUCOSE (12/12/2006 12:05 PM PRESSURE VESSEL INSPECTOR) GLUCOSE POC 128(H) 65 - 99 mg/dL INTERFACE SYSTEM 12/12/2006 12:0 5 PM PRESSURE VESSEL INSPECTOR Augusto Mckeon MD POINT OF CARE TESTING Shravan stan Performing Organization Address [facility] Phone Number INTERFACE SYSTEM Refer to clinic/hospital department * (ABNORMAL) CVR ONLY, CKMB/CK (12/12/2006 10:15 AM PRESSURE VESSEL INSPECTOR) CKMB 14.3(AA) <=6.7 ng/mL INTERFACE SYSTEM Comment:Persistent abnormal result CKMB INTERP See Below INTERFAC E SYSTEM Comment:Elevated CKMB,Consis tent with Myocardial Injury CK 1,002(H) 10 - 170 U/L INTERFACE SYSTEM CARDIAC RELATIVE INDEX 1.4 <=4.0 INTERFACE SYSTEM 12/12/2006 10:1 5 AM PRESSURE VESSEL INSPECTOR Catalina Jaramillo PA-C CHEMISTRY ORDERABLES Edite d Performing Organization Address [facility] Phone Number INTERFACE SYSTEM Refer to clinic/hospital department * (ABNORMAL) POC GLUCOSE (12/12/2006 6:59 AM PRESSURE VESSEL INSPECTOR) GLUCOSE POC 148(H) 65 - 99 mg/dL INTERFACE SYSTEM 12/12/2006 6:59 AM PRESSURE VESSEL INSPECTOR Augusto Mckeon MD POINT OF CARE TESTING Shravan stan Performing Organization Address [facility] Phone Number INTERFACE SYSTEM Refer to clinic/hospital department * (ABNORMAL) POC RT, BLOOD GASES (12/12/2006 4:45 AM PRESSURE VESSEL INSPECTOR) PH ARTERIAL 7.36 7.35 - 7.45 INTERFACE [...] TO RN INTERFACE SYSTEM 12/12/2006 4:45 AM PRESSURE VESSEL INSPECTOR Augusto Mckeon MD CHEMISTRY ORDERABLES Edit ed Performing Organization Address [facility] de Phone Number INTERFACE SYSTEM Refer to clinic/hospital department * (ABNORMAL) CBC WITH DIFFERENTIAL (12/12/2006 4:00 AM PRESSURE VESSEL INSPECTOR) NEUTROPHILS 85(H) 45 - 70 % INTERFAC [...] 0.20 K/uL INTERFACE SYSTEM 12/12/2006 4:00 AM PRESSURE VESSEL INSPECTOR Catalina Jaramillo PA-C HEMATOLOGY ORDERABLES Edit ed Performing Organization Address [facility] de Phone Number INTERFACE SYSTEM Refer to clinic/hospital department * (ABNORMAL) CBC WITH DIFFERENTIAL (12/12/2006 4:00 AM PRESSURE VESSEL INSPECTOR) WBC 13.8(H) 4.0 - 9.8 K/uL INTERFACE [...] 12.4 fL INTERFACE SYSTEM 12/12/2006 4:00 AM PRESSURE VESSEL INSPECTOR Catalina Jaramillo PA-C HEMATOLOGY ORDERABLES Edit ed INTERFACE SYSTEM Refer to clinic/hospital department * (ABNORMAL) PT AND APTT (12/12/2006 4:00 AM PRESSURE VESSEL INSPECTOR) PROTIME 15.1 12.7 - 15.1 Seconds INTERFACE SYSTEM INR 1.2(H) 0.9 - 1.1 INTERFACE SYSTEM Comment: INR Therapeutic Range: Adult: 2.0 - 3.0 for pulmonary embolism or prophylaxis against venous thrombosis or systemic embolization. 2.0 - 3.0 for patients with tissue heart valves. 2.5 - 3.5 for patients with mechanical heart valves or post ME. Pediatric (12 years and under): 1.5 - [...] range for unfractionated heparin 12/12/2006 4:00 AM PRESSURE VESSEL INSPECTOR Catalina Jaramillo PA-C HEMATOLOGY ORDERABLES Edit ed INTERFACE SYSTEM Refer to clinic/hospital department * (ABNORMAL) COMPREHENSIVE METABOLIC PANEL (12/12/2006 4:00 AM PRESSURE VESSEL INSPECTOR) GLUCOSE 142(H) 65 - 99 mg/dL INTERFACE [...] and non- Americans is available on the [facility] Intranet at: [email or web address] Select: Lab Policies and Procedures Select: Reference Ranges - GFR 12/12/2006 4:00 AM PRESSURE VESSEL INSPECTOR Catalina Jaramillo PA-C CHEMISTRY ORDERABLES Edite d INTERFACE SYSTEM Refer to clinic/hospital department * MAGNESIUM LEVEL (12/12/2006 1:08 AM PRESSURE VESSEL INSPECTOR) MAGNESIUM 2.2 1.5 - 2.5 mg/dL INTERFACE SYSTEM 12/12/2006 1:08 AM PRESSURE VESSEL INSPECTOR Akash Lopez Jr., MD CHEMISTRY ORDERABLES Ed ited Performing Organization Address [facility] Phone Number INTERFACE SYSTEM Refer to clinic/hospital department * POTASSIUM LEVEL (12/12/2006 1:08 AM PRESSURE VESSEL INSPECTOR) POTASSIUM 4.5 3.5 - 4.9 mmol/L INTERFACE SYSTEM 12/12/2006 1:08 AM PRESSURE VESSEL INSPECTOR us Akash Lopez Jr., MD CHEMISTRY ORDERABLES Ed ited Performing Organization Address [facility] Phone Number INTERFACE SYSTEM Refer to clinic/hospital department * (ABNORMAL) POC GLUCOSE (12/12/2006 1:02 AM PRESSURE VESSEL INSPECTOR) GLUCOSE POC 138(H) 65 - 99 mg/dL INTERFACE SYSTEM 12/12/2006 1:02 AM PRESSURE VESSEL INSPECTOR us Augusto Mckeon MD POINT OF CARE TESTING Shravan stan Performing Organization Address [facility] Phone Number INTERFACE SYSTEM Refer to clinic/hospital department * (ABNORMAL) CVR ONLY, CKMB/CK (12/12/2006 1:00 AM PRESSURE VESSEL INSPECTOR) CKMB 10.0(AA) <=6.7 ng/mL INTERFACE SYSTEM Comment:Results called to Eugene sanchez at 12/12/2006 1:53 AM and read back verified. CKMB INTERP See Below INTERFAC E SYSTEM Comment:Elevated CKMB,Consis tent with Myocardial Injury. CK 454(H) 10 - 170 U/L INTERFACE SYSTEM CARDIAC RELATIVE INDEX 2.2 <=4.0 INTERFACE SYSTEM 12/12/2006 1:00 AM PRESSURE VESSEL INSPECTOR us Catalina Jaramillo PA-C CHEMISTRY ORDERABLES Edite d Performing Organization Address [facility] Phone Number INTERFACE SYSTEM Refer to clinic/hospital department * MAGNESIUM LEVEL (12/11/2006 9:25 PM PRESSURE VESSEL INSPECTOR) MAGNESIUM 1.7 1.5 - 2.5 mg/dL INTERFACE SYSTEM 12/11/2006 9:25 PM PRESSURE VESSEL INSPECTOR us Akash Lopez Jr., MD CHEMISTRY ORDERABLES Ed ited Performing Organization Address [place]/[facility] de Phone Number INTERFACE SYSTEM Refer to clinic/hospital department * POTASSIUM LEVEL (12/11/2006 9:25 PM PRESSURE VESSEL INSPECTOR) POTASSIUM 3.9 3.5 - 4.9 mmol/L INTERFACE SYSTEM 12/11/2006 9:25 PM PRESSURE VESSEL INSPECTOR us Akash Lopez Jr., MD CHEMISTRY ORDERABLES Ed ited Performing Organization Address [facility] Phone Number INTERFACE SYSTEM Refer to clinic/hospital department * (ABNORMAL) POC GLUCOSE (12/11/2006 7:01 PM PRESSURE VESSEL INSPECTOR) GLUCOSE POC 141(H) 65 - 99 mg/dL INTERFACE SYSTEM 12/11/2006 7:01 PM PRESSURE VESSEL INSPECTOR us Augusto Mckeon MD POINT OF CARE TESTING Shravan stan Performing Organization Address [facility] de Phone Number INTERFACE SYSTEM Refer to clinic/hospital department * (ABNORMAL) POC RT, BLOOD GASES (12/11/2006 5:21 PM PRESSURE VESSEL INSPECTOR) PH ARTERIAL 7.39 7.35 - 7.45 INTERFACE [...] RN NOTIFIED INTERFACE SYSTEM 12/11/2006 5:21 PM PRESSURE VESSEL INSPECTOR Augusto Mckeon MD CHEMISTRY ORDERABLES Edit ed Performing Organization Address [facility] de Phone Number INTERFACE SYSTEM Refer to clinic/hospital department * CVR ONLY, CKMB/CK (12/11/2006 4:59 PM PRESSURE VESSEL INSPECTOR) CKMB 3.0 <=6.7 ng/mL INTERFACE SYSTEM CKMB INTERP Negative INTERFAC E SYSTEM CK 113 10 - 170 U/L INTERFACE SYSTEM CARDIAC RELATIVE INDEX N/A <=4.0 INTERFACE SYSTEM 12/11/2006 4:59 PM PRESSURE VESSEL INSPECTOR Catalina Jaramillo PA-C CHEMISTRY ORDERABLES Edite d Performing Organization Address [facility] Phone Number INTERFACE SYSTEM Refer to clinic/hospital department * (ABNORMAL) CBC WITH DIFFERENTIAL (12/11/2006 4:59 PM PRESSURE VESSEL INSPECTOR) NEUTROPHILS 76(H) 45 - 70 % INTERFAC [...] 0.20 K/uL INTERFACE SYSTEM 12/11/2006 4:59 PM PRESSURE VESSEL INSPECTOR Result [facility] Catalina Jaramillo PA-C HEMATOLOGY ORDERABLES Edit ed Performing Organization Address [facility] de Phone Number INTERFACE SYSTEM Refer to clinic/hospital department * (ABNORMAL) CBC WITH DIFFERENTIAL (12/11/2006 4:59 PM PRESSURE VESSEL INSPECTOR) WBC 23.3(H) 4.0 - 9.8 K/uL INTERFACE [...] 12.4 fL INTERFACE SYSTEM 12/11/2006 4:59 PM PRESSURE VESSEL INSPECTOR Catalina Jaramillo PA-C HEMATOLOGY ORDERABLES Edit ed INTERFACE SYSTEM Refer to clinic/hospital department * (ABNORMAL) PT AND APTT (12/11/2006 4:59 PM PRESSURE VESSEL INSPECTOR) PROTIME 15.1 12.7 - 15.1 Seconds INTERFACE SYSTEM INR 1.2(H) 0.9 - 1.1 INTERFACE SYSTEM Comment: INR Therapeutic Range: Adult: 2.0 - 3.0 for pulmonary embolism or prophylaxis against venous thrombosis or systemic embolization. 2.0 - 3.0 for patients with tissue heart valves. 2.5 - 3.5 for patients with mechanical heart valves or post ME. Pediatric (12 years and under): 1.5 - [...] range for unfractionated heparin 12/11/2006 4:59 PM PRESSURE VESSEL INSPECTOR Catalina Jaramillo PA-C HEMATOLOGY ORDERABLES Edit ed Performing Organization Address [facility] Phone Number INTERFACE SYSTEM Refer to clinic/hospital department * MAGNESIUM LEVEL (12/11/2006 4:59 PM PRESSURE VESSEL INSPECTOR) MAGNESIUM 1.9 1.5 - 2.5 mg/dL INTERFACE SYSTEM 12/11/2006 4:59 PM PRESSURE VESSEL INSPECTOR Catalina Jaramillo PA-C CHEMISTRY ORDERABLES Edite d Performing Organization Address [facility] Phone Number INTERFACE SYSTEM Refer to clinic/hospital department * (ABNORMAL) BASIC METABOLIC PANEL (12/11/2006 4:59 PM PRESSURE VESSEL INSPECTOR) GLUCOSE 122(H) 65 - 99 mg/dL INTERFACE [...] and non- Americans is available on the [facility] Intranet at: [email or web address] Select: Lab Policies and Procedures Select: Reference Ranges - GFR 12/11/2006 4:59 PM PRESSURE VESSEL INSPECTOR Catalina Jaramillo PA-C CHEMISTRY ORDERABLES Edite d Performing Organization Address [facility]/ZIP Co de Phone Number INTERFACE SYSTEM Refer to clinic/hospital department * (ABNORMAL) POC RT, BLOOD GASES (12/11/2006 3:23 PM PRESSURE VESSEL INSPECTOR) PH ARTERIAL 7.42 7.35 - 7.45 INTERF [...] 99 mg/dL INTERFACE SYSTEM 12/11/2006 3:23 PM PRESSURE VESSEL INSPECTOR us Augusto Mckeon MD CHEMISTRY ORDERABLES Edit ed INTERFACE SYSTEM Refer to clinic/hospital department * (ABNORMAL) POC RT, BLOOD GASES (12/11/2006 1:11 PM PRESSURE VESSEL INSPECTOR) PH ARTERIAL 7.41 7.35 - 7.45 INTERFACE [...] 99 mg/dL INTERFACE SYSTEM 12/11/2006 1:11 PM PRESSURE VESSEL INSPECTOR us Augusto Mckeon MD CHEMISTRY ORDERABLES Edit ed Performing Organization Address [facility] Phone Number INTERFACE SYSTEM Refer to clinic/hospital department * URINALYSIS (12/11/2006 1:50 AM PRESSURE VESSEL INSPECTOR) COLOR UA Yellow INTERFACE SYSTEM CLARITY UA [...] Negative Negative INTERFACE SYSTEM 12/11/2006 1:50 AM PRESSURE VESSEL INSPECTOR us Akash Lopez Jr., MD URINE ORDERABLES Edited Performing Organization Address [facility] Phone Number INTERFACE SYSTEM Refer to clinic/hospital department * (ABNORMAL) COMPREHENSIVE METABOLIC PANEL (12/10/2006 8:00 PM PRESSURE VESSEL INSPECTOR) GLUCOSE 99 65 - 99 mg/dL INTERFACE [...] and non- Americans is available on the [facility] Intranet at: [email or web address] Select: Lab Policies and Procedures Select: Reference Ranges - GFR 12/10/2006 8:00 PM PRESSURE VESSEL INSPECTOR us Akash Lopez Jr., MD CHEMISTRY ORDERABLES Ed ited Performing Organization Address [place]/[facility] Co de Phone Number INTERFACE SYSTEM Refer to clinic/hospital department * POC ACTIVATED CLOTTING TIME (12/10/2006 7:56 PM PRESSURE VESSEL INSPECTOR) ACT POC 119 Seconds INTERFACE SYSTEM Comment: Note sheath pull range change effective 05/17/2006. ACT value for sheath pull at [facility] has been established to be < or = to 1 40. (See also Nursing Procedures for sheath pull in related nursing areas) 12/10/2006 7:56 PM PRESSURE VESSEL INSPECTOR us Augusto Mckeon MD POINT OF CARE TESTING Shravan stan Performing Organization Address [facility] de Phone Number INTERFACE SYSTEM Refer to clinic/hospital department documented in this encounter Visit Diagnoses Diagnosis Coronary atherosclerosis of circle coronary artery- Primary documented in this encounter Care Teams Rn Mds Coordinator Relationship Specialty Start Date End Date Danish Ramírez MD [address] [place] [address] PCP - General 12/10/06 documented as of this encounter
--- OUTSIDE RECORDS SUMMARY | 2025-06-30 09:26 | XMS_ITS | Encounter Summary ---
Author Organization [facility] Address 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
--- OUTSIDE RECORDS SUMMARY | 2025-06-30 09:26 | XMS_ITS | Encounter Summary ---
Author Organization [facility] Address 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
--- OUTSIDE RECORDS SUMMARY | 2025-06-30 09:26 | XMS_ITS | Encounter Summary ---
Author Organization [facility] Address [address] [place] [address] Care Team Providers Care Cutlet Maker Pork Name Role Phone Danish Ramírez MD Primary Care Provider [phone] Encounter Details Date Type Department Care Team (Late st Contact Info) Description 12/10/2006 Outpatient Historical [facility] Cardiovas and Thor Surg at [facility] Heart [address] [address] Akash Lopez Jr., MD NO ADDRESS ON FILE Social History Tobacco Use Types Packs/Day Years Used Date Smoking Tobacco: Never Assessed Sex and Gender Information Value Date Recorded Sex Assigned at Not on file Legal Sex Male 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
--- OUTSIDE RECORDS SUMMARY | 2025-06-30 09:26 | XMS_ITS | Clinical Summary ---
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
--- OUTSIDE RECORDS SUMMARY | 2025-06-30 09:26 | XMS_ITS | Encounter Summary ---
Author Organization [facility] [facility] Address [address] [place] [address] Care Team Providers Care Application Security Developer Name Role Phone Danish Ramírez MD Primary Care Provider [phone] Encounter Details Date Type Department Care Team (Late st Contact Info) Description 12/11/2006 Outpatient Historical [facility] Cardiology-[facility]) [address] 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
--- OUTSIDE RECORDS SUMMARY | 2025-06-30 09:26 | XMS_ITS | Clinical Summary ---
Author Organization [facility] [address] Address [address] [place] [address] Care Team Providers Care Mortgage Or Loan Underwriter Name Role Phone Sandy Bragg MD Unavailable Walker Breen MD Primary Care Provider Medications rivaroxaban (XARELTO) 20 mg tablet Take 1 tablet (20 mg total) by mouth daily Active aspirin 81 mg enteric coated tablet Take 1 tablet (81 mg total) by mouth daily Active levothyroxine (SYNTHROID) 200 mcg tablet Take 1 tablet (200 mcg total) by mouth daily 08/31/2021 Active metoprolol tartrate (LOPRESSOR) 50 mg immediate [...] 12/21/2024 Active clopidogreL (PLAVIX) 75 mg tablet TAKE 1 TABLET BY MOUTH EVERY DAY 30 tablet 03/30/2025 Active rosuvastatin (CRESTOR) 20 mg tabletIndications :Coronary artery disease involving [place] coronary artery of [place] heart without angina pectoris TAKE 1 TABLET BY MOUTH DAILY 90 tablet 2 03/22/2025 Active potassium chloride ER 10 mEq CR tablet TAKE 1 TABLET BY MOUTH TWICE A DAY 180 tablet 3 03/25/2025 Active Active Problems Problem Noted Date Diagnosed [...] (12/11/2018): Added automatically from request for surgery [id number] PAC (premature atrial contraction) 08/18/2018 03/19/2022 Assessment [...] as well to help him lose weight. Surgical History Surgery Date Site/Laterality Comments CORONARY ANGIOPLASTY CORONARY ARTERY BYPASS GRAFT 11/25/2006 - 11/24/2007 ESOPHAGOGASTRODUODENOSCOPY CARDIAC CATHETERIZATION CARDIAC CATHETERIZATION 12/29/2024 N/A Procedure: LEFT HEART CATHETERIZATION WITH CORONARY ANGIOGRAPHY GRAFT AND WITH OR WITHOUT LEFT VENTRICULOGRAM [id number]; Surgeon: Darshan Lam MD; Location: CARDIAC SUPERVISOR STERILE PROCESSING; Service: Cardiovascular; Laterality: N/A; Medical devices from this surgery are in the Medical Devices section. 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 AND PAROLE OFFICER Gender Identity Not on file Sexual Orientation Not on file Obstetrics History Last Filed Vital Signs Vital Sign Reading Time Taken Comments Blood Pressure 138/68 01/18/2025 1:11 PM PROBATION AND PAROLE OFFICER Pulse 57 01/18/2025 1:11 PM PROBATION AND PAROLE OFFICER Temperature 36.7 C (98 F) 12/30/2024 8:17 AM PROBATION AND PAROLE OFFICER Respiratory Rate 16 12/30/2024 8:17 AM PROBATION AND PAROLE OFFICER Oxygen Saturation 99% 01/18/2025 1:11 PM PROBATION AND PAROLE OFFICER Inhaled Oxygen Concentration - - Weight 119.3 kg (263 lb) 01/18/2025 1:11 PM PROBATION AND PAROLE OFFICER Height 170.2 cm (5' 7) 01/18/2025 1:11 PM PROBATION AND PAROLE OFFICER Body Mass Index 41.19 01/18/2025 1:11 PM PROBATION AND PAROLE OFFICER Plan of Treatment Health Maintenance Due Date Last Done Comments Colon Cancer Screening-Colonoscopy 1950 Depression Screening 1950 Hepatitis C Screening 1950 DTaP/Tdap/Td Vaccine (1 - Tdap) 1962 Hepatitis B Screening 1969 Pneumococcal vaccine 65+ (1 of 1 - PCV) 2001 Zoster Vaccine (1 of 2) 2001 Well Visit 65+ 2016 Influenza Vaccine (#1) 2025 Fall Risk Assessment 12/30/2025 12/30/2024, 09/11/2021, 05/02/2020 Abdominal Aortic Aneurysm (A AA) Screen Completed 01/18/2025, 2024, 11/09/2024, Additional history exists Medical Devices Implanted Type Area Telegraph Office Telephone Clerk Device Identifier Shelf Expiration Date Model / Serial / Lot Wsain Vascular [id number] Xience Alpine 3.25mm 23mm 145cm Rapid Exchange Radiopaque 1 - [id number] Implanted:Qty: 1 on 12/16/2018 by Darshan Lam MD at [facility] [employer] 03/09/2021 1 [id number] / / [id number] [employer] [id number] Angio-Seal Vip Bondek-Plus 6fr .035in 70cm Hemostatic Latex Free - [id number] Implanted:Qty: 1 on 12/16/2018 by Darshan Lam MD at [facility] [employer] 08/24/2019 [id number] / / [id number] [employer] Device Vascular Closure Femoral Artery Bioabsorbable Dual Method Vascade 6-7fr Collagen [id number] - [id number] Implanted:Qty: 1 on 12/29/2024 by Darshan Lam MD at [facility] [employer] 05/26/2026 [id number] / / [id number] Insurance MEDICARE MEDICARE [facility] [employer] [place] Member Subscriber Plan / Payer ( fective 2024-Present) Name:Augusto Alvarado Relation to Subscriber:Self Name:Augusto Alvarado Payer ID:[id number] Group ID:[id number] Type:COMMERCIAL Address: [address] [address] [place] [address] Advance Directives For more information, please contact: [phone] * Full Code (Latest Code Status on File) Date Activated Date Inactivated Comments 12/29/2024 10:49 AM 12/30/2024 7:06 PM * Full Code Date Activated Date Inactivated Comments 12/16/2018 2:21 PM 12/17/2018 10:04 PM Care Teams Mortgage Or Loan Underwriter Relationship Specialty Start Date End Date Walker Breen MD PCP - General Family Practice 03/06/21 Sandy Bragg MD Family Medicine 08/10/20
--- OUTSIDE RECORDS SUMMARY | 2025-06-30 09:26 | XMS_ITS | Encounter Summary ---
Author Organization [facility] Address 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
--- OUTSIDE RECORDS SUMMARY | 2025-06-30 09:26 | XMS_ITS | Encounter Summary ---
Author Organization [facility] Address 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
--- OUTSIDE RECORDS SUMMARY | 2025-06-30 09:26 | XMS_ITS | Encounter Summary ---
Author Organization [facility] Address [address] [place] [address] Care Team Providers Care It Operations Manager Name Role Phone Danish Ramírez MD Primary Care Provider [phone] Encounter Details Date Type Department Care Team (Late st Contact Info) Description 2006 Outpatient Historical [facility] (Adt Cardiology-[facility]) [address] 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
--- OUTSIDE RECORDS SUMMARY | 2025-06-30 09:27 | XMS_ITS | Encounter Summary ---
Author Organization [facility] Address [address] [place] [address] Care Team Providers Care Drying Oven Attendant Name Role Phone Danish Ramírez MD Primary Care Provider [phone] Encounter Details Date Type Department Care Team (Late st Contact Info) Description 12/11/2006 Outpatient Historical [facility] Cardiovas and Thor Surg at [facility] [address] [facility] [address] [place] [address] Sabina Ibrahim MD [address] [facility] [address] [place] [address] Social History Tobacco Use Types Packs/Day Years Used Date Smoking Tobacco: Never Assessed Sex and Gender Information Value Date Recorded Sex Assigned at Not on file 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
[2025-06-30 18:45] LABS: Thyroid Stimulating Hormone Reflex 0.079 uIU/mL (0.465-4.68)
[2025-06-30 19:16] LABS: Free T4 Free Thyroxine Reflex 1.74 ng/dL (0.78-2.19)
[2025-06-30 20:08] LABS: Total Triiodothyronine (T3) 0.89 NG/ML (0.82-1.58)
== END 2025-06-30 09:05 | disposition home or self-care (01) ==
LOC: ANHGOSHLAB 09:05
PROVIDERS: PCP Family Medicine; Visit Provider Family Medicine
DX: E03.9 Hypothyroidism, unspecified (principal)
CPT/HCPCS: 36415; 84439; 84443; 84480

== ENCOUNTER 2025-08-18 08:17 | Outpatient (CLI) | payer MEDICARE, OTHER, SELFPAY ==
--- OUTSIDE RECORDS SUMMARY | 2025-08-18 08:30 | XMS_ITS | Encounter Summary ---
Author Organization [facility] Address [address] [place] [address] Care Team Providers Care Storage Consultant Name Role Phone Danish Ramírez MD Primary Care Provider Encounter Details Date Type Department Care Team (Late st Contact Info) Description 12/11/2006 Outpatient Historical [facility] Cardiovas and Thor Surg at [facility] [address] [facility] [address] [place] [address] Sabina Ibrahim MD [address] [facility] [address] [place] [address] Social History Tobacco Use Types Packs/Day Years Used Date Smoking Tobacco: Never Assessed Sex and Gender Information Value Date Recorded Sex Assigned at Not on file Legal Sex Male 5:17 AM CLIENT SUPPORT ADMINISTRATOR Gender Identity Not on file Sexual Orientation Not on file documented as of this encounter Plan of Treatment Not on file documented as of this encounter Visit Diagnoses Not on filedocumented in this encounter Care Teams Storage Consultant Relationship Specialty Start Date End Date Danish Ramírez MD [address] [place] [address] PCP - General 12/10/06 documented as of this encounter
--- OUTSIDE RECORDS SUMMARY | 2025-08-18 08:30 | XMS_ITS | Clinical Summary ---
Author Organization [facility] [address] Address [address] [place] [address] Care Team Providers Care Criminal Psychologist Name Role Phone Sandy Bragg MD Unavailable [phone] Walker Breen MD Primary Care Provider Allergies [...] A DAY 180 tablet 3 12/21/2024 Active rosuvastatin (CRESTOR) 20 mg tabletIndications :Coronary artery disease involving [place]oshone coronary artery of [place]osh[place] heart without angina pectoris TAKE 1 TABLET [...] (12/11/2018): Added automatically from request for surgery [id number] PAC (premature atrial contraction) 08/18/2018 03/19/2022 Assessment [...] Encounters Date Type Department Care Team Description 07/19/2025 8:45 AM CDT Office Visit [facility] Cardiology [address] [place] [address] Darshan Lam MD Paroxysmal atrial fibrillation (HCC) (Primary Dx); Essential hypertension; Coronary artery disease involving pa[place]shoshone coronary artery of pa[place]shoshone heart without angina pectoris; Infrarenal abdominal aortic aneurysm (AAA) without rupture; Localized edema; Severe obesity (HCC) from Last 3 Months Surgical History Surgery Date Site/Laterality Comments CORONARY ANGIOPLASTY CORONARY ARTERY BYPASS GRAFT 11/25/2006 - 11/24/2007 ESOPHAGOGASTRODUODENOSCOPY CARDIAC CATHETERIZATION CARDIAC CATHETERIZATION 12/29/2024 N/A Procedure: LEFT HEART CATHETERIZATION WITH CORONARY ANGIOGRAPHY GRAFT AND WITH OR WITHOUT LEFT VENTRICULOGRAM [id number]; Surgeon: Darshan Lam MD; Location: CARDIAC ECONOMIC RESEARCH ASSISTANT; Service: Cardiovascular; Laterality: N/A; Medical devices from this surgery are in the Medical Devices section. 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 SUPERVISOR Gender Identity Not on file Sexual Orientation Not on file Obstetrics History Last Filed Vital Signs Vital Sign Reading Time Taken Comments Blood Pressure 120/80 07/19/2025 8:38 AM CDT Pulse 74 07/19/2025 8:38 AM CDT Temperature 36.7 C (98 F) 12/30/2024 8:17 AM BOAT OUTFITTING SUPERVISOR Respiratory Rate 16 12/30/2024 8:17 AM BOAT OUTFITTING SUPERVISOR Oxygen Saturation 97% 07/19/2025 8:38 AM CDT Inhaled Oxygen Concentration - - Weight 97.9 kg (215 lb 14.4 oz) 07/19/2025 8:38 AM CDT Height 170.2 cm (5' 7) 07/19/2025 8:38 AM CDT Body Mass Index 33.81 07/19/2025 8:38 AM CDT Plan of Treatment Health Maintenance Due Date Last Done Comments Colon Cancer Screening-Colonoscopy 1950 Depression Screening 1950 Hepatitis C Screening 1951 Hepatitis B Screening 1969 Pneumococcal vaccine 65+ (1 of 1 - PCV) 2001 Zoster Vaccine (1 of 2) 2001 Well Visit 65+ 2016 DTaP/Tdap/Td Vaccine (2 - Td or Tdap) 02/09/2023 02/09/2013 Influenza Vaccine (#1) 2025 Fall Risk Assessment 12/30/2025 12/30/2024, 09/11/2021, 05/02/2020 Abdominal Aortic Aneurysm (A AA) Screen Completed 07/19/2025, 01/18/2025, 2024, Additional history exists Medical Devices Implanted Type Area Dietary Aide Teacher Device Identifier Shelf Expiration Date Model / Serial / Lot [employer] [id number] Xiencthanh Alpine 3.25mm 23mm 145cm Rapid Exchange Radiopaque 1 - [id number] Implanted:Qty: 1 on 12/16/2018 by Darshan Lam MD at [facility] [employer] 03/09/2021 1 [id number] / / [id number] [employer] [id number] Angio-Seal Vip Bondek-Plus 6fr .035in 70cm Hemostatic Latex Free - [id number] Implanted:Qty: 1 on 12/16/2018 by Darshan Lam MD at [facility] [employer] 08/24/2019 [id number] / / [id number] [employer] Device Vascular Closure Femoral Artery Bioabsorbable Dual Method Vascade 6-7fr Collagen [id number] - [id number] Implanted:Qty: 1 on 12/29/2024 by Darshan Lam MD at [facility] [employer] 05/26/2026 [id number] / / [id number] Insurance MEDICARE MEDICARE [facility] MEDICARE GROUP [facility] Member Subscriber Plan / Payer (Ef fective 2024-Present) Name:Augusto Alvarado Relation to Subscriber:Self Name:Augusto Alvarado Payer ID:[id number] Group ID:[id number] Type:COMMERCIAL Address: [address] [address] [place] [address] Advance Directives For more information, please contact: [phone] * Full Code (Latest Code Status on File) Date Activated Date Inactivated Comments 12/29/2024 10:49 AM 12/30/2024 7:06 PM * Full Code Date Activated Date Inactivated Comments 12/16/2018 2:21 PM 12/17/2018 10:04 PM Care Teams Criminal Psychologist Relationship Specialty Start Date End Date Walker Breen MD PCP - General Family Practice 03/06/21 Sandy Bragg MD Family Medicine 08/10/20
--- OUTSIDE RECORDS SUMMARY | 2025-08-18 08:30 | XMS_ITS | Encounter Summary ---
Author Organization [facility] Address [address] [place] [address] Care Team Providers Care Band Splitter Name Role Phone Danish Ramírez MD Primary Care Provider [phone] Encounter Details Date Type Department Care Team (Latest Contact Info) Description 12/10/2006 Inpatient Historical HIS PATIENT IN A BED Akash Lopez Jr., MD NO ADDRESS ON FILE Augusto Mckeon MD [address] [address] Coronary Atherosclerosis of [place] Coronary Artery (Primary Dx) Social History Tobacco Use Types Packs/Day Years Used Date Smoking Tobacco: Never Assessed Sex and Gender Information Value Date Recorded Sex Assigned at Not on file Legal Sex Male 5:17 AM TOMATO PULPER OPERATOR Gender Identity Not on file Sexual Orientation Not on file documented as of this encounter Plan of Treatment Not on file documented as of this encounter Procedures Procedure Name Priority Date/Time Associated Diagnosis Comments POC GLUCOSE Routine 2006 8:51 AM TOMATO PULPER OPERATOR POC GLUCOSE Routine 12/13/2006 8:34 PM TOMATO PULPER OPERATOR POC GLUCOSE Routine 12/13/2006 4:32 PM TOMATO PULPER OPERATOR POC GLUCOSE Routine 12/13/2006 11:33 AM TOMATO PULPER OPERATOR POC GLUCOSE Routine 12/13/2006 7:06 AM TOMATO PULPER OPERATOR CBC WITH DIFFERENTIAL Routine 12/13/2006 6:27 AM TOMATO PULPER OPERATOR CBC WITH DIFFERENTIAL Routine 12/13/2006 6:27 AM TOMATO PULPER OPERATOR MAGNESIUM LEVEL Routine 12/13/2006 5:34 AM TOMATO PULPER OPERATOR BASIC METABOLIC PANEL Routine 12/13/2006 5:34 AM TOMATO PULPER OPERATOR POC GLUCOSE Routine 12/12/2006 9:50 PM TOMATO PULPER OPERATOR POC GLUCOSE Routine 12/12/2006 5:29 PM TOMATO PULPER OPERATOR CK TOTAL, RELATIVE INDEX Routine 12/12/2006 5:21 PM TOMATO PULPER OPERATOR CKMB W/REFLEX CK Routine 12/12/2006 5:21 PM TOMATO PULPER OPERATOR POC GLUCOSE Routine 12/12/2006 12:05 PM TOMATO PULPER OPERATOR CVR ONLY, CKMB/CK Routine 12/12/2006 10: 15 AM TOMATO PULPER OPERATOR POC GLUCOSE Routine 12/12/2006 6:59 AM TOMATO PULPER OPERATOR POC, BLOOD GASES Routine 12/12/2006 4:45 AM TOMATO PULPER OPERATOR PT AND APTT Routine 12/12/2006 4:00 AM TOMATO PULPER OPERATOR CBC WITH DIFFERENTIAL Routine 12/12/2006 4:00 AM TOMATO PULPER OPERATOR CBC WITH DIFFERENTIAL Routine 12/12/2006 4:00 AM TOMATO PULPER OPERATOR COMPREHENSIVE METABOLIC PANEL Routine 12/12/2006 4:00 AM TOMATO PULPER OPERATOR POTASSIUM LEVEL Routine 12/12/2006 1:08 AM TOMATO PULPER OPERATOR MAGNESIUM LEVEL Routine 12/12/2006 1:08 AM TOMATO PULPER OPERATOR POC GLUCOSE Routine 12/12/2006 1:02 AM TOMATO PULPER OPERATOR CVR ONLY, CKMB/CK Routine 12/12/2006 1:0 0 AM TOMATO PULPER OPERATOR POTASSIUM LEVEL Routine 12/11/2006 9:25 PM TOMATO PULPER OPERATOR MAGNESIUM LEVEL Routine 12/11/2006 9:25 PM TOMATO PULPER OPERATOR POC GLUCOSE Routine 12/11/2006 7:01 PM TOMATO PULPER OPERATOR POC, BLOOD GASES Routine 12/11/2006 5:21 PM TOMATO PULPER OPERATOR CVR ONLY, CKMB/CK Routine 12/11/2006 4:5 9 PM TOMATO PULPER OPERATOR PT AND APTT Routine 12/11/2006 4:59 PM TOMATO PULPER OPERATOR CBC WITH DIFFERENTIAL Routine 12/11/2006 4:59 PM TOMATO PULPER OPERATOR CBC WITH DIFFERENTIAL Routine 12/11/2006 4:59 PM TOMATO PULPER OPERATOR MAGNESIUM LEVEL Routine 12/11/2006 4:59 PM TOMATO PULPER OPERATOR BASIC METABOLIC PANEL Routine 12/11/2006 4:59 PM TOMATO PULPER OPERATOR POC, BLOOD GASES Routine 12/11/2006 3:23 PM TOMATO PULPER OPERATOR POC, BLOOD GASES Routine 12/11/2006 1:11 PM TOMATO PULPER OPERATOR URINALYSIS W/REFLEX MICROSCOPIC Routine 12/11/2006 1:50 AM TOMATO PULPER OPERATOR COMPREHENSIVE METABOLIC PANEL Routine 12/10/2006 8:00 PM TOMATO PULPER OPERATOR POC ACTIVATED CLOTTING TIME Routine 12/10/2006 7:56 PM TOMATO PULPER OPERATOR documented in this encounter Results * (ABNORMAL) POC GLUCOSE (2006 8:51 AM TOMATO PULPER OPERATOR) GLUCOSE POC 137(H) 65 - 99 mg/dL INTERFACE SYSTEM 2006 8:51 AM TOMATO PULPER OPERATOR us Augusto Mckeon MD POINT OF CARE TESTING Shravansaeed pierce INTERFACE SYSTEM Refer to clinic/hospital department * POC GLUCOSE (12/13/2006 8:34 PM TOMATO PULPER OPERATOR) GLUCOSE POC 77 65 - 99 mg/dL INTERFACE SYSTEM 12/13/2006 8:34 PM TOMATO PULPER OPERATOR Augusto Mckeon MD POINT OF CARE TESTING Shravan stan Performing Organization Address [facility] Phone Number INTERFACE SYSTEM Refer to clinic/hospital department * (ABNORMAL) POC GLUCOSE (12/13/2006 4:32 PM TOMATO PULPER OPERATOR) COMMENT, GLU POC Notified RN INTERFACE SYSTEM GLUCOSE POC 131(H) 65 - 99 mg/dL INTERFACE SYSTEM 12/13/2006 4:32 PM TOMATO PULPER OPERATOR Augusto Mckeon MD POINT OF CARE TESTING Shravan stan Performing Organization Address [facility] Phone Number INTERFACE SYSTEM Refer to clinic/hospital department * (ABNORMAL) POC GLUCOSE (12/13/2006 11:33 AM TOMATO PULPER OPERATOR) COMMENT, GLU POC Notified RN INTERFACE SYSTEM GLUCOSE POC 128(H) 65 - 99 mg/dL INTERFACE SYSTEM 12/13/2006 11:3 3 AM TOMATO PULPER OPERATOR Augusto Mckeon MD POINT OF CARE TESTING Shravan stan Performing Organization Address [facility] Phone Number INTERFACE SYSTEM Refer to clinic/hospital department * (ABNORMAL) POC GLUCOSE (12/13/2006 7:06 AM TOMATO PULPER OPERATOR) COMMENT, GLU POC Notified RN INTERFACE SYSTEM GLUCOSE POC 136(H) 65 - 99 mg/dL INTERFACE SYSTEM 12/13/2006 7:06 AM TOMATO PULPER OPERATOR Augusto Mckeon MD POINT OF CARE TESTING Shravan stan Performing Organization Address [facility] de Phone Number INTERFACE SYSTEM Refer to clinic/hospital department * (ABNORMAL) CBC WITH DIFFERENTIAL (12/13/2006 6:27 AM TOMATO PULPER OPERATOR) NEUTROPHILS 76(H) 45 - 70 % INTERFAC [...] 0.20 K/uL INTERFACE SYSTEM 12/13/2006 6:27 AM TOMATO PULPER OPERATOR Berenice JOHNSON HEMATOLOGY ORDERABLES Edited Performing Organization Address [facility] de Phone Number INTERFACE SYSTEM Refer to clinic/hospital department * (ABNORMAL) CBC WITH DIFFERENTIAL (12/13/2006 6:27 AM TOMATO PULPER OPERATOR) WBC 11.2(H) 4.0 - 9.8 K/uL INTERFACE [...] 12.4 fL INTERFACE SYSTEM 12/13/2006 6:27 AM TOMATO PULPER OPERATOR Berenice JOHNSON HEMATOLOGY ORDERABLES Edited Performing Organization Address [facility] Co de Phone Number INTERFACE SYSTEM Refer to clinic/hospital department * MAGNESIUM LEVEL (12/13/2006 5:34 AM TOMATO PULPER OPERATOR) MAGNESIUM 2.4 1.5 - 2.5 mg/dL INTERFACE SYSTEM 12/13/2006 5:34 AM TOMATO PULPER OPERATOR Akash Lopez Jr., MD CHEMISTRY ORDERABLES Ed ited Performing Organization Address [facility] Phone Number INTERFACE SYSTEM Refer to clinic/hospital department * (ABNORMAL) BASIC METABOLIC PANEL (12/13/2006 5:34 AM TOMATO PULPER OPERATOR) GLUCOSE 109(H) 65 - 99 mg/dL INTERFACE [...] and non- Americans is available on the [facility] Intranet at: [email or web address] Select: Lab Policies and Procedures Select: Reference Ranges - GFR CALCIUM 8.3(L) 8.4 - 10.2 mg/dL INTERFACE SYSTEM Comment:Verified by repeat a nalysis. 12/13/2006 5:34 AM TOMATO PULPER OPERATOR us Akash Lopez Jr., MD CHEMISTRY ORDERABLES Ed ited Performing Organization Address [facility] Phone Number INTERFACE SYSTEM Refer to clinic/hospital department * (ABNORMAL) POC GLUCOSE (12/12/2006 9:50 PM TOMATO PULPER OPERATOR) GLUCOSE POC 126(H) 65 - 99 mg/dL INTERFACE SYSTEM 12/12/2006 9:50 PM TOMATO PULPER OPERATOR Augusto Mckeon MD POINT OF CARE TESTING Shravan stan Performing Organization Address [facility] Phone Number INTERFACE SYSTEM Refer to clinic/hospital department * (ABNORMAL) POC GLUCOSE (12/12/2006 5:29 PM TOMATO PULPER OPERATOR) GLUCOSE POC 124(H) 65 - 99 mg/dL INTERFACE SYSTEM 12/12/2006 5:29 PM TOMATO PULPER OPERATOR Augusto Mckeon MD POINT OF CARE TESTING Shravan stan Performing Organization Address [facility] Phone Number INTERFACE SYSTEM Refer to clinic/hospital department * (ABNORMAL) CK TOTAL, RELATIVE INDEX (12/12/2006 5:21 PM TOMATO PULPER OPERATOR) CK 1,354(H) 10 - 170 U/L INTERFACE SYSTEM CARDIAC RELATIVE INDEX 1.2 <=4.0 INTERFACE SYSTEM 12/12/2006 5:21 PM TOMATO PULPER OPERATOR Narrative INTERFACE SYSTEM - 12/12/2006 7:52 PM TOMATO PULPER OPERATOR Ordered by an unspecified provider. us Historical Provider CHEMISTRY ORDERABLES Edited Performing Organization Address [facility] Phone Number INTERFACE SYSTEM Refer to clinic/hospital department * (ABNORMAL) CKMB W/REFLEX CK (12/12/2006 5:21 PM TOMATO PULPER OPERATOR) CKMB 15.5(AA) <=6.7 ng/mL INTERFACE SYSTEM Comment:Persistent abnormal result CKMB INTERP See Below INTERFAC E SYSTEM Comment:Elevated CKMB,Consis tent with Myocardial Injury. 12/12/2006 5:21 PM TOMATO PULPER OPERATOR Narrative INTERFACE SYSTEM - 12/12/2006 7:30 PM TOMATO PULPER OPERATOR Ordered by an unspecified provider. Historical Provider CHEMISTRY ORDERABLES Edited Performing Organization Address [facility] Phone Number INTERFACE SYSTEM Refer to clinic/hospital department * (ABNORMAL) POC GLUCOSE (12/12/2006 12:05 PM TOMATO PULPER OPERATOR) GLUCOSE POC 128(H) 65 - 99 mg/dL INTERFACE SYSTEM 12/12/2006 12:0 5 PM TOMATO PULPER OPERATOR Augusto Mckeon MD POINT OF CARE TESTING Shravan stan Performing Organization Address [facility] Phone Number INTERFACE SYSTEM Refer to clinic/hospital department * (ABNORMAL) CVR ONLY, CKMB/CK (12/12/2006 10:15 AM TOMATO PULPER OPERATOR) CKMB 14.3(AA) <=6.7 ng/mL INTERFACE SYSTEM Comment:Persistent abnormal result CKMB INTERP See Below INTERFAC E SYSTEM Comment:Elevated CKMB,Consis tent with Myocardial Injury CK 1,002(H) 10 - 170 U/L INTERFACE SYSTEM CARDIAC RELATIVE INDEX 1.4 <=4.0 INTERFACE SYSTEM 12/12/2006 10:1 5 AM TOMATO PULPER OPERATOR Catalina Jaramillo PA-C CHEMISTRY ORDERABLES Edite d Performing Organization Address [facility] Phone Number INTERFACE SYSTEM Refer to clinic/hospital department * (ABNORMAL) POC GLUCOSE (12/12/2006 6:59 AM TOMATO PULPER OPERATOR) GLUCOSE POC 148(H) 65 - 99 mg/dL INTERFACE SYSTEM 12/12/2006 6:59 AM TOMATO PULPER OPERATOR Augusto Mckeon MD POINT OF CARE TESTING Shravan stan Performing Organization Address [facility] Phone Number INTERFACE SYSTEM Refer to clinic/hospital department * (ABNORMAL) POC RT, BLOOD GASES (12/12/2006 4:45 AM TOMATO PULPER OPERATOR) PH ARTERIAL 7.36 7.35 - 7.45 INTERFACE [...] TO RN INTERFACE SYSTEM 12/12/2006 4:45 AM TOMATO PULPER OPERATOR Augusto Mckeon MD CHEMISTRY ORDERABLES Edit ed Performing Organization Address [facility] de Phone Number INTERFACE SYSTEM Refer to clinic/hospital department * (ABNORMAL) CBC WITH DIFFERENTIAL (12/12/2006 4:00 AM TOMATO PULPER OPERATOR) NEUTROPHILS 85(H) 45 - 70 % INTERFAC [...] 0.20 K/uL INTERFACE SYSTEM 12/12/2006 4:00 AM TOMATO PULPER OPERATOR Catalina Jaramillo PA-C HEMATOLOGY ORDERABLES Edit ed Performing Organization Address [facility] de Phone Number INTERFACE SYSTEM Refer to clinic/hospital department * (ABNORMAL) CBC WITH DIFFERENTIAL (12/12/2006 4:00 AM TOMATO PULPER OPERATOR) WBC 13.8(H) 4.0 - 9.8 K/uL INTERFACE [...] 12.4 fL INTERFACE SYSTEM 12/12/2006 4:00 AM TOMATO PULPER OPERATOR Catalina Jaramillo PA-C HEMATOLOGY ORDERABLES Edit ed INTERFACE SYSTEM Refer to clinic/hospital department * (ABNORMAL) PT AND APTT (12/12/2006 4:00 AM TOMATO PULPER OPERATOR) PROTIME 15.1 12.7 - 15.1 Seconds INTERFACE SYSTEM INR 1.2(H) 0.9 - 1.1 INTERFACE SYSTEM Comment: INR Therapeutic Range: Adult: 2.0 - 3.0 for pulmonary embolism or prophylaxis against venous thrombosis or systemic embolization. 2.0 - 3.0 for patients with tissue heart valves. 2.5 - 3.5 for patients with mechanical heart valves or post SC. Pediatric (12 years and under): 1.5 - [...] range for unfractionated heparin 12/12/2006 4:00 AM TOMATO PULPER OPERATOR Catalina Jaramillo PA-C HEMATOLOGY ORDERABLES Edit ed INTERFACE SYSTEM Refer to clinic/hospital department * (ABNORMAL) COMPREHENSIVE METABOLIC PANEL (12/12/2006 4:00 AM TOMATO PULPER OPERATOR) GLUCOSE 142(H) 65 - 99 mg/dL INTERFACE [...] and non- Americans is available on the [facility] Intranet at: [email or web address] Select: Lab Policies and Procedures Select: Reference Ranges - GFR 12/12/2006 4:00 AM TOMATO PULPER OPERATOR Catalina Jaramillo PA-C CHEMISTRY ORDERABLES Edite d INTERFACE SYSTEM Refer to clinic/hospital department * MAGNESIUM LEVEL (12/12/2006 1:08 AM TOMATO PULPER OPERATOR) MAGNESIUM 2.2 1.5 - 2.5 mg/dL INTERFACE SYSTEM 12/12/2006 1:08 AM TOMATO PULPER OPERATOR Akash Lopez Jr., MD CHEMISTRY ORDERABLES Ed ited Performing Organization Address [facility] Phone Number INTERFACE SYSTEM Refer to clinic/hospital department * POTASSIUM LEVEL (12/12/2006 1:08 AM TOMATO PULPER OPERATOR) POTASSIUM 4.5 3.5 - 4.9 mmol/L INTERFACE SYSTEM 12/12/2006 1:08 AM TOMATO PULPER OPERATOR us Akash Lopez Jr., MD CHEMISTRY ORDERABLES Ed ited Performing Organization Address [facility] Phone Number INTERFACE SYSTEM Refer to clinic/hospital department * (ABNORMAL) POC GLUCOSE (12/12/2006 1:02 AM TOMATO PULPER OPERATOR) GLUCOSE POC 138(H) 65 - 99 mg/dL INTERFACE SYSTEM 12/12/2006 1:02 AM TOMATO PULPER OPERATOR us Augusto Mckeon MD POINT OF CARE TESTING Shravan stan Performing Organization Address [facility] Phone Number INTERFACE SYSTEM Refer to clinic/hospital department * (ABNORMAL) CVR ONLY, CKMB/CK (12/12/2006 1:00 AM TOMATO PULPER OPERATOR) CKMB 10.0(AA) <=6.7 ng/mL INTERFACE SYSTEM Comment:Results called to Eugene sanchez at 12/12/2006 1:53 AM and read back verified. CKMB INTERP See Below INTERFAC E SYSTEM Comment:Elevated CKMB,Consis tent with Myocardial Injury. CK 454(H) 10 - 170 U/L INTERFACE SYSTEM CARDIAC RELATIVE INDEX 2.2 <=4.0 INTERFACE SYSTEM 12/12/2006 1:00 AM TOMATO PULPER OPERATOR us Catalina Jaramillo PA-C CHEMISTRY ORDERABLES Edite d Performing Organization Address [facility] Phone Number INTERFACE SYSTEM Refer to clinic/hospital department * MAGNESIUM LEVEL (12/11/2006 9:25 PM TOMATO PULPER OPERATOR) MAGNESIUM 1.7 1.5 - 2.5 mg/dL INTERFACE SYSTEM 12/11/2006 9:25 PM TOMATO PULPER OPERATOR us Akash Lopez Jr., MD CHEMISTRY ORDERABLES Ed ited Performing Organization Address [facility] de Phone Number INTERFACE SYSTEM Refer to clinic/hospital department * POTASSIUM LEVEL (12/11/2006 9:25 PM TOMATO PULPER OPERATOR) POTASSIUM 3.9 3.5 - 4.9 mmol/L INTERFACE SYSTEM 12/11/2006 9:2 5 PM TOMATO PULPER OPERATOR us Akash Lopez Jr., MD CHEMISTRY ORDERABLES Ed ited Performing Organization Address [facility] Phone Number INTERFACE SYSTEM Refer to clinic/hospital department * (ABNORMAL) POC GLUCOSE (12/11/2006 7:01 PM TOMATO PULPER OPERATOR) GLUCOSE POC 141(H) 65 - 99 mg/dL INTERFACE SYSTEM 12/11/2006 7:01 PM TOMATO PULPER OPERATOR us Augusto Mckeon MD POINT OF CARE TESTING Shravan stan Performing Organization Address [facility] Phone Number INTERFACE SYSTEM Refer to clinic/hospital department * (ABNORMAL) POC RT, BLOOD GASES (12/11/2006 5:21 PM TOMATO PULPER OPERATOR) PH ARTERIAL 7.39 7.35 - 7.45 INTERFACE [...] RN NOTIFIED INTERFACE SYSTEM 12/11/2006 5:21 PM TOMATO PULPER OPERATOR Augusto Mckeon MD CHEMISTRY ORDERABLES Edit ed Performing Organization Address [facility] Phone Number INTERFACE SYSTEM Refer to clinic/hospital department * CVR ONLY, CKMB/CK (12/11/2006 4:59 PM TOMATO PULPER OPERATOR) CKMB 3.0 <=6.7 ng/mL INTERFACE SYSTEM CKMB INTERP Negative INTERFAC E SYSTEM CK 113 10 - 170 U/L INTERFACE SYSTEM CARDIAC RELATIVE INDEX N/A <=4.0 INTERFACE SYSTEM 12/11/2006 4:59 PM TOMATO PULPER OPERATOR Catalina Jaramillo PA-C CHEMISTRY ORDERABLES Edite d Performing Organization Address [facility] Phone Number INTERFACE SYSTEM Refer to clinic/hospital department * (ABNORMAL) CBC WITH DIFFERENTIAL (12/11/2006 4:59 PM TOMATO PULPER OPERATOR) NEUTROPHILS 76(H) 45 - 70 % INTERFAC [...] 0.20 K/uL INTERFACE SYSTEM 12/11/2006 4:59 PM TOMATO PULPER OPERATOR Result [facility] Catalina Jaramillo PA-C HEMATOLOGY ORDERABLES Edit ed Performing Organization Address [facility] Phone Number INTERFACE SYSTEM Refer to clinic/hospital department * (ABNORMAL) CBC WITH DIFFERENTIAL (12/11/2006 4:59 PM TOMATO PULPER OPERATOR) WBC 23.3(H) 4.0 - 9.8 K/uL INTERFACE [...] 12.4 fL INTERFACE SYSTEM 12/11/2006 4:59 PM TOMATO PULPER OPERATOR us Catalina Jaramillo PA-C HEMATOLOGY ORDERABLES Edit ed INTERFACE SYSTEM Refer to clinic/hospital department * (ABNORMAL) PT AND APTT (12/11/2006 4:59 PM TOMATO PULPER OPERATOR) PROTIME 15.1 12.7 - 15.1 Seconds INTERFACE SYSTEM INR 1.2(H) 0.9 - 1.1 INTERFACE SYSTEM Comment: INR Therapeutic Range: Adult: 2.0 - 3.0 for pulmonary embolism or prophylaxis against venous thrombosis or systemic embolization. 2.0 - 3.0 for patients with tissue heart valves. 2.5 - 3.5 for patients with mechanical heart valves or post SC. Pediatric (12 years and under): 1.5 - [...] range for unfractionated heparin 12/11/2006 4:59 PM TOMATO PULPER OPERATOR Catalina Jaramillo PA-C HEMATOLOGY ORDERABLES Edit ed Performing Organization Address [facility] Phone Number INTERFACE SYSTEM Refer to clinic/hospital department * MAGNESIUM LEVEL (12/11/2006 4:59 PM TOMATO PULPER OPERATOR) MAGNESIUM 1.9 1.5 - 2.5 mg/dL INTERFACE SYSTEM 12/11/2006 4:59 PM TOMATO PULPER OPERATOR Catalina Jaramillo PA-C CHEMISTRY ORDERABLES Edite d Performing Organization Address [facility] Phone Number INTERFACE SYSTEM Refer to clinic/hospital department * (ABNORMAL) BASIC METABOLIC PANEL (12/11/2006 4:59 PM TOMATO PULPER OPERATOR) GLUCOSE 122(H) 65 - 99 mg/dL INTERFACE [...] and non- Americans is available on the [facility] Intranet at: [email or web address] Select: Lab Policies and Procedures Select: Reference Ranges - GFR 12/11/2006 4:59 PM TOMATO PULPER OPERATOR Catalina Jaramillo PA-C CHEMISTRY ORDERABLES Edite d Performing Organization Address [facility]/ZIP Co de Phone Number INTERFACE SYSTEM Refer to clinic/hospital department * (ABNORMAL) POC RT, BLOOD GASES (12/11/2006 3:23 PM TOMATO PULPER OPERATOR) PH ARTERIAL 7.42 7.35 - 7.45 INTERF [...] 99 mg/dL INTERFACE SYSTEM 12/11/2006 3:23 PM TOMATO PULPER OPERATOR us Augusto Mckeon MD CHEMISTRY ORDERABLES Edit ed INTERFACE SYSTEM Refer to clinic/hospital department * (ABNORMAL) POC RT, BLOOD GASES (12/11/2006 1:11 PM TOMATO PULPER OPERATOR) PH ARTERIAL 7.41 7.35 - 7.45 INTERFACE [...] 99 mg/dL INTERFACE SYSTEM 12/11/2006 1:11 PM TOMATO PULPER OPERATOR us Augusto Mckeon MD CHEMISTRY ORDERABLES Edit ed Performing Organization Address [facility] Phone Number INTERFACE SYSTEM Refer to clinic/hospital department * URINALYSIS (12/11/2006 1:50 AM TOMATO PULPER OPERATOR) COLOR UA Yellow INTERFACE SYSTEM CLARITY UA [...] Negative Negative INTERFACE SYSTEM 12/11/2006 1:50 AM TOMATO PULPER OPERATOR us Akash Lopez Jr., MD URINE ORDERABLES Edited Performing Organization Address [facility] Phone Number INTERFACE SYSTEM Refer to clinic/hospital department * (ABNORMAL) COMPREHENSIVE METABOLIC PANEL (12/10/2006 8:00 PM TOMATO PULPER OPERATOR) GLUCOSE 99 65 - 99 mg/dL INTERFACE [...] and non- Americans is available on the [facility] Intranet at: [email or web address] Select: Lab Policies and Procedures Select: Reference Ranges - GFR 12/10/2006 8:00 PM TOMATO PULPER OPERATOR us Akash Lopez Jr., MD CHEMISTRY ORDERABLES Ed ited Performing Organization Address [facility] de Phone Number INTERFACE SYSTEM Refer to clinic/hospital department * POC ACTIVATED CLOTTING TIME (12/10/2006 7:56 PM TOMATO PULPER OPERATOR) ACT POC 119 Seconds INTERFACE SYSTEM Comment: Note sheath pull range change effective 05/17/2006. ACT value for sheath pull at [facility] has been established to be < or = to 1 40. (See also Nursing Procedures for sheath pull in related nursing areas) 12/10/2006 7:56 PM TOMATO PULPER OPERATOR us Augusto Mckeon MD POINT OF CARE TESTING Shravan stan Performing Organization Address [facility] de Phone Number INTERFACE SYSTEM Refer to clinic/hospital department documented in this encounter Visit Diagnoses Diagnosis Coronary atherosclerosis of [place] coronary artery- Primary documented in this encounter Care Teams Band Splitter Relationship Specialty Start Date End Date Danish Ramírez MD [address] [place] [address] PCP - General 12/10/06 documented as of this encounter
--- OUTSIDE RECORDS SUMMARY | 2025-08-18 08:30 | XMS_ITS | Encounter Summary ---
Author Organization [facility] Address 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
--- OUTSIDE RECORDS SUMMARY | 2025-08-18 08:30 | XMS_ITS | Clinical Summary ---
Author Organization [facility] Address [address] [facility] Attn: Epic Prelude ADT CARLOS MCNAIR [address] Care Team Providers Care Two Needle Machine Operator Name Role Phone Danish Ramírez MD Primary Care Provider [phone] Social History Tobacco Use Types Packs/Day Years Used Date Smoking Tobacco: Never Assessed Sex and Gender Information Value Date Recorded Sex Assigned at Not on file Legal Sex Male 5:17 AM ASSOCIATE PROFESSOR Gender Identity Not on file Sexual [...] - 1-dose 75+ series) 2026 Care Teams Two Needle Machine Operator Relationship Specialty Start Date End Date Danish Ramírez MD [address] [place] [address] PCP - General 12/10/06
--- OUTSIDE RECORDS SUMMARY | 2025-08-18 08:30 | XMS_ITS | Encounter Summary ---
Author Organization [facility] Address [address] [place] [address] Care Team Providers Care Deposit Clerk Name Role Phone Danish Ramírez MD Primary Care Provider [phone] Encounter Details Date Type Department Care Team (Late st Contact Info) Description 01/15/2007 Outpatient Historical [facility] Cardiovas and Thor Surg at [facility] Heart [address] [address] Akash Lopez Jr., MD NO ADDRESS ON FILE Social History Tobacco Use Types Packs/Day Years Used Date Smoking Tobacco: Never Assessed Sex and Gender Information Value Date Recorded Sex Assigned at Not on file Legal Sex Male 5:17 AM RADIOSONDE OPERATOR Gender Identity Not on file Sexual Orientation Not on file documented as of this encounter Plan of Treatment Not on file documented as of this encounter Visit Diagnoses Not on filedocumented in this encounter Care Teams Deposit Clerk Relationship Specialty Start Date End Date Danish Ramírez MD [address] [place] [address] PCP - General 12/10/06 documented as of this encounter
--- OUTSIDE RECORDS SUMMARY | 2025-08-18 08:30 | XMS_ITS | Encounter Summary ---
Author Organization [employer] Address [address] [place] [address] Care Team Providers Care Select Banker Name Role Phone Danish Ramírez MD Primary Care Provider [phone] Encounter Details Date Type Department Care Team (Late st Contact Info) Description 12/11/2006 Outpatient Historical [facility] [place] Support Serv. ([facility]) [address] [place] [address] Miki Maya MD [address] [facility] [address] [place] [address] Social History Tobacco Use Types Packs/Day Years Used Date Smoking Tobacco: Never Assessed Sex and Gender Information Value Date Recorded Sex Assigned at Not on file Legal Sex Male 5:17 AM EDUCATIONAL RESOURCE COORDINATOR Gender Identity Not on file Sexual Orientation Not on file documented as of this encounter Plan of Treatment Not on file documented as of this encounter Visit Diagnoses Not on filedocumented in this encounter Care Teams Select Banker Relationship Specialty Start Date End Date Danish Ramírez MD [address] [place] [address] PCP - General 12/10/06 documented as of this encounter
--- OUTSIDE RECORDS SUMMARY | 2025-08-18 08:30 | XMS_ITS | Encounter Summary ---
Author Organization [facility] Address [address] [place] [address] Care Team Providers Care Radiochemical Technician Name Role Phone Danish Ramírez MD Primary Care Provider [phone] Encounter Details Date Type Department Care Team (Late st Contact Info) Description 12/11/2006 Outpatient Historical [facility] Cardiovas and Thor Surg at [facility] Heart [address] [address] Akash Lopez Jr., MD NO ADDRESS ON FILE Social History Tobacco Use Types Packs/Day Years Used Date Smoking Tobacco: Never Assessed Sex and Gender Information Value Date Recorded Sex Assigned at Not on file 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
--- OUTSIDE RECORDS SUMMARY | 2025-08-18 08:30 | XMS_ITS | Encounter Summary ---
Author Organization [facility] Address [address] [place] [address] Care Team Providers Care Corrosion Control Specialist Name Role Phone Danish Ramírez MD Primary Care Provider [phone] Encounter Details Date Type Department Care Team (Late st Contact Info) Description 2006 Outpatient Historical [facility] [place] [place] Support Serv. ([facility] Cardiology[facility]) [address] 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
--- OUTSIDE RECORDS SUMMARY | 2025-08-18 08:30 | XMS_ITS | Encounter Summary ---
Author Organization [facility] Address [address] [place] [address] Care Team Providers Care [employer] Infrastructure Consultant Name Role Phone Danish Ramírez MD Primary Care Provider [phone] Encounter Details Date Type Department Care Team (Late st Contact Info) Description 12/10/2006 Outpatient Historical [facility] Cardiovas and Thor Surg at [facility] Heart [address] [address] Akash Lopez Jr., MD NO ADDRESS ON FILE Social History Tobacco Use Types Packs/Day Years Used Date Smoking Tobacco: Never Assessed Sex and Gender Information Value Date Recorded Sex Assigned at Not on file 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
--- OUTSIDE RECORDS SUMMARY | 2025-08-18 08:30 | XMS_ITS | Encounter Summary ---
Author Organization [facility] Address 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
[2025-08-18 19:00] LABS: Alanine Aminotransferase 24 U/L (6-50); Albumin Level 4.0 g/dL (3.5-5.1); Alkaline Phosphatase 89 U/L (38-126); Anion Gap 6 mmol/L (4-12); Aspartate Amino Transferase 43 U/L (17-59); Bilirubin,Total 0.5 mg/dL (0.2-1.3); Blood Urea Nitrogen 28 mg/dL (9-20); Calcium 9.1 mg/dL (8.4-10.2); Carbon Dioxide 29 mmol/L (22-30); Chloride 99 mmol/L (98-107); Cholesterol 101 mg/dL (0-200); Estimated Glomerular Filt Rate 50; Glucose 72 mg/dL (65-110); HDL Direct 34 mg/dL; Potassium 4.7 mmol/L (3.4-5.0); Sodium 134 mmol/L (137-145); Total Protein 7.0 g/dL (6.3-8.2); Triglycerides 148 mg/dL (<150)
[2025-08-18 19:27] LABS: Hematocrit 37.4 % (42.0-52.0); Hemoglobin 12.0 g/dL (14.0-18.0); Immature Granulocyte Percent A 0.2 % (0-0.5); Lymphocytes Absolute Auto 1.95 K/mm3 (0.9-3.2); Mean Corpuscular HGB Conc 32.1 g/dl (32-36); Mean Corpuscular Hemoglobin 30.4 pg (26-34); Mean Corpuscular Volume 94.7 fl (80-100); Nucleated Red Blood Cells Absolute Auto 0.000 K/mm3 (0.0-0.012); Nucleated Red Blood Cells Perc 0.0 % (0.0-0.2); Platelet Count Result 285 k/mm3 (150-375); Red Blood Count 3.95 M/mm3 (4.6-6.20); White Blood Count 8.3 K/mm3 (4.5-10.0)
[2025-08-18 19:31] LABS: Prostate Specific Antigen 0.7 ng/mL (< OR = 4.0)
[2025-08-18 19:49] LABS: Hemoglobin A1C 5.1 % (<5.7)
[2025-08-18 19:51] LABS: Vitamin B12 492.0 pg/mL (239-931)
[2025-08-18 19:58] LABS: Thyroid Stimulating Hormone Reflex 0.342 uIU/mL (0.465-4.68)
[2025-08-18 23:08] LABS: Free T4 Free Thyroxine Reflex 1.58 ng/dL (0.78-2.19)
[2025-08-19 00:01] LABS: Total Triiodothyronine (T3) 0.74 NG/ML (0.82-1.58)
== END 2025-08-18 08:18 | disposition home or self-care (01) ==
LOC: ANHGOSHLAB 08:19
PROVIDERS: PCP Family Medicine; Visit Provider Family Medicine
DX: E03.9 Hypothyroidism, unspecified (principal); I10 Essential (primary) hypertension; Z12.5 Encounter for screening for malignant neoplasm of prostate; R73.9 Hyperglycemia, unspecified; E55.9 Vitamin D deficiency, unspecified; M06.9 Rheumatoid arthritis, unspecified; Z00.00 Encounter for general adult medical examination without abnormal findings; E78.5 Hyperlipidemia, unspecified; E53.8 Deficiency of other specified B group vitamins
CPT/HCPCS: 36415; 80053; 80061; 82306; 82607; 83036; 84153; 84439; 84443; 84480; 85025; G0103